=== PATIENT | female | born 1935 | race Caucasian/White ===

== ENCOUNTER 2018-02-04 12:27 | Inpatient (IN) | payer MEDICARE, BC ==
[2018-02-04] MEDS ORDERED: Sodium Chloride 0.9% 1,000 ML IV SCH (13:30)
--- NOTE | 2018-02-04 13:34 | EDM.PDOC ---
ED HPI GENERAL MEDICAL PROBLEM - General Chief Complaint: Gastrointestinal Problem Stated Complaint: WEAK/DEHYDRATED/DISORIENTED Time Seen by Provider: 02/04/18 13:15 Source of Information: Reports: Patient, Family History Limitations: Reports: No Limitations - History of Present Illness INITIAL COMMENTS - FREE TEXT/NARRATIVE: 82-year-old female that struggles with chronic diarrhea likely due to medication she takes for rheumatoid arthritis. She saw her primary provider several days ago, and is rechecking tomorrow but felt especially weak today so her daughter brought her in. She has no shortness of breath or palpitations, no vomiting. She has joint and extremity pain but no abdominal pain. She is also having problems with skin breakdown in the buttock crease area. She has chronic diarrheal incontinence with some urinary incontinence as well. She also seemed somewhat more confused today. Denies headache. Onset: Gradual Severity: Moderate Associated Symptoms: Reports: Confusion, Weakness. Denies: Fever/Chills, Headaches, Nausea/Vomiting, Shortness of Breath Denies Pain Score (Numeric/FACES): 0 - Related Data Allergies Allergy/AdvReac Type Severity Reaction Status Date / Time Sulfa (Sulfonamide Allergy Swelling Verified 02/04/18 16:11 Antibiotics) Home Meds: Home Meds Aspirin [Kathia Chewable Aspirin] 81 mg PO DAILY 05/15/14 [History] Calcium Carbonate/Vitamin D3 [Caltrate 600+D 1500 MG-400 Units] 1 tab PO DAILY 05/15/14 [History] Cholecalciferol (Vitamin D3) [Vitamin D3] 1 tab PO DAILY 05/15/14 [History] Ezetimibe [Zetia] 5 mg PO DAILY 05/15/14 [History] Folic Acid 2 mg PO SUTUWETHFRSA@0900 05/15/14 [History] Leflunomide [Arava] 10 mg PO DAILY 05/15/14 [History] Losartan/Hydrochlorothiazide [Hyzaar 100-25] 0.5 tab PO DAILY 05/15/14 [History] Fenofibric Acid [Fibricor] 135 mg PO DAILY 08/29/16 [History] Methotrexate Sodium/PF [Methotrexate 50 mg/2 ml Vial] 15 mg SQ WEEKLY 08/29/16 [ History] Verapamil HCl [Calan Sr] 180 mg PO DAILY 08/29/16 [History] Past Medical History HEENT History: Reports: Impaired Vision Cardiovascular History: Reports: Hypertension Other Cardiovascular History: congenital septal defect-repaired Gastrointestinal History: Reports: Other (See Below) Other Gastrointestinal History: hx of diarrhea [employer] History: Reports: Musculoskeletal History: Reports: RA Neurological History: Reports: CVA - Infectious Disease History Infectious Disease History: Reports: Chicken Pox, Measles, Mumps - Past Surgical History Cardiovascular Surgical History: Reports: Percutaneous Transluminal Angioplasty GI Surgical History: Reports: Appendectomy, Colon, Colonoscopy Musculoskeletal Surgical History: Reports: Hip Replacement Social & Family History - Tobacco Use Smoking Status *Q: Never Smoker Years of Tobacco use: 40 Used Tobacco, but Quit: Yes Month/Year Tobacco Last Used: 1997 Second Hand Smoke Exposure: No - Caffeine Use Caffeine Use: Reports: Coffee, Soda - Alcohol Use Days Per Week of Alcohol Use: 5 Number of Drinks Per Day: 1 Total Drinks Per Week: 5 - Recreational Drug Use Recreational Drug Use: No ED ROS GENERAL - Review of Systems Review Of Systems: See Below Constitutional: Reports: Malaise, Weakness. Denies: Fever, Chills HEENT: Reports: No Symptoms Respiratory: Denies: Shortness of Breath, Cough Cardiovascular: Denies: Chest Pain GI/Abdominal: Reports: Diarrhea, Decreased Appetite. Denies: Abdominal Pain, Nausea, Vomiting : Reports: Incontinence Skin: Reports: Other (Concerned about skin breakdown in the buttock crease) Neurological: Reports: Confusion, Dizziness, Weakness ED EXAM, GENERAL - Physical Exam Exam: See Below Exam Limited By: No Limitations General Appearance: Alert, No Apparent Distress Eye Exam: Right Eye: Other (No scleral icterus, well-hydrated), Bilateral Eye: EOMI Throat/Mouth: Normal Inspection, Other (Dentures are present) Head: Atraumatic Respiratory/Chest: No Respiratory Distress, Lungs Clear Cardiovascular: Regular Rate, Rhythm, Extra Beats (Patient has frequent extra beats) GI/Abdominal: Soft, Non-Tender (Female) Exam: Other (Patient has significant erythema with developing shallow ulcerations in the creases of the groin and buttock area, likely from the exposure to the diarrhea. These areas are very tender.) Extremities: Other (Some swelling of the ankles bilaterally, chronic) Neurological: Alert, Oriented Psychiatric: Normal Affect, Normal Mood Course - Vital Signs Last Recorded V/S: Last Vital Signs Temp 97.5 F 02/05/18 06:00 Pulse 75 02/05/18 06:00 Resp 14 02/05/18 06:00 BP 142/91 H 02/05/18 06:00 Pulse Ox 97 02/05/18 06:00 - Orders/Labs/Meds Orders: Active Orders 24 hr Category Date Time Status CLOSTRIDIUM DIFFICILE BY PCR [RM] Stat Lab 02/04/18 16:18 Received CULTURE STOOL + SHIGATOX [RM] Stat Lab 02/04/18 16:18 Received UA W/MICROSCOPIC [URIN] Urgent Lab 02/04/18 14:10 Ordered WBC, STOOL [OP] Stat Lab 02/04/18 16:18 Ordered Sodium Chloride 0.9% [Normal Saline] 1,000 ml Med 02/04/18 13:30 Active IV ASDIRECTED Medication Orders Aspirin (Halfprin) 81 mg PO DAILY [facility] Calcium Carbonate (Caltrate 600+D 1500 Mg-400 Units) 1 tab PO DAILY [facility] Cholecalciferol (Vitamin D3) 1,000 units PO DAILY [facility] Diphenoxylate HCl/Atropine (Lomotil 0.025-2.5 Mg) 1 - 2 tab PO QID PRN PRN Reason: Diarrhea Ezetimibe (Zetia) 5 mg PO DAILY [facility] Fenofibrate (Fenofibrate) 134 mg PO DAILY [facility] Folic Acid (Folic Acid) 2 mg PO SUTUWETHFRSA@0900 HENRIQUE Hydrochlorothiazide (Hydrochlorothiazide) 12.5 mg PO DAILY [facility] Sodium Chloride (Normal Saline) 1,000 mls @ 1,000 mls/hr IV ASDIRECTED HENRIQUE Last Admin: 02/04/18 13:39 Dose: 1,000 mls/hr Lactated Ringer's (Ringers, Lactated) 1,000 mls @ 125 mls/hr IV ASDIRECTED HENRIQUE Last Admin: 02/05/18 01:29 Dose: 125 mls/hr Infusion: 02/05/18 01:29 Dose: 125 mls/hr Admin: 02/04/18 17:39 Dose: 125 mls/hr Leflunomide (Arava) 10 mg PO DAILY [facility] Losartan Potassium (Cozaar) 50 mg PO DAILY [facility] Non-Formulary Medication (Methotrexate Sodium/Pf [Methotrexate 50 Mg/2 Ml Vial] ) 15 mg SQ WEEKLY [facility] Verapamil HCl (Calan Sr) 180 mg PO DAILY [facility] Labs: Laboratory Tests 04/02/04/18 02/04/18 Range/Units 13:27 13:27 14:10 WBC 7.9 (4.5-11.0) K/uL RBC 3.59 (3.30-5.50) M/uL Hgb 11.5 L (12.0-15.0) g/dL Hct 35.9 L (36.0-48.0) % MCV 100 H (80-98) fL MCH 32 H (27-31) pg MCHC 32 (32-36) % Plt Count 214 (150-400) K/uL Neut % (Auto) 75 H (36-66) % Lymph % (Auto) 10 L (24-44) % [place] % (Auto) 11 H (2-6) % Eos % (Auto) 3 (2-4) % Baso % (Auto) 1 (0-1) % Sodium 142 (140-148) mmol/L Potassium 4.2 (3.6-5.2) mmol/L Chloride 106 (100-108) mmol/L Carbon Dioxide 27 (21-32) mmol/L Anion Gap 8.9 (5.0-14.0) mmol/L BUN 22 H D (7-18) mg/dL Creatinine 1.0 D (0.6-1.0) mg/dL Est Cr Clr Drug Dosing 38.36 mL/min Estimated GFR (MDRD) 53 L (>60) Glucose 93 (74-106) mg/dL Calcium 9.0 D (8.5-10.1) mg/dL Total Bilirubin 0.8 (0.2-1.0) mg/dL AST 30 (15-37) U/L ALT 26 (12-78) U/L Alkaline Phosphatase 128 H D (46-116) U/L Total Protein 5.9 L (6.4-8.2) g/dL Albumin 3.2 L (3.4-5.0) g/dL Globulin 2.7 (2.3-3.5) g/dL Albumin/Globulin Ratio 1.2 (1.2-2.2) Urine Color Yellow Urine Appearance Clear Urine pH 6.0 (4.5-8.0) Ur Specific [place] 1.010 (1.008-1.030) Urine Protein Negative (NEGATIVE) mg/dL Urine Glucose (UA) Normal (NEGATIVE) mg/dL Urine Ketones Negative (NEGATIVE) mg/dL Urine Occult Blood Negative (NEGATIVE) Urine Nitrite Negative (NEGATIVE) Urine Bilirubin Negative (NEGATIVE) Urine Urobilinogen Normal (NORMAL) mg/dL Ur Leukocyte Esterase Negative (NEGATIVE) Urine RBC Not seen (0-5) Urine WBC Not seen (0-5) Ur Epithelial Cells Few Amorphous Sediment Rare Urine Bacteria Not seen Urine Mucus Not seen Meds: Medications Generic Name Dose Route Start Last Admin Trade Name Freq PRN Reason Stop Dose Admin Aspirin 81 mg 02/05/18 09:00 Halfprin PO DAILY [facility] Calcium Carbonate 1 tab 02/05/18 09:00 Caltrate 600+D 1500 Mg-400 Units PO DAILY HENRIQUE Cholecalciferol 1,000 units 02/05/18 09:00 Vitamin D3 PO DAILY [facility] Diphenoxylate HCl/Atropine 1 - 2 tab 02/04/18 16:19 Lomotil 0.025-2.5 Mg PO QID PRN Diarrhea Ezetimibe 5 mg 02/05/18 09:00 Zetia PO DAILY [facility] Fenofibrate 134 mg 02/05/18 09:00 Fenofibrate PO DAILY [facility]ENRIQUE Folic Acid 2 mg 02/06/18 09:00 Folic Acid PO SUTUWETHFRSA@0900 HENRIQUE Hydrochlorothiazide 12.5 mg 02/05/18 09:00 Hydrochlorothiazide PO DAILY [facility] Sodium Chloride 1,000 mls @ 1,000 mls/hr 02/04/18 13:30 02/04/18 13:39 Normal Saline IV 1,000 mls/hr ASDIRECTED HENRIQUE Administration Lactated Ringer's 1,000 mls @ 125 mls/hr 02/04/18 16:00 02/05/18 01:29 Ringers, Lactated IV 125 mls/hr ASDIRECTED HENRIQUE Administration Leflunomide 10 mg 02/05/18 09:00 Arava PO DAILY [facility] Losartan Potassium 50 mg 02/05/18 09:00 Cozaar PO DAILY [facility] Non-Formulary Medication 15 mg 02/04/18 16:15 Methotrexate Sodium/Pf [Methotrexate 50 Mg/2 Ml Vial] SQ WEEKLY HENRIQUE Verapamil HCl 180 mg 02/05/18 09:00 Calan Sr PO DAILY HENRIQUE - Re-Assessments/Exams Free Text/Narrative Re-Assessment/Exam: 02/04/18 13:34 CBC and CMP were obtained, as well as a quick catheter UA. Patient was given 1000 mL of normal saline. 02/04/18 15:09 UA is normal. CMP reveals a mildly elevated BUN and creatinine, possibly from dehydration. She is mildly anemic but her white count is normal. I discussed her case with her primary care physician Dr. Molina, and he agreed to see her to consider admission for ongoing treatment of profuse watery diarrhea, dehydration, dermatitis of the perineum and buttock as well as weakness. Departure - Departure Time of Disposition: 16:55 Disposition: Admitted As Inpatient 65 Condition: Fair Clinical Impression: Weakness generalized, Dermatitis associated with incontinence Diarrhea Qualifiers: Diarrhea type: unspecified type Qualified Code(s): R19.7 - Diarrhea, unspecified - Discharge Information - My Orders Last 24 Hours: My Active Orders 02/04/18 13:30 Sodium Chloride 0.9% [Normal Saline] 1,000 ml IV ASDIRECTED 02/04/18 14:10 UA W/MICROSCOPIC [URIN] Urgent 02/04/18 16:18 CLOSTRIDIUM DIFFICILE BY PCR [RM] Stat CULTURE STOOL + SHIGATOX [RM] Stat WBC, STOOL [OP] Stat - Assessment/Plan Last 24 Hours: My Active Orders 02/04/18 13:30 Sodium Chloride 0.9% [Normal Saline] 1,000 ml IV ASDIRECTED 02/04/18 14:10 UA W/MICROSCOPIC [URIN] Urgent 02/04/18 16:18 CLOSTRIDIUM DIFFICILE BY PCR [RM] Stat CULTURE STOOL + SHIGATOX [RM] Stat WBC, STOOL [OP] Stat
--- NOTE | 2018-02-04 16:11 | PCM.HP ---
H&P History of Present Illness - General Date of Service: 02/04/18 Admit Problem/Dx: Admission Diagnosis/Problem Admission Diagnosis/Problem Dehydration Source of Information: Patient - History of Present Illness Initial Comments - Free Text/Narative: Ruby has had diarrhea for >1 month according to the . The color is brow without any blood or mucus. She has never had it before. She is unable to control the stool at home and she doesn't make it to the bathroom in time and diarrhea is on the rub and the bed. Severity: Severe Denies Pain Score (Numeric/FACES): 0 - Related Data Allergies/Adverse Reactions: Allergies Allergy/AdvReac Type Severity Reaction Status Date / Time Sulfa (Sulfonamide Allergy Swelling Verified 02/04/18 16:11 Antibiotics) Home Medications: Home Meds Aspirin [Kathia Chewable Aspirin] 81 mg PO DAILY 05/15/14 [History] Calcium Carbonate/Vitamin D3 [Caltrate 600+D 1500 MG-400 Units] 1 tab PO DAILY 05/15/14 [History] Cholecalciferol (Vitamin D3) [Vitamin D3] 1 tab PO DAILY 05/15/14 [History] Ezetimibe [Zetia] 5 mg PO DAILY 05/15/14 [History] Folic Acid 2 mg PO SUTUWETHFRSA@0900 05/15/14 [History] Leflunomide [Arava] 10 mg PO DAILY 05/15/14 [History] Losartan/Hydrochlorothiazide [Hyzaar 100-25] 0.5 tab PO DAILY 05/15/14 [History] Fenofibric Acid [Fibricor] 135 mg PO DAILY 08/29/16 [History] Methotrexate Sodium/PF [Methotrexate 50 mg/2 ml Vial] 15 mg SQ WEEKLY 08/29/16 [ History] Verapamil HCl [Calan Sr] 180 mg PO DAILY 08/29/16 [History] Past Medical History HEENT History: Reports: Impaired Vision Cardiovascular History: Reports: Hypertension Other Cardiovascular History: congenital septal defect-repaired Gastrointestinal History: Reports: Other (See Below) Other Gastrointestinal History: hx of diarrhea [employer] History: Reports: Musculoskeletal History: Reports: RA Neurological History: Reports: CVA - Infectious Disease History Infectious Disease History: Reports: Chicken Pox, Measles, Mumps - Past Surgical History Cardiovascular Surgical History: Reports: Percutaneous Transluminal Angioplasty GI Surgical History: Reports: Appendectomy, Colon, Colonoscopy Musculoskeletal Surgical History: Reports: Hip Replacement Social & Family History - Tobacco Use Smoking Status *Q: Never Smoker Years of Tobacco use: 40 Used Tobacco, but Quit: Yes Month/Year Tobacco Last Used: 1997 Second Hand Smoke Exposure: No - Caffeine Use Caffeine Use: Reports: Coffee, Soda - Alcohol Use Days Per Week of Alcohol Use: 5 Number of Drinks Per Day: 1 Total Drinks Per Week: 5 - Recreational Drug Use Recreational Drug Use: No H&P Review of Systems - Review of Systems: Review Of Systems: See Below General: Reports: Weakness, Fatigue Gastrointestinal: Reports: Diarrhea, Decreased Appetite Genitourinary: Reports: No Symptoms Musculoskeletal: Reports: No Symptoms Skin: Reports: Rash Psychiatric: Reports: No Symptoms Neurological: Reports: No Symptoms Exam - Exam Exam: See Below - Vital Signs Vital Signs: Last Vital Signs Temp 96.8 F 02/04/18 13:01 Pulse 80 02/04/18 14:00 Resp 16 02/04/18 14:00 BP 168/87 H 02/04/18 14:00 Pulse Ox 96 02/04/18 14:00 Weight: 160 lb - Exam General: Alert, Oriented, Cooperative, Mild Distress HEENT: PERRLA, Hearing Intact, Mucosa Moist & [place], Nares Patent, Normal Nasal Septum, Posterior Pharynx Clear, Conjunctiva Clear, EOMI, EACs Clear, TMs Clear Neck: Supple, Trachea Midline, 2 Lungs: Clear to Auscultation, Normal Respiratory Effort Cardiovascular: Regular Rate, Regular Rhythm GI/Abdominal Exam: Normal Bowel Sounds, Soft, Non-Tender, No Organomegaly, No Distention, No Abnormal Bruit, No Mass, Pelvis Stable Extremities: Normal Inspection, Normal Range of Motion, Non-Tender, No Pedal Edema, Normal Capillary Refill Peripheral Pulses: 1+: Radial (L), Radial (R) Skin: Warm, Dry, Intact Neuro Extensive - Mental Status: Alert, Oriented x3, Normal Mood/Affect, Normal Cognition Neuro Extensive - Motor, Sensory, Reflexes: CN II-XII Intact, Normal Gait, Normal Reflexes DTR: 1+: Bicep (L), Bicep (R) Psychiatric: Alert, Normal Affect, Normal Mood - Patient Data Lab Results Last 24 hrs: Laboratory Results - last 24 hr 02/04/18 02/04/18 02/04/18 Range/Units 13:27 13:27 14:10 WBC 7.9 (4.5-11.0) K/uL RBC 3.59 (3.30-5.50) M/uL Hgb 11.5 L (12.0-15.0) g/dL Hct 35.9 L (36.0-48.0) % MCV 100 H (80-98) fL MCH 32 H (27-31) pg MCHC 32 (32-36) % Plt Count 214 (150-400) K/uL Neut % (Auto) 75 H (36-66) % Lymph % (Auto) 10 L (24-44) % [place] % (Auto) 11 H (2-6) % Eos % (Auto) 3 (2-4) % Baso % (Auto) 1 (0-1) % Sodium 142 (140-148) mmol/L Potassium 4.2 (3.6-5.2) mmol/L Chloride 106 (100-108) mmol/L Carbon Dioxide 27 (21-32) mmol/L Anion Gap 8.9 (5.0-14.0) mmol/L BUN 22 H D (7-18) mg/dL Creatinine 1.0 D (0.6-1.0) mg/dL Est Cr Clr Drug Dosing 38.36 mL/min Estimated GFR (MDRD) 53 L (>60) Glucose 93 (74-106) mg/dL Calcium 9.0 D (8.5-10.1) mg/dL Total Bilirubin 0.8 (0.2-1.0) mg/dL AST 30 (15-37) U/L ALT 26 (12-78) U/L Alkaline Phosphatase 128 H D (46-116) U/L Total Protein 5.9 L (6.4-8.2) g/dL Albumin 3.2 L (3.4-5.0) g/dL Globulin 2.7 (2.3-3.5) g/dL Albumin/Globulin Ratio 1.2 (1.2-2.2) Urine Color Yellow Urine Appearance Clear Urine pH 6.0 (4.5-8.0) Ur Specific [place] 1.010 (1.008-1.030) Urine Protein Negative (NEGATIVE) mg/dL Urine Glucose (UA) Normal (NEGATIVE) mg/dL Urine Ketones Negative (NEGATIVE) mg/dL Urine Occult Blood Negative (NEGATIVE) Urine Nitrite Negative (NEGATIVE) Urine Bilirubin Negative (NEGATIVE) Urine Urobilinogen Normal (NORMAL) mg/dL Ur Leukocyte Esterase Negative (NEGATIVE) Urine RBC Not seen (0-5) Urine WBC Not seen (0-5) Ur Epithelial Cells Few Amorphous Sediment Rare Urine Bacteria Not seen Urine Mucus Not seen Result Diagrams: 02/04/18 13:27 02/04/18 13:27 Problem List Initiated/Reviewed/Updated: Yes Orders Last 24hrs: Active Orders 24 hr Category Date Time Status Patient Status [ADT] Routine ADT 02/04/18 15:56 Ordered Ambulate [RC] QID Care 02/04/18 15:56 Ordered Height and Weight [RC] DAILY Care 02/04/18 15:56 Ordered Intake and Output [RC] QSHIFT Care 02/04/18 16:00 Ordered Oxygen Therapy [RC] PRN Care 02/04/18 15:56 Ordered Up ad Allison [RC] ASDIRECTED Care 02/04/18 15:56 Ordered VTE/DVT Education [RC] Per Unit Routine Care 02/04/18 15:56 Ordered Vital Signs [RC] Q4H Care 02/04/18 15:56 Ordered Regular Diet [DIET] Diet 02/04/18 Dinner Ordered BASIC METABOLIC PANEL,BMP [CHEM] AM Lab 02/05/18 05:11 Ordered CLOSTRIDIUM DIFFICILE BY PCR [] Stat Lab 02/04/18 15:11 Ordered CULTURE STOOL + SHIGATOX [] Stat Lab 02/04/18 15:11 Ordered UA W/MICROSCOPIC [URIN] Urgent Lab 02/04/18 14:10 Ordered WBC, STOOL [OP] Stat Lab 02/04/18 15:11 Ordered Aspirin Med 02/05/18 09:00 Ordered 81 mg PO DAILY Calcium Carbonate/Vitamin D3 [Caltrate 600+D 1500 MG- Med 02/05/18 09:00 Ordered 400 Units] 1 tab PO DAILY Cholecalciferol (Vitamin D3) [Vitamin D3] Med 02/05/18 09:00 Ordered 1 tab PO DAILY Ezetimibe [Zetia] Med 02/05/18 09:00 Ordered 5 mg PO DAILY Fenofibric Acid [Fibricor] Med 02/05/18 09:00 Ordered 135 mg PO DAILY Folic Acid Med 02/06/18 09:00 Ordered 2 mg PO SUTUWETHFRSA@0900 Lactated Ringers @ 125 MLS/HR(1000ml) Med 02/04/18 16:00 Ordered Lactated Ringers [Ringers, Lactated] 1,000 ml IV ASDIRECTED Leflunomide [Arava] Med 02/05/18 09:00 Ordered 10 mg PO DAILY Losartan/Hydrochlorothiazide [Hyzaar 100-25] Med 02/05/18 09:00 Ordered 0.5 tab PO DAILY Methotrexate Sodium/PF [Methotrexate 50 mg/2 ml Vial] Med 02/04/18 16:15 Ordered 15 mg SQ WEEKLY Sodium Chloride 0.9% [Normal Saline] 1,000 ml Med 02/04/18 13:30 Active IV ASDIRECTED Verapamil [Calan SR] Med 02/05/18 09:00 Ordered 180 mg PO DAILY Resuscitation Status Routine Resus Stat 02/04/18 15:56 Ordered Medication Orders Aspirin (Aspirin) 81 mg PO DAILY [facility]ENRI[facility] Calcium Carbonate (Caltrate 600+D 1500 Mg-400 Units) 1 tab PO DAILY [facility] Ezetimibe (Zetia) 5 mg PO DAILY [facility] Folic Acid (Folic Acid) 2 mg PO SUTUWETHFRSA@0900 HENRIQUE Sodium Chloride (Normal Saline) 1,000 mls @ 1,000 mls/hr IV ASDIRECTED HENRIQUE Last Admin: 02/04/18 13:39 Dose: 1,000 mls/hr Lactated Ringer's (Ringers, Lactated) 1,000 mls @ 125 mls/hr IV ASDIRECTED HENRIQUE Non-Formulary Medication (Cholecalciferol (Vitamin D3) [Vitamin D3]) 1 tab PO DAILY [facility]QUE Non-Formulary Medication (Fenofibric Acid [Fibricor]) 135 mg PO DAILY [facility]RIQUE Non-Formulary Medication (Leflunomide [Arava]) 10 mg PO DAILY [facility] Non-Formulary Medication (Losartan/Hydrochlorothiazide [Hyzaar 100-25]) 0.5 tab PO DAILY [facility]RIQUE Non-Formulary Medication (Methotrexate Sodium/Pf [Methotrexate 50 Mg/2 Ml Vial] ) 15 mg SQ WEEKLY [facility]ENRIQUE Verapamil HCl (Calan Sr) 180 mg PO DAILY HENRIQUE Assessment/Plan Comment:: Assessment/Plan: #1. Diarrhea: Stool tests are pending. Will give Lomotil as Needed #2. HTN: Continue with Verapamil and Losartan #3. HLD: Will hold Zetia #4. RA: Continue with Meds.
[2018-02-04] MEDS ORDERED: Atropine/Diphenoxylate 0.025-2.5 MG Tab PO PRN (16:19)
[2018-02-04] MEDS: Lactated Ringers 1,000 ML IV SCH (17:39)
[2018-02-04] MEDS ORDERED: Diphtheria,Pertussis(Acell),Tetanus Vaccine 0.5 ML SDV IM ONE (23:01)
[2018-02-05] MEDS: Lactated Ringers 1,000 ML IV SCH (01:29)
[2018-02-05] MEDS: Fenofibrate,Micronized 67 MG Cap PO SCH (10:13)
[2018-02-05] MEDS: Ezetimibe 10 MG Tab PO SCH (10:13)
[2018-02-05] MEDS: Cholecalciferol (Vitamin D3) 1,000 Unit Tab PO SCH (10:14)
[2018-02-05] MEDS: Calcium Carbonate/Vitamin D3 1500 MG-400 Units Tab PO SCH (10:14)
[2018-02-05] MEDS: Verapamil 180 MG Tab.ER PO SCH (10:14)
[2018-02-05] MEDS: Hydrochlorothiazide 12.5 MG Cap PO SCH (10:14)
[2018-02-05] MEDS: Aspirin 81 MG Tab.EC PO SCH (10:14)
[2018-02-05] MEDS: Leflunomide 20 MG Tab PO SCH (10:14)
[2018-02-05] MEDS: Losartan 50 MG Tab PO SCH (10:15)
[2018-02-05] MEDS ORDERED: Polyethylene Glycol 3350 Powder 238 GM Bot PO ONE (18:10)
--- NOTE | 2018-02-05 18:13 | PCM.PN ---
- General Info Date of Service: 02/05/18 - Review of Systems General: Reports: Weakness HEENT: Reports: No Symptoms Pulmonary: Reports: No Symptoms Cardiovascular: Reports: No Symptoms Gastrointestinal: Reports: No Symptoms Genitourinary: Reports: No Symptoms Musculoskeletal: Reports: No Symptoms Psychiatric: Reports: No Symptoms - Patient Data Vitals - Most Recent: Last Vital Signs Temp 98.0 F 02/05/18 12:00 Pulse 80 02/05/18 12:00 Resp 18 02/05/18 12:00 BP 150/80 H 02/05/18 12:00 Pulse Ox 96 02/05/18 12:00 Weight - Most Recent: 163 lb I&O - Last 24 Hours: Intake & Output 02/05/18 02/05/18 02/05/18 06:59 14:59 22:59 Intake Total 1359 500 Output Total 500 500 1 Balance 859 0 -1 Lab Results Last 24 Hours: Laboratory Results - last 24 hr 02/05/18 Range/Units 05:37 Sodium 146 (140-148) mmol/L Potassium 3.8 (3.6-5.2) mmol/L Chloride 110 H (100-108) mmol/L Carbon Dioxide 29 (21-32) mmol/L Anion Gap 10.8 (5.0-14.0) mmol/L BUN 16 (7-18) mg/dL Creatinine 0.8 (0.6-1.0) mg/dL Est Cr Clr Drug Dosing 47.87 mL/min Estimated GFR (MDRD) > 60 (>60) Glucose 85 (74-106) mg/dL Calcium 8.4 L (8.5-10.1) mg/dL [place] Results Last 24 Hours: Microbiology 02/04/18 16:18 Clostridium difficile (PCR) - Final Stool / Feces NEGATIVE CDIFF TOXIN 02/04/18 16:18 Stool for WBCs - Final Stool / Feces NO WBC SEEN Med Orders - Current: Current Medications Aspirin (Halfprin) 81 mg PO DAILY [facility] Last Admin: 02/05/18 10:14 Dose: 81 mg Calcium Carbonate (Caltrate 600+D 1500 Mg-400 Units) 1 tab PO DAILY [facility] Last Admin: 02/05/18 10:14 Dose: 1 tab Cholecalciferol (Vitamin D3) 1,000 units PO DAILY [facility] Last Admin: 02/05/18 10:14 Dose: 1,000 units Diphenoxylate HCl/Atropine (Lomotil 0.025-2.5 Mg) 1 - 2 tab PO QID PRN PRN Reason: Diarrhea Last Admin: 02/05/18 17:19 Dose: 2 tab Ezetimibe (Zetia) 5 mg PO DAILY [facility] Last Admin: 02/05/18 10:13 Dose: 5 mg Fenofibrate (Fenofibrate) 134 mg PO DAILY [facility] Last Admin: 02/05/18 10:13 Dose: 134 mg Folic Acid (Folic Acid) 2 mg PO SUTUWETHFRSA@0900 [facility] Hydrochlorothiazide (Hydrochlorothiazide) 12.5 mg PO DAILY [facility] Last Admin: 02/05/18 10:14 Dose: 12.5 mg Sodium Chloride (Normal Saline) 1,000 mls @ 1,000 mls/hr IV ASDIRECTED [facility] Last Admin: 02/04/18 13:39 Dose: 1,000 mls/hr Lactated Ringer's (Ringers, Lactated) 1,000 mls @ 125 mls/hr IV ASDIRECTED [facility] Last Admin: 02/05/18 01:29 Dose: 125 mls/hr Leflunomide (Arava) 10 mg PO DAILY [facility] Last Admin: 02/05/18 10:14 Dose: 10 mg Losartan Potassium (Cozaar) 50 mg PO DAILY [facility] Last Admin: 02/05/18 10:15 Dose: 50 mg Non-Formulary Medication (Methotrexate Sodium/Pf [Methotrexate 50 Mg/2 Ml Vial] ) 15 mg SQ WEEKLY [facility] Verapamil HCl (Calan Sr) 180 mg PO DAILY [facility] Last Admin: 02/05/18 10:14 Dose: 180 mg - Exam General: Alert, Oriented HEENT: Pupils Equal, Pupils Reactive, EOMI, Mucous Membr. Moist/[place] Neck: Supple Lungs: Clear to Auscultation, Normal Respiratory Effort Cardiovascular: Regular Rate, Regular Rhythm GI/Abdominal Exam: Normal Bowel Sounds, Soft, Non-Tender, No Organomegaly, No Distention, No Abnormal Bruit, No Mass, Pelvis Stable Peripheral Pulses: 1+: Radial (L), Radial (R) Psy/Mental Status: Alert, Normal Affect, Normal Mood - Problem List Review Problem List Initiated/Reviewed/Updated: Yes - My Orders Last 24 Hours: My Active Orders 02/05/18 08:25 Convert IV to Peripheral Lock [Convert IV to Saline Lock] [OM.PC] Routine 02/05/18 09:00 Aspirin [Halfprin] 81 mg PO DAILY Calcium Carbonate/Vitamin D3 [Caltrate 600+D 1500 MG-400 Units] 1 tab PO DAILY Cholecalciferol (Vitamin D3) [Vitamin D3] 1,000 units PO DAILY Ezetimibe [Zetia] 5 mg PO DAILY Fenofibrate,Micronized [Fenofibrate] 134 mg PO DAILY Hydrochlorothiazide 12.5 mg PO DAILY Leflunomide [Arava] 10 mg PO DAILY Losartan [Cozaar] 50 mg PO DAILY Verapamil [Calan SR] 180 mg PO DAILY 02/05/18 11:38 Consult to Occupational Therapy [OT Evaluation and Treatment] [CONS] Routine SCD [Sequential Compression Device] [OM.PC] Routine 02/06/18 09:00 Folic Acid 2 mg PO IHSAN@0900 - Plan Plan:: Assessment/Plan: #1. Diarrhea: Stool tests are pending. Will give Lomotil as Needed. Willl schedule for colonoscopy and EGD tomorrow. #2. HTN: Continue with Verapamil and Losartan #3. HLD: Will hold Zetia #4. RA: Continue with Meds. #5. Rash in rectal area
[2018-02-05] MEDS ORDERED: Bisacodyl 5 MG Tab PO SCH (18:15)
[2018-02-05] MEDS ORDERED: Dimethicone 20%/Zinc Oxide 25% 56 GM Spray Bottle TOP PRN (21:47)
[2018-02-05] MEDS ORDERED: Bisacodyl 5 MG Tab PO ONE (23:00)
[2018-02-06] MEDS ORDERED: fentaNYL 100 MCG/2 ML SDV ONE (10:01)
[2018-02-06] MEDS ORDERED: Propofol 200 MG/20 ML SDV ONE (10:01)
[2018-02-06] MEDS: Calcium Carbonate/Vitamin D3 1500 MG-400 Units Tab PO SCH (12:46)
[2018-02-06] MEDS: Ezetimibe 10 MG Tab PO SCH (13:46)
[2018-02-06] MEDS: Verapamil 180 MG Tab.ER PO SCH (13:46)
[2018-02-06] MEDS: Losartan 50 MG Tab PO SCH (13:47)
[2018-02-06] MEDS: Aspirin 81 MG Tab.EC PO SCH (13:47)
[2018-02-06] MEDS: Cholecalciferol (Vitamin D3) 1,000 Unit Tab PO SCH (13:47)
[2018-02-06] MEDS: Fenofibrate,Micronized 67 MG Cap PO SCH (13:47)
[2018-02-06] MEDS: Folic Acid 1 MG Tab PO SCH (13:47)
[2018-02-06] MEDS: Hydrochlorothiazide 12.5 MG Cap PO SCH (13:47)
[2018-02-06] MEDS: Leflunomide 20 MG Tab PO SCH (13:48)
[2018-02-06] MEDS ORDERED: Methotrexate PF 50 MG/2 ML SDV SUBCUT SCH (14:00)
[2018-02-06] MEDS: Pantoprazole 40 MG Tab.CR PO SCH (15:00)
--- NOTE | 2018-02-06 20:53 | PCM.PN ---
- General Info Date of Service: 02/06/18 - Review of Systems General: Reports: Weakness HEENT: Reports: No Symptoms Pulmonary: Reports: No Symptoms Cardiovascular: Reports: No Symptoms Gastrointestinal: Reports: No Symptoms, Diarrhea Genitourinary: Reports: No Symptoms Musculoskeletal: Reports: No Symptoms Skin: Reports: No Symptoms Neurological: Reports: No Symptoms Psychiatric: Reports: No Symptoms - Patient Data Vitals - Most Recent: Last Vital Signs Temp 96.7 F 02/06/18 18:00 Pulse 68 02/06/18 18:00 Resp 14 02/06/18 18:00 BP 121/53 L 02/06/18 18:00 Pulse Ox 96 02/06/18 18:00 Weight - Most Recent: 163 lb I&O - Last 24 Hours: Intake & Output 02/06/18 02/06/18 02/06/18 06:59 14:59 22:59 Intake Total 1100 600 Output Total 350 300 Balance 1100 -350 300 [place] Results Last 24 Hours: Microbiology 02/04/18 16:18 Stool Culture - Preliminary Stool / Feces NORMAL ENTERIC ANALI 1 DAY - Final NEGATIVE FOR SHIGA TOXIN 1 - Final NEGATIVE FOR SHIGA TOXIN 2 Clostridium difficile (PCR) - Final NEGATIVE CDIFF TOXIN Med Orders - Current: Current Medications Aspirin (Halfprin) 81 mg PO DAILY [facility] Last Admin: 02/06/18 13:47 Dose: 81 mg Calcium Carbonate (Caltrate 600+D 1500 Mg-400 Units) 1 tab PO DAILY [facility] Last Admin: 02/06/18 12:46 Dose: Not Given Cholecalciferol (Vitamin D3) 1,000 units PO DAILY [facility] Last Admin: 02/06/18 13:47 Dose: 1,000 units Dimethicone/Zinc Oxide (Rash Relief-Zinc Oxide [place]) 0 gm TOP ASDIRECTED PRN PRN Reason: Rash Last Admin: 02/05/18 22:27 Dose: 1 applic Diphenoxylate HCl/Atropine (Lomotil 0.025-2.5 Mg) 1 - 2 tab PO QID PRN PRN Reason: Diarrhea Last Admin: 02/05/18 17:19 Dose: 2 tab Ezetimibe (Zetia) 5 mg PO DAILY [facility] Last Admin: 02/06/18 13:46 Dose: 5 mg Fenofibrate (Fenofibrate) 134 mg PO DAILY [facility] Last Admin: 02/06/18 13:47 Dose: 134 mg Folic Acid (Folic Acid) 2 mg PO SUTUWETHFRSA@0900 REPL[facility]ED [facility] Last Admin: 02/06/18 13:47 Dose: 2 mg Hydrochlorothiazide (Hydrochlorothiazide) 12.5 mg PO DAILY [facility] Last Admin: 02/06/18 13:47 Dose: 12.5 mg Leflunomide (Arava) 10 mg PO DAILY [facility] Last Admin: 02/06/18 13:48 Dose: 10 mg Losartan Potassium (Cozaar) 50 mg PO DAILY [facility] Last Admin: 02/06/18 13:47 Dose: 50 mg Methotrexate Sodium (Methotrexate Pf) 15 mg SUBCUT Tu@1400 REPLACED BY [facility] Last Admin: 02/06/18 14:13 Dose: 15 mg Pantoprazole Sodium (Protonix) 40 mg PO DAILY@0730 REPLACED BY [facility] Last Admin: 02/06/18 15:00 Dose: 40 mg Verapamil HCl (Calan Sr) 180 mg PO DAILY [facility] Last Admin: 02/06/18 13:46 Dose: 180 mg Discontinued Medications Bisacodyl (Dulcolax) 10 mg PO DAILY [facility] Last Admin: 02/05/18 18:35 Dose: 10 mg Bisacodyl (Dulcolax) 10 mg PO ONETIME ONE Stop: 02/05/18 23:01 Last Admin: 02/05/18 22:18 Dose: 10 mg Fentanyl (Sublimaze) Confirm Administered Dose 100 mcg .ROUTE .STK-MED ONE Stop: 02/06/18 10:02 Sodium Chloride (Normal Saline) 1,000 mls @ 1,000 mls/hr IV ASDIRECTED REPLACED BY [facility] Last Admin: 02/04/18 13:39 Dose: 1,000 mls/hr Lactated Ringer's (Ringers, Lactated) 1,000 mls @ 125 mls/hr IV ASDIRECTED REPLACED BY [facility] Last Admin: 02/05/18 01:29 Dose: 125 mls/hr Polyethylene Glycol (Miralax) 238 gm PO ONETIME ONE Stop: 02/05/18 18:11 Last Admin: 02/05/18 18:35 Dose: 238 gm Propofol (Diprivan 20 Ml) Confirm Administered Dose 200 mg .ROUTE .STK-MED ONE Stop: 02/06/18 10:02 - Exam General: Alert, Oriented HEENT: Pupils Equal, Pupils Reactive, EOMI, Mucous Membr. Moist/[place] Neck: Supple Lungs: Clear to Auscultation, Normal Respiratory Effort Cardiovascular: Regular Rate, Regular Rhythm GI/Abdominal Exam: Non-Tender Peripheral Pulses: 1+: Radial (L), Radial (R) Skin: Warm, Dry, Intact Psy/Mental Status: Alert, Normal Affect, Normal Mood - Problem List Review Problem List Initiated/Reviewed/Updated: Yes - My Orders Last 24 Hours: My Active Orders 02/05/18 21:47 Dimethicone/Zinc Oxide [Rash Relief-Zinc Oxide [place]] 0 gm TOP ASDIRECTED PRN 02/06/18 09:00 Verify Patient Consent Obtain [RC] ASDIRECTED Folic Acid 2 mg PO SUTUWETHFRSA@0900 02/06/18 10:50 IDA TEST [RM] Routine 02/06/18 14:00 Methotrexate PF 15 mg SUBCUT Tu@1400 02/06/18 15:00 Pantoprazole [ProTONIX] 40 mg PO DAILY@0730 02/06/18 Dinner Advance Diet Instructions [DIET] - Plan Plan:: Assessment/Plan: #1. Diarrhea: Neg stools so far. EGD showed severe gastritis bx pending. Colon was normal. #2. HTN: Continue with Verapamil and Losartan #3. HLD: Will hold Zetia #4. RA: Continue with Meds. #5. Rash in rectal area Plan home in the AM is stable.+
--- NOTE | 2018-02-07 08:03 | PCM.PN ---
- General Info Date of Service: 02/07/18 - Review of Systems General: Reports: No Symptoms HEENT: Reports: No Symptoms Pulmonary: Reports: No Symptoms Cardiovascular: Reports: No Symptoms Gastrointestinal: Reports: No Symptoms Genitourinary: Reports: No Symptoms Musculoskeletal: Reports: No Symptoms Skin: Reports: No Symptoms Neurological: Reports: No Symptoms Psychiatric: Reports: No Symptoms - Patient Data Vitals - Most Recent: Last Vital Signs Temp 97.7 F 02/07/18 05:25 Pulse 80 02/07/18 05:25 Resp 18 02/07/18 05:25 BP 147/72 H 02/07/18 05:25 Pulse Ox 96 02/07/18 05:25 Weight - Most Recent: 163 lb I&O - Last 24 Hours: Intake & Output 02/06/18 02/07/18 02/07/18 22:59 06:59 14:59 Intake Total 600 Output Total 300 200 325 Balance 300 -200 -325 [place] Results Last 24 Hours: Microbiology 02/04/18 16:18 Stool Culture - Preliminary Stool / Feces NORMAL ENTERIC ANALI 2 DAYS - Final NEGATIVE FOR SHIGA TOXIN 1 - Final NEGATIVE FOR SHIGA TOXIN 2 Clostridium difficile (PCR) - Final NEGATIVE CDIFF TOXIN Med Orders - Current: Current Medications Cholecalciferol (Vitamin D3) 1,000 units PO DAILY [facility] Last Admin: 02/06/18 13:47 Dose: 1,000 units Diphenoxylate HCl/Atropine (Lomotil 0.025-2.5 Mg) 1 - 2 tab PO QID PRN PRN Reason: Diarrhea Last Admin: 02/05/18 17:19 Dose: 2 tab Fenofibrate (Fenofibrate) 134 mg PO DAILY [facility] Last Admin: 02/06/18 13:47 Dose: 134 mg Folic Acid (Folic Acid) 2 mg PO SUTUWETHFRSA@0900 [facility] Last Admin: 02/06/18 13:47 Dose: 2 mg Hydrochlorothiazide (Hydrochlorothiazide) 12.5 mg PO DAILY [facility] Last Admin: 02/06/18 13:47 Dose: 12.5 mg Leflunomide (Arava) 10 mg PO DAILY [facility] Last Admin: 02/06/18 13:48 Dose: 10 mg Losartan Potassium (Cozaar) 50 mg PO DAILY [facility] Last Admin: 02/06/18 13:47 Dose: 50 mg Methotrexate Sodium (Methotrexate Pf) 15 mg SUBCUT Tu@1400 [facility] Last Admin: 02/06/18 14:13 Dose: 15 mg Pantoprazole Sodium (Protonix) 40 mg PO DAILY@0730 [facility] Last Admin: 02/06/18 15:00 Dose: 40 mg Verapamil HCl (Calan Sr) 180 mg PO DAILY [facility] Last Admin: 02/06/18 13:46 Dose: 180 mg Discontinued Medications Aspirin (Halfprin) 81 mg PO DAILY [facility] Last Admin: 02/06/18 13:47 Dose: 81 mg Bisacodyl (Dulcolax) 10 mg PO DAILY [facility] Last Admin: 02/05/18 18:35 Dose: 10 mg Bisacodyl (Dulcolax) 10 mg PO ONETIME ONE Stop: 02/05/18 23:01 Last Admin: 02/05/18 22:18 Dose: 10 mg Calcium Carbonate (Caltrate 600+D 1500 Mg-400 Units) 1 tab PO DAILY [facility] Last Admin: 02/06/18 12:46 Dose: Not Given Dimethicone/Zinc Oxide (Rash Relief-Zinc Oxide [place]) 0 gm TOP ASDIRECTED PRN PRN Reason: Rash Last Admin: 02/05/18 22:27 Dose: 1 applic Ezetimibe (Zetia) 5 mg PO DAILY [facility] Last Admin: 02/06/18 13:46 Dose: 5 mg Fentanyl (Sublimaze) Confirm Administered Dose 100 mcg .ROUTE .STK-MED ONE Stop: 02/06/18 10:02 Sodium Chloride (Normal Saline) 1,000 mls @ 1,000 mls/hr IV ASDIRECTED [facility] Last Admin: 02/04/18 13:39 Dose: 1,000 mls/hr Lactated Ringer's (Ringers, Lactated) 1,000 mls @ 125 mls/hr IV ASDIRECTED [facility] Last Admin: 02/05/18 01:29 Dose: 125 mls/hr Polyethylene Glycol (Miralax) 238 gm PO ONETIME ONE Stop: 02/05/18 18:11 Last Admin: 02/05/18 18:35 Dose: 238 gm Propofol (Diprivan 20 Ml) Confirm Administered Dose 200 mg .ROUTE .STK-MED ONE Stop: 02/06/18 10:02 - Exam General: Alert, Oriented HEENT: Pupils Equal, Pupils Reactive, EOMI, Mucous Membr. Moist/[place] Neck: Supple Lungs: Clear to Auscultation Cardiovascular: Regular Rate, Regular Rhythm GI/Abdominal Exam: Normal Bowel Sounds, Soft, Non-Tender, No Organomegaly, No Distention, No Abnormal Bruit, No Mass, Pelvis Stable Back Exam: Normal Inspection Extremities: Normal Inspection, Normal Range of Motion, Non-Tender, No Pedal Edema, Normal Capillary Refill Peripheral Pulses: 1+: Radial (L), Radial (R) Skin: Warm, Dry, Intact Neurological: No New Focal Deficit Psy/Mental Status: Alert, Normal Affect, Normal Mood - Problem List Review Problem List Initiated/Reviewed/Updated: Yes - My Orders Last 24 Hours: My Active Orders 02/06/18 09:00 Verify Patient Consent Obtain [RC] ASDIRECTED Folic Acid 2 mg PO SUTUWETHFRSA@0900 02/06/18 10:50 IDA TEST [RM] Routine 02/06/18 14:00 Methotrexate PF 15 mg SUBCUT Tu@1400 02/06/18 15:00 Pantoprazole [ProTONIX] 40 mg PO DAILY@0730 02/06/18 Dinner Advance Diet Instructions [DIET] 02/07/18 07:39 Ready for Discharge [RC] PER UNIT ROUTINE - Plan Plan:: Assessment/Plan: #1. Diarrhea: Neg stools so far. EGD showed severe gastritis bx pending. Colon was normal. I will discharge home today she will be taking Protonix 40 mg a day for the gastric mucosal erythema and biopsies are pending. She can also use Lomotil if she does have loose stools. If the diarrhea continues I will stop some of the medicine that she is taking. #2. HTN: Continue with Verapamil and Losartan Her blood pressure is slightly elevated. #3. HLD: stable. #4. RA: Continue with Meds. #5. Rash in rectal area Plan home today.
--- NOTE | 2018-02-07 08:06 | PCM.DCSUM1 ---
Discharge Summary - Hospital Course Brief History: Ruby was admitted after having significant amount of diarrhea unable to control her stools and unable to get to the bathroom because of diarrhea which she's had for almost a month. - Discharge Data Discharge Date: 02/07/18 Discharge Disposition: Home, Self-Care 01 Condition: Stable - Patient Summary/Data Consults: Consultations 02/05/18 11:38 Consult to Occupational Therapy [OT Evaluation and Treatment] [CONS] Routine Please Evaluate and Treat. OT Reason for Consult: mini mental Special Instructions: confusion, safety This query below is only for informational purposes and is not editable. Admission Diagnosis/Problem: Dehydration Hospital Course: While in the hospital her diarrhea continued and was having diarrhea. An esophageal gastroduodenoscopy was done which showed severe gastritis biopsy report is still pending at the time of discharge. Colonoscopy was done which was negative. Evaluation of the stools for C. difficile and other values including ova and parasites and Giardia have been negative so far. - Patient Instructions Diet: Heart Healthy Diet Activity: As Tolerated - Discharge Plan Home Medications: Home Meds Aspirin [Kahtia Chewable Aspirin] 81 mg PO DAILY 05/15/14 [History] Calcium Carbonate/Vitamin D3 [Caltrate 600+D 1500 MG-400 Units] 1 tab PO DAILY 05/15/14 [History] Cholecalciferol (Vitamin D3) [Vitamin D3] 1 tab PO DAILY 05/15/14 [History] Ezetimibe [Zetia] 5 mg PO DAILY 05/15/14 [History] Folic Acid 2 mg PO SUTUWETHFRSA@0900 05/15/14 [History] Leflunomide [Arava] 10 mg PO DAILY 05/15/14 [History] Losartan/Hydrochlorothiazide [Hyzaar 100-25] 0.5 tab PO DAILY 05/15/14 [History] Fenofibric Acid [Fibricor] 135 mg PO DAILY 08/29/16 [History] Methotrexate Sodium/PF [Methotrexate 50 mg/2 ml Vial] 15 mg SQ WEEKLY 08/29/16 [ History] Verapamil HCl [Calan Sr] 180 mg PO DAILY 08/29/16 [History] Atropine/Diphenoxylate [Diphenoxylate-Atropine] 1 - 2 tab PO QID PRN tablet 11/26 [Rx] Pantoprazole [ProTONIX] 40 mg PO DAILY@0730 tab.cr 02/07/18 [Rx] Forms: ED Department Discharge Referrals: Marv Molina Sr, MD [Primary Care Provider] - - Discharge Summary/Plan Comment DC Time >30 min.: Yes Discharge Summary/Plan Comment: Assessment/Plan: #1. Diarrhea: Neg stools so far. EGD showed severe gastritis bx pending. Colon was normal. I will discharge home today she will be taking Protonix 40 mg a day for the gastric mucosal erythema and biopsies are pending. She can also use Lomotil if she does have loose stools. If the diarrhea continues I will stop some of the medicine that she is taking. #2. HTN: Continue with Verapamil and Losartan Her blood pressure is slightly elevated. #3. HLD: stable. #4. RA: Continue with Meds. #5. Rash in rectal area Plan home today. - General Info Date of Service: 02/07/18 Subjective Update: She's doing much better the day of discharge without any complaints and she is had no diarrhea. - Review of Systems General: Reports: No Symptoms HEENT: Reports: No Symptoms Pulmonary: Reports: No Symptoms Cardiovascular: Reports: No Symptoms Gastrointestinal: Reports: No Symptoms Genitourinary: Reports: No Symptoms Musculoskeletal: Reports: No Symptoms Skin: Reports: No Symptoms Neurological: Reports: No Symptoms Psychiatric: Reports: No Symptoms - Patient Data Vitals - Most Recent: Last Vital Signs Temp 97.7 F 02/07/18 05:25 Pulse 80 02/07/18 05:25 Resp 18 02/07/18 05:25 BP 147/72 H 02/07/18 05:25 Pulse Ox 96 02/07/18 05:25 Weight - Most Recent: 163 lb I&O - Last 24 hours: Intake & Output 02/06/18 02/07/18 02/07/18 22:59 06:59 14:59 Intake Total 600 Output Total 300 200 325 Balance 300 -200 -325 [place] Results - Last 24 hrs: Microbiology 02/04/18 16:18 Stool Culture - Preliminary Stool / Feces NORMAL ENTERIC ANALI 2 DAYS - Final NEGATIVE FOR SHIGA TOXIN 1 - Final NEGATIVE FOR SHIGA TOXIN 2 Clostridium difficile (PCR) - Final NEGATIVE CDIFF TOXIN Med Orders - Current: Current Medications Cholecalciferol (Vitamin D3) 1,000 units PO DAILY [facility] Last Admin: 02/06/18 13:47 Dose: 1,000 units Diphenoxylate HCl/Atropine (Lomotil 0.025-2.5 Mg) 1 - 2 tab PO QID PRN PRN Reason: Diarrhea Last Admin: 02/05/18 17:19 Dose: 2 tab Fenofibrate (Fenofibrate) 134 mg PO DAILY [facility] Last Admin: 02/06/18 13:47 Dose: 134 mg Folic Acid (Folic Acid) 2 mg PO SUTUWETHFRSA@0900 [facility] Last Admin: 02/06/18 13:47 Dose: 2 mg Hydrochlorothiazide (Hydrochlorothiazide) 12.5 mg PO DAILY [facility] Last Admin: 02/06/18 13:47 Dose: 12.5 mg Leflunomide (Arava) 10 mg PO DAILY [facility] Last Admin: 02/06/18 13:48 Dose: 10 mg Losartan Potassium (Cozaar) 50 mg PO DAILY [facility] Last Admin: 02/06/18 13:47 Dose: 50 mg Methotrexate Sodium (Methotrexate Pf) 15 mg SUBCUT Tu@1400 [facility] Last Admin: 02/06/18 14:13 Dose: 15 mg Pantoprazole Sodium (Protonix) 40 mg PO DAILY@0730 [facility] Last Admin: 02/06/18 15:00 Dose: 40 mg Verapamil HCl (Calan Sr) 180 mg PO DAILY [facility] Last Admin: 02/06/18 13:46 Dose: 180 mg Discontinued Medications Aspirin (Halfprin) 81 mg PO DAILY [facility] Last Admin: 02/06/18 13:47 Dose: 81 mg Bisacodyl (Dulcolax) 10 mg PO DAILY [facility] Last Admin: 02/05/18 18:35 Dose: 10 mg Bisacodyl (Dulcolax) 10 mg PO ONETIME ONE Stop: 02/05/18 23:01 Last Admin: 02/05/18 22:18 Dose: 10 mg Calcium Carbonate (Caltrate 600+D 1500 Mg-400 Units) 1 tab PO DAILY [facility] Last Admin: 02/06/18 12:46 Dose: Not Given Dimethicone/Zinc Oxide (Rash Relief-Zinc Oxide [place]) 0 gm TOP ASDIRECTED PRN PRN Reason: Rash Last Admin: 02/05/18 22:27 Dose: 1 applic Ezetimibe (Zetia) 5 mg PO DAILY [facility] Last Admin: 02/06/18 13:46 Dose: 5 mg Fentanyl (Sublimaze) Confirm Administered Dose 100 mcg .ROUTE .STK-MED ONE Stop: 02/06/18 10:02 Sodium Chloride (Normal Saline) 1,000 mls @ 1,000 mls/hr IV ASDIRECTED [facility] Last Admin: 02/04/18 13:39 Dose: 1,000 mls/hr Lactated Ringer's (Ringers, Lactated) 1,000 mls @ 125 mls/hr IV ASDIRECTED [facility] Last Admin: 02/05/18 01:29 Dose: 125 mls/hr Polyethylene Glycol (Miralax) 238 gm PO ONETIME ONE Stop: 02/05/18 18:11 Last Admin: 02/05/18 18:35 Dose: 238 gm Propofol (Diprivan 20 Ml) Confirm Administered Dose 200 mg .ROUTE .STK-MED ONE Stop: 02/06/18 10:02 - Exam General: Reports: Alert, Oriented HEENT: Reports: Pupils Equal, Pupils Reactive, EOMI, Mucous Membr. Moist/[place] Neck: Reports: Supple Lungs: Reports: Clear to Auscultation, Normal Respiratory Effort Cardiovascular: Reports: Regular Rate, Regular Rhythm GI/Abdominal Exam: Normal Bowel Sounds, Soft, Non-Tender, No Organomegaly, No Distention, No Abnormal Bruit, No Mass, Pelvis Stable Back Exam: Reports: Normal Inspection, Full Range of Motion Extremities: Normal Inspection, Normal Range of Motion, Non-Tender, No Pedal Edema, Normal Capillary Refill Skin: Reports: Warm, Dry, Intact Psy/Mental Status: Reports: Alert
[2018-02-07 08:33] VITALS: BP 156/71
--- NOTE | 2018-02-07 09:33 | PROC ---
DATE OF PROCEDURE: 02/06/2018 INDICATION: Ruby is an 82-year-old female, who comes in because of diarrhea, has been in the hospital, was found unable to control her stools at home and unable to get to the bathroom in time. She has had this for about a month. Her stool was brown in color. She has a history of a hemicolectomy in the past. The risks and benefits were explained to her to have an esophagogastroduodenoscopy. PROCEDURE IN DETAIL: The Olympus 180 scope was used, was placed into the pharynx and into the esophagus without difficulty. We immediately got into the stomach and noticed significant erythema and lesions throughout stomach. The tube was advanced into the first and second part of the duodenum. Upon retraction of the tube, we noted very minimal duodenal erythema. The tube was brought back into the stomach, which revealed significant erythema. Biopsy was done for Helicobacter pylori, as well as cytology. Got good observation of the greater and lesser curvature and the antrum, which revealed erythema throughout the entire gastric mucosa. The GE junction was identified. Air was withdrawn from the stomach. There was a hiatal hernia noted. The remainder of the esophagus was unremarkable. Vocal cords moved symmetrically, no obvious pathology noted. The tube was removed and the patient tolerated the procedure well. PREOPERATIVE DIAGNOSIS: Diarrhea. POSTOPERATIVE DIAGNOSIS: Severe gastric mucosa erythema, biopsies pending for Helicobacter pylori and cytology. Marv Molina MD /[id number]
--- NOTE | 2018-02-07 09:36 | PROC ---
DATE OF PROCEDURE: 02/06/2018 PROCEDURE: Colonoscopy. INDICATION: Ruby is an 82-year-old female, who has had diarrhea for over a month, comes in for a colonoscopy. The risks and benefits were explained to the patient and was taken to the OR. PROCEDURE IN DETAIL: Anesthesia was given by the nurse boom operator. During the procedure, we used 100 mcg of fentanyl and 130 mg of propofol. With a gloved finger, the rectum was examined, and the tube was placed into the rectum and advanced under direct vision. We did get to the anastomotic site. On retraction of the tube, noted no lesions, ulceration, or abnormality throughout the entire colon. There were a few diverticula noted. The prep was adequate. No abnormality was found. The rectum was unremarkable as well. The tube was removed. The patient tolerated the procedure well. PREOPERATIVE DIAGNOSIS: Diarrhea. POSTOPERATIVE DIAGNOSIS: Normal chas-colon. No obvious pathology noted. Marv Molina MD /[id number]
[2018-02-07] MEDS: Verapamil 180 MG Tab.ER PO SCH (09:56)
[2018-02-07] MEDS: Leflunomide 20 MG Tab PO SCH (09:56)
[2018-02-07] MEDS: Folic Acid 1 MG Tab PO SCH (09:56)
[2018-02-07] MEDS: Pantoprazole 40 MG Tab.CR PO SCH (09:56)
[2018-02-07] MEDS: Fenofibrate,Micronized 67 MG Cap PO SCH (09:56)
[2018-02-07] MEDS: Cholecalciferol (Vitamin D3) 1,000 Unit Tab PO SCH (09:56)
[2018-02-07] MEDS: Losartan 50 MG Tab PO SCH (09:57)
[2018-02-07] MEDS: Hydrochlorothiazide 12.5 MG Cap PO SCH (09:57)
[2018-02-07] MEDS ORDERED: methylPREDNISolone Acetate 80 MG/ML SDV ONE (11:00)
[2018-02-07] MEDS ORDERED: Bupivacaine 0.25% 10 ML SDV ONE (11:00)
== END 2018-02-07 12:20 | disposition home or self-care (01) | DRG 392 ==
LOC: JP.ED 12:27 → JP.MS 15:56
PROVIDERS: ADMIT Internal Medicine; ATTEND Internal Medicine
PROC: 0DJD8ZZ Inspection of Lower Intestinal Tract, Via Natural or Artificial Opening Endoscopic (ICD-10-PCS; principal; 2018-02-06)
PROC: 0DB68ZX Excision of Stomach, Via Natural or Artificial Opening Endoscopic, Diagnostic (ICD-10-PCS; 2018-02-06)
DX: R19.7 Diarrhea, unspecified (principal); E86.0 Dehydration; M06.9 Rheumatoid arthritis, unspecified; K29.70 Gastritis, unspecified, without bleeding; K44.9 Diaphragmatic hernia without obstruction or gangrene; Z66 Do not resuscitate; R53.1 Weakness; I10 Essential (primary) hypertension; Z87.891 Personal history of nicotine dependence; M16.9 Osteoarthritis of hip, unspecified; L25.8 Unspecified contact dermatitis due to other agents; E78.5 Hyperlipidemia, unspecified; Z86.73 Personal history of transient ischemic attack (TIA), and cerebral infarction without residual deficits; H54.7 Unspecified visual loss; Z96.649 Presence of unspecified artificial hip joint; Z79.82 Long term (current) use of aspirin; Z88.2 Allergy status to sulfonamides; Z90.49 Acquired absence of other specified parts of digestive tract
CPT/HCPCS: 36415; 80053; 81001; 85025; 96360; 99285; J7040; 80048; 87046; 87081; 87177; 87209; 87338; 87493; 87899; 89055; 96125-GO; 99283; A9270-GY; J1040; J2704; J3010; J7120; J9260

== ENCOUNTER 2018-12-04 09:49 | Emergency (ER) | payer MEDICARE, BC ==
[2018-12-04] MEDS ORDERED: Sodium Chloride 0.9% 10 ML Syringe FLUSH PRN (10:22)
--- NOTE | 2018-12-04 10:27 | EDM.PDOC ---
ED HPI GENERAL MEDICAL PROBLEM - General Chief Complaint: Cardiovascular Problem Stated Complaint: SENT FROM DR. VAN Time Seen by Provider: 12/04/18 10:00 Source of Information: Reports: Patient, Assisted Records, Provider History Limitations: Reports: No Limitations - History of Present Illness INITIAL COMMENTS - FREE TEXT/NARRATIVE: 83-year-old female [facility] to [facility]. Apparently she was hypotensive yesterday, so some routine labs were obtained and she was found to be pancytopenic with a hemoglobin of 6.5 , platelet count of 12,000, and severely low WBC with a high percentage of lymphocytes. Dr. Van, her primary provider consulted oncology at [facility] in [place], and acceptance was obtained from Dr. Stephens. EMS would not transfer the patient directly from the [facility] and needed the patient's stability assess for so brought her here. She has no complaints other than fatigue and thirst. She denies any pain other than some sores in her mouth. Onset: Unknown/Unsure - Related Data Allergies Allergy/AdvReac Type Severity Reaction Status Date / Time Sulfa (Sulfonamide Allergy Swelling Verified 12/04/18 10:12 Antibiotics) Home Meds: Home Meds Aspirin [Kathia Chewable Aspirin] 81 mg PO DAILY 05/15/14 [History] Calcium Carbonate/Vitamin D3 [Caltrate 600+D 1500 MG-400 Units] 1 tab PO BID 04/21 [History] Cholecalciferol (Vitamin D3) [Vitamin D3] 1 tab PO DAILY 05/15/14 [History] Folic Acid 2 mg PO SUTUWETHFRSA@0900 05/15/14 [History] Leflunomide [Arava] 10 mg PO DAILY 05/15/14 [History] Methotrexate Sodium/PF [Methotrexate 50 mg/2 ml Vial] 25 mg SQ WEEKLY 08/29/16 [ History] Verapamil HCl [Calan Sr] 200 mg PO DAILY 08/29/16 [History] Atropine/Diphenoxylate [Diphenoxylate-Atropine] 1 - 2 tab PO QID PRN tablet 11/26 [Rx] Ezetimibe 5 mg PO DAILY 10/03/18 [History] Furosemide 20 mg PO DAILY 10/03/18 [History] Potassium Chloride 10 meq PO DAILY 10/03/18 [History] Vitamin B6-pyridOXINE 1 tab PO DAILY 10/03/18 [History] Losartan/Hydrochlorothiazide [Losartan-HCTZ 50-12.5 MG] 1 tab PO DAILY 10/11/18 [History] Acetaminophen [Tylenol] 650 mg PO Q4H PRN tablet 10/15/18 [Rx] Bisacodyl [Dulcolax] 10 mg RECTAL BID PRN supp 10/15/18 [Rx] Docusate Sodium [Colace] 100 mg PO DAILY cap 10/15/18 [Rx] Magnesium Hydroxide [Milk of Magnesia] 30 ml PO BID PRN cup 10/15/18 [Rx] Past Medical History HEENT History: Reports: Impaired Vision Cardiovascular History: Reports: Hypertension Other Cardiovascular History: congenital septal defect-repaired Gastrointestinal History: Reports: Other (See Below) Other Gastrointestinal History: hx of diarrhea [employer] History: Reports: Musculoskeletal History: Reports: Osteoporosis, RA Neurological History: Reports: CVA, TIA Psychiatric History: Reports: Dementia Endocrine/Metabolic History: Reports: Osteoporosis - Infectious Disease History Infectious Disease History: Reports: Chicken Pox - Past Surgical History Cardiovascular Surgical History: Reports: Percutaneous Transluminal Angioplasty GI Surgical History: Reports: Appendectomy, Colon, Colonoscopy Musculoskeletal Surgical History: Reports: Hip Replacement Social & Family History - Family History Family Medical History: Noncontributory - Tobacco Use Smoking Status *Q: Unknown Ever Smoked - Caffeine Use Caffeine Use: Reports: Coffee - Recreational Drug Use Recreational Drug Use: No ED ROS GENERAL - Review of Systems Review Of Systems: See Below Constitutional: Denies: Fever HEENT: Denies: Nosebleed Respiratory: Denies: Shortness of Breath Cardiovascular: Denies: Chest Pain GI/Abdominal: Denies: Abdominal Pain, Hematochezia : Denies: Dysuria, Hematuria Skin: Reports: Pallor. Denies: Bruising ED EXAM, GENERAL - Physical Exam Exam: See Below Exam Limited By: No Limitations General Appearance: Alert, No Apparent Distress Eye Exam: Bilateral Eye: EOMI (Conjunctiva are pale) Throat/Mouth: Other (Patient has dentures in place) Respiratory/Chest: No Respiratory Distress, Lungs Clear Cardiovascular: Regular Rate, Rhythm, Systolic Murmur (2/6), Extra Beats GI/Abdominal: Non-Tender Neurological: Alert, Oriented Psychiatric: Normal Affect, Normal Mood Skin Exam: Warm, Dry, Pallor Course - Vital Signs Last Recorded V/S: Last Vital Signs Temp 97.4 F 12/04/18 10:09 Pulse 83 12/04/18 12:48 Resp 16 12/04/18 12:48 BP 107/51 L 12/04/18 12:48 Pulse Ox 95 12/04/18 12:48 - Orders/Labs/Meds Orders: Active Orders 24 hr Category Date Time Status Saline Lock Insert [OM.PC] Routine Oth 12/04/18 10:22 Ordered Meds: Medications Discontinued Medications Generic Name Dose Route Start Last Admin Trade Name Freq PRN Reason Stop Dose Admin Sodium Chloride 10 ml 12/04/18 10:22 12/04/18 10:24 Saline Flush FLUSH 10 ml ASDIRECTED PRN Administration Keep Vein Open - Re-Assessments/Exams Free Text/Narrative Re-Assessment/Exam: 12/04/18 10:26 Saline lock was inserted. [facility] was consulted to initiate transfer, unfortunately there is no bed available at this time and there intention [facility], they will now call us. Departure - Departure Time of Disposition: 12:59 Disposition: DC/Tfer to Acute Hospital 02 Reason for Transfer *Q: Other Condition: Poor Clinical Impression: Pancytopenia Referrals: Marv Van Sr, MD [Primary Care Provider] - Forms: ED Department Discharge - My Orders Last 24 Hours: My Active Orders 12/04/18 10:22 Saline Lock Insert [OM.PC] Routine - Assessment/Plan Last 24 Hours: My Active Orders 12/04/18 10:22 Saline Lock Insert [OM.PC] Routine
[2018-12-04 12:49] VITALS: BP 107/51
== END 2018-12-04 13:25 ==
LOC: JP.ED 09:49
DX: D61.818 Other pancytopenia (principal); I10 Essential (primary) hypertension; Z79.899 Other long term (current) drug therapy; Z79.82 Long term (current) use of aspirin; Z88.2 Allergy status to sulfonamides
CPT/HCPCS: 99284

== ENCOUNTER 2019-02-16 18:26 | Emergency (ER) | payer MEDICARE, BC ==
[2019-02-16] MEDS ORDERED: Metoclopramide 10 MG/2 ML SDV IVPUSH ONE (19:06)
--- NOTE | 2019-02-16 19:21 | EDM.PDOC ---
ED HPI GENERAL MEDICAL PROBLEM - General Chief Complaint: Gastrointestinal Problem Stated Complaint: MEDICAL [facility] [place] Time Seen by Provider: 02/16/19 19:20 Source of Information: Reports: Patient, EMS, Assisted Records, Other ( nursing contacted [facility] facility) History Limitations: Reports: Altered Mental Status, Other (moderate distress due to abdominal pain and vomiting ) - History of Present Illness INITIAL COMMENTS - FREE TEXT/NARRATIVE: Alert pleasantly confused anxious appearing 83-year-old female brought to the ER via EMS. Patient does not offer anything in way of complaints she does not know why she is here. Patient is actively vomiting in the room upon my evaluation and incontinent of stool. She doesn't know why she is having this incontinence and vomiting, she is unable to tell us her last name. Nursing staff does not know if family is here or coming. [facility] was called for a report on pt since one had not been received. Report per nursing staff, patient was out with her family when she got sick and starting with some confusion. Family described as droopiness and bobbling head, starting around 1600 today. care home called the [facility] physician and had patient sent to ED here via [facility]. Onset: Sudden Onset Date: 02/16/19 Location: Reports: Abdomen Associated Symptoms: Reports: Confusion, Nausea/Vomiting - Related Data Allergies Allergy/AdvReac Type Severity Reaction Status Date / Time Sulfa (Sulfonamide Allergy Swelling Verified 02/16/19 18:46 Antibiotics) Home Meds: Home Meds Verapamil HCl [Calan Sr] 180 mg PO DAILY 08/29/16 [History] Potassium Chloride 10 meq PO DAILY 10/03/18 [History] Losartan/Hydrochlorothiazide [Losartan-HCTZ 50-12.5 MG] 1 tab PO DAILY 10/11/18 [History] Acetaminophen [Tylenol] 650 mg PO Q4H PRN tablet 10/15/18 [Rx] Docusate Sodium [Colace] 100 mg PO DAILY cap 10/15/18 [Rx] Magnesium Hydroxide [Milk of Magnesia] 30 ml PO BID PRN cup 10/15/18 [Rx] Pyridoxine HCl [Vitamin B-6] 100 mg PO DAILY 02/16/19 [History] Past Medical History HEENT History: Reports: Impaired Vision Cardiovascular History: Reports: Hypertension Other Cardiovascular History: congenital septal defect-repaired Gastrointestinal History: Reports: Chronic Constipation, Chronic Diarrhea, Other (See Below) Other Gastrointestinal History: hx of diarrhea [employer] History: Reports: Musculoskeletal History: Reports: Osteoporosis, RA Neurological History: Reports: CVA, TIA Psychiatric History: Reports: Dementia Endocrine/Metabolic History: Reports: Osteoporosis - Infectious Disease History Infectious Disease History: Reports: Chicken Pox - Past Surgical History Cardiovascular Surgical History: Reports: Percutaneous Transluminal Angioplasty GI Surgical History: Reports: Appendectomy, Colon, Colonoscopy Musculoskeletal Surgical History: Reports: Hip Replacement Social & Family History - Family History Family Medical History: Noncontributory - Tobacco Use Smoking Status *Q: Former Smoker Used Tobacco, but Quit: Yes Month/Year Tobacco Last Used: 21 years - Caffeine Use Caffeine Use: Reports: Coffee - Recreational Drug Use Recreational Drug Use: No ED ROS GENERAL - Review of Systems Review Of Systems: Unable To Obtain (confusion and vomiting) ED EXAM, GENERAL - Physical Exam Exam: See Below Exam Limited By: Other (unable to follow commands or instructions) General Appearance: Alert, WD/WN, Anxious, Moderate Distress Ears: Normal External Exam, Normal Canal, Hearing Grossly Normal, Normal TMs Nose: Normal Inspection, Normal Mucosa, No Blood Throat/Mouth: Normal Inspection, Normal Lips, Normal Gums, Normal Oropharynx, Normal Voice, No Airway Compromise. No: Normal Teeth Head: Normocephalic Neck: Normal Inspection, Supple, Non-Tender, Full Range of Motion Respiratory/Chest: No Respiratory Distress, Lungs Clear, Normal Breath Sounds, No Accessory Muscle Use, Chest Non-Tender Cardiovascular: Normal Peripheral Pulses, Regular Rate, Rhythm, No Edema, Systolic Murmur, Extra Beats. No: Tachycardia GI/Abdominal: Soft, Non-Tender, Abnormal Bowel Sounds, Other (vomiting ) (Female) Exam: Deferred Rectal (Female) Exam: Deferred Back Exam: Normal Inspection, Full Range of Motion, NT Extremities: Normal Inspection, Normal Range of Motion, Non-Tender, Normal Capillary Refill, No Pedal Edema Neurological: Confused, Memory Loss Recent Events, Abnormal Gait Psychiatric: Normal Mood, Anxious Skin Exam: Warm, Dry, Intact, Normal Color, No Rash EKG INTERPRETATION EKG Date: 02/16/19 Time: 19:17 Rhythm: NSR Rate (Beats/Min): 81 [place]: Normal P-Wave: Present QRS: Other (PVCs present) ST-T: Normal QT: Normal Comparison: NA - No Prior EKG Course - Vital Signs Last Recorded V/S: Last Vital Signs Temp 36.9 C 02/16/19 18:42 Pulse 76 02/16/19 21:26 Resp 18 02/16/19 21:26 BP 138/65 02/16/19 21:26 Pulse Ox 92 L 02/16/19 21:26 - Orders/Labs/Meds Orders: Active Orders 24 hr Category Date Time Status EKG Documentation Completion [RC] ASDIRECTED Care 02/16/19 19:03 Active Gong Catheter Insertion [Insert Urinary Catheter] [OM. Care 02/16/19 19:30 Ordered PC] Q24H Peripheral IV Care [RC] . DIRECTED Care 02/16/19 19:03 Active Urinary Catheter Assessment [RC] ASDIRECTED Care 02/16/19 19:21 Active CULTURE BLOOD [BC] Urgent Lab 02/16/19 19:10 Received CULTURE BLOOD [BC] Urgent Lab 02/16/19 19:25 Received CULTURE URINE [RM] Stat Lab 02/16/19 19:33 Received Sodium Chloride 0.9% [Normal Saline] 1,000 ml Med 02/16/19 21:00 Active IV ASDIRECTED Sodium Chloride 0.9% [Saline Flush] Med 02/16/19 19:01 Active 10 ml FLUSH ASDIRECTED PRN Blood Culture x2 Reflex Set [OM.PC] Urgent Oth 02/16/19 19:02 Ordered Peripheral IV Insertion Adult [OM.PC] Stat Oth 02/16/19 19:02 Ordered EKG 12 Lead [EK] Stat Ther 02/16/19 19:02 Ordered Medication Orders Sodium Chloride (Normal Saline) 1,000 mls @ 500 mls/hr IV ASDIRECTED HENRIQUE Last Admin: 02/16/19 21:20 Dose: 500 mls/hr Sodium Chloride (Saline Flush) 10 ml FLUSH ASDIRECTED PRN PRN Reason: Keep Vein Open Last Admin: 02/16/19 21:21 Dose: 10 ml Admin: 02/16/19 19:23 Dose: 10 ml Labs: Laboratory Tests 02/16/19 02/16/19 02/16/19 Range/Units 19:02 19:02 19:02 WBC 5.2 (4.5-11.0) K/uL RBC 3.40 (3.30-5.50) M/uL Hgb 10.7 L D (12.0-15.0) g/dL Hct 33.8 L (36.0-48.0) % MCV 99 H (80-98) fL MCH 32 H (27-31) pg MCHC 32 (32-36) % Plt Count 240 (150-400) K/uL Neut % (Auto) 65 (36-66) % Lymph % (Auto) 18 L (24-44) % [place] % (Auto) 14 H (2-6) % Eos % (Auto) 2 (2-4) % Baso % (Auto) 1 (0-1) % Sodium 139 L (140-148) mmol/L Potassium 3.7 (3.6-5.2) mmol/L Chloride 103 (100-108) mmol/L Carbon Dioxide 27 (21-32) mmol/L Anion Gap 12.7 (5.0-14.0) mmol/L BUN 19 H D (7-18) mg/dL Creatinine 0.9 D (0.6-1.0) mg/dL Est Cr Clr Drug Dosing 41.87 mL/min Estimated GFR (MDRD) 60 (>60) Glucose 129 H (74-106) mg/dL Lactic Acid 1.7 (0.4-2.0) mmol/L Calcium 9.3 (8.5-10.1) mg/dL Total Bilirubin 0.3 (0.2-1.0) mg/dL AST 25 (15-37) U/L ALT 22 (12-78) U/L Alkaline Phosphatase 123 H (46-116) U/L Troponin I < 0.017 (0.000-0.056) ng/mL Total Protein 6.3 L (6.4-8.2) g/dL Albumin 2.9 L (3.4-5.0) g/dL Globulin 3.4 (2.3-3.5) g/dL Albumin/Globulin Ratio 0.9 L (1.2-2.2) Lipase 252 (73-393) U/L Urine Color Urine Appearance Urine pH (4.5-8.0) Ur Specific [place] (1.008-1.030) Urine Protein (NEGATIVE) mg/dL Urine Glucose (UA) (NEGATIVE) mg/dL Urine Ketones (NEGATIVE) mg/dL Urine Occult Blood (NEGATIVE) Urine Nitrite (NEGATIVE) Urine Bilirubin (NEGATIVE) Urine Urobilinogen (NORMAL) mg/dL Ur Leukocyte Esterase (NEGATIVE) Urine RBC (0-5) Urine WBC (0-5) Ur Epithelial Cells Amorphous Sediment Urine Bacteria Urine Mucus 02/16/19 Range/Units 19:32 WBC (4.5-11.0) K/uL RBC (3.30-5.50) M/uL Hgb (12.0-15.0) g/dL Hct (36.0-48.0) % MCV (80-98) fL MCH (27-31) pg MCHC (32-36) % Plt Count (150-400) K/uL Neut % (Auto) (36-66) % Lymph % (Auto) (24-44) % [place] % (Auto) (2-6) % Eos % (Auto) (2-4) % Baso % (Auto) (0-1) % Sodium (140-148) mmol/L Potassium (3.6-5.2) mmol/L Chloride (100-108) mmol/L Carbon Dioxide (21-32) mmol/L Anion Gap (5.0-14.0) mmol/L BUN (7-18) mg/dL Creatinine (0.6-1.0) mg/dL Est Cr Clr Drug Dosing mL/min Estimated GFR (MDRD) (>60) Glucose (74-106) mg/dL Lactic Acid (0.4-2.0) mmol/L Calcium (8.5-10.1) mg/dL Total Bilirubin (0.2-1.0) mg/dL AST (15-37) U/L ALT (12-78) U/L Alkaline Phosphatase (46-116) U/L Troponin I (0.000-0.056) ng/mL Total Protein (6.4-8.2) g/dL Albumin (3.4-5.0) g/dL Globulin (2.3-3.5) g/dL Albumin/Globulin Ratio (1.2-2.2) Lipase (73-393) U/L Urine Color Yellow Urine Appearance Slightly cloudy Urine pH 6.0 (4.5-8.0) Ur Specific [place] 1.020 (1.008-1.030) Urine Protein Negative (NEGATIVE) mg/dL Urine Glucose (UA) Normal (NEGATIVE) mg/dL Urine Ketones Negative (NEGATIVE) mg/dL Urine Occult Blood Negative (NEGATIVE) Urine Nitrite Positive H (NEGATIVE) Urine Bilirubin Negative (NEGATIVE) Urine Urobilinogen Normal (NORMAL) mg/dL Ur Leukocyte Esterase Small (NEGATIVE) Urine RBC Not seen (0-5) Urine WBC 40-50 H (0-5) Ur Epithelial Cells Rare Amorphous Sediment Not seen Urine Bacteria Many Urine Mucus Not seen Meds: Medications Generic Name Dose Route Start Last Admin Trade Name Freq PRN Reason Stop Dose Admin Sodium Chloride 1,000 mls @ 500 mls/hr 02/16/19 21:00 02/16/19 21:20 Normal Saline IV 500 mls/hr ASDIRECTED HENRIQUE Administration Sodium Chloride 10 ml 02/16/19 19:01 02/16/19 21:21 Saline Flush FLUSH 10 ml ASDIRECTED PRN Administration Keep Vein Open Discontinued Medications Generic Name Dose Route Start Last Admin Trade Name Freq PRN Reason Stop Dose Admin Ceftriaxone Sodium 1 gm/ 50 mls @ 100 mls/hr 02/16/19 20:34 02/16/19 21:21 Sodium Chloride IV 02/16/19 21:03 100 mls/hr ONETIME ONE Administration Lorazepam 0.5 mg 02/16/19 20:53 02/16/19 21:20 Ativan IVPUSH 02/16/19 20:54 0.5 mg ONETIME ONE Administration Metoclopramide HCl 5 mg 02/16/19 19:06 02/16/19 19:22 Reglan IVPUSH 02/16/19 19:07 5 mg ONETIME ONE Administration - Radiology Interpretation Free Text/Narrative:: CXR PA: No acute cardiopulmonary findings. Mild cardiomegaly with interstitial lung disease noted. Abdomen flat and left lateral decubitus: Normal bowel gas pattern. No signs of bowel obstruction noted. Comparison: May 2018 CT Head: Atrophy noted no significant intracranial abnormality, signs of acute hemorrhagic or ischemic stroke no masses noted. Images read by myself during the ER visit. Radiology report pending. [facility] Radiology report available and reviewed: CT HEAD: Impression: Impression vertigo limited due to patient motion artifact. Age-related atrophy and chronic microvascular disease. No acute intracranial abnormality. No hemorrhage or mass effect. - Re-Assessments/Exams Free Text/Narrative Re-Assessment/Exam: 02/16/19 20:09 Patient's past medical history was reviewed. I visited the patient in the room where history was collected and physical examination was performed. IV was inserted and blood was drawn. I reviewed the physical examination findings with the patient and caregivers. The patient was given the above interventions. MDM: Alert but slightly agitated 83-year-old female who appears uncomfortable due to vomiting and intermittent confusion. Patient does have baseline underlying dementia. Patient's visiting with her family on and off all day she has had episodes of nodding off and transfusion and then clears briefly and then reoccurs and confusion. Her daughters have been with her most of the day along with her fell. Patient has had episodes of brief confusion in the past and has had a history of urinary tract infections. Due to acute confusion CT head was obtained which showed no intracranial abnormalities per my read. Chest x-ray showed no acute cardiopulmonary findings. Abdominal series flat and left lateral decubitus showed no signs of bowel obstruction and no air-fluid levels. Patient is given a dose of reglan without any recurrent episodes of vomiting. Laboratory studies revealed fairly normal white count without a significant shift differential. 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 I believe she is not posing significant immune response or a shift in her white blood cells due to age and immunodeficiency. Urinalysis shows positive nitrate trace leukocyte esterase and moderate amount of white blood cells with bacteria. Previous urine cultures were reviewed patient has numerous positive UC, Escherichia coli which are all da silva sensitive. Patient is given Rocephin 1GM IV and IVF. I spoke with Dr. Molina regarding observation status and admission. I did reiterate to the family that it's the same care would be available at the [facility] facility overnight. Dr. Molina is comfortable admitting the patient under observation status but would be more appropriate for her to return to the skilled facility after initiating treatment. Patient be transitioned to oral medications at home for repeat Rocephin dose tomorrow at the [facility] facility. I spoke with the family regarding placement under observation status after IV antibiotics. Family is comfortable with the patient returning back to the skilled facility for continued care with primary care provider. Disposition: HOME, Return to SNF [facility] I reevaluated the patient and discussed the results of the above workup. I discussed follow up instructions and signs and symptoms that should prompt return to the emergency department. The patient expressed understanding and the patient was discharged. Encouraged close follow up with PCP. Return to an ER if symptoms worsen or new symptoms develop. Patient/Family/Friend voiced understanding and agreed to treatment plan. 02/16/19 20:54 02/16/19 20:59 Departure - Departure Time of Disposition: 22:15 Disposition: DC/Tfer to SNF 03 Condition: Fair Clinical Impression: UTI, Urinary tract infectious disease - Discharge Information Instructions: Urinary Tract Infection, Adult, Urine Culture and Sensitivity Testing, Antibiotic Medicine, Adult, Dehydration, Elderly, [id number] Referrals: Marv Molina Sr, MD [Primary Care Provider] - Forms: ED Department Discharge Additional Instructions: UTI 1. PUSH FLUIDS. 2. TYLENOL 500-1000mg every 6-8 hours for fever and pain. 3. Rocephin 1GM IV given during ER visit which is good for [address] Molina to evaluate tomorrow for repeat Rocephin IM dosing or transition to oral antibiotic. 5. RETURN TO ER FOR WORSENING SYMPTOMS, FEVER, VOMITING, CONCERNS OR CHANGES. THE DISCHARGE INSTRUCTIONS ARE INTENDED A COMPLEMENT TO AND NOT A REPLACEMENT FOR THE VERBAL INSTRUCTIONS THAT I HAVE PROVIDED YOU TODAY. AFTER GOING OVER THE PLAN OF CARE TONIGHT AND PROVIDING YOU WITH THE VERBAL INSTRUCTIONS AT DISCHARGE YOU HAVE HAD THE OPPORTUNITY TO ASK FURTHER QUESTIONS AND TO CLARIFY UNCERTAINTIES. THANK YOU FOR ALLOWING US TO ASSIST WITH YOUR MEDICAL CONCERNS AND NEEDS. YOU HAVE BEEN GIVEN AN ANTIBIOTIC. YOUR ANTIBIOTIC SHOULD BE GIVEN/TAKEN DIRECTED. TAKE UNTIL MEDICATION IS GONE EVEN IF YOU ARE FEELING BETTER. THIS WILL PREVENT INCREASED RISK OF WORSE INFECTION DUE TO PARTIAL TREATMENT. Discharge Instructions Urinary Tract Infection You or your child have been diagnosed with a urinary tract infection, or UTI. The urinary tract includes the kidneys (which make urine/pee), ureters (the tubes that carry urine/pee from the kidneys to the bladder), the bladder (which stores urine/pee), and urethra (the tube that carries urine/pee out of the bladder). Urinary tract infections occur when bacteria travel up the urethra into the bladder (bladder infection) and, in some cases, from there into the kidneys (kidney infection). Generally, every Emergency Department visit should have a follow-up clinic visit with either a primary or a specialty clinic/provider. Please follow-up as instructed by your emergency provider today. Return to the Emergency Department if: You or your child have severe back pain. You or your child are vomiting (throwing up) so that you cannot take your medicine. You or your child have a new fever (had not previously had a fever) over 101 F. You or your child have confusion or are very weak, or feel very ill. Your child seems much more ill, will not wake up, will not respond right, or is crying for a long time and will not calm down. You or your child are showing signs of dehydration. These signs may include decreased urination (pee), dry mouth/gums/tongue, or decreased activity. Follow-up with your provider: Children under 24 months need to be seen by their regular provider within one week after a diagnosis of a UTI. It may be necessary to do some more tests to look at the jovanni kidney or bladder. You should begin to feel better within 24 48 hours of starting your antibiotic ; follow-up with your regular clinic/doctor/provider if this is not the case. Treatment: You will be treated with an antibiotic to kill the bacteria. We have to make an educated guess, based on what we know about common bacteria and antibiotics, as to which antibiotic will work for your infection. We will be correct most times but there will be some cases where the antibiotic chosen is not correct (see urine cultures below). Take a pain medication such as acetaminophen (Tylenol) or ibuprofen (Advil, Motrin, Nuprin). Phenazopyridine (Pyridium, Uristat) is a prescription medication that numbs the bladder to reduce the burning pain of some UTIs. The same medication is available in a non-prescription version (Azo-Standard, Urodol). This medication will change the color of the urine and tears (usually blue or orange) . If you wear contacts, do not wear them while taking this medication as they may be stained by the medication. Urine Cultures: If indicated, a urine culture may have been performed today. This test generally takes 24-48 hours to complete so the results are not known at this time. The results can confirm that an infection is present but also determine which antibiotic is effective for the specific bacteria that is causing the infection. If your urine culture shows that the antibiotic you were given today will not work to treat your infection, we will attempt to contact you to make arrangements to change the antibiotic. If the culture confirms that the antibiotic is effective for your infection, you will not be contacted. We often recommend follow-up with your regular physician/provider on the culture results regardless of this process. Antibiotic Warning: If you have been placed on antibiotics watch for signs of allergic reaction. These include rash, lip swelling, difficulty breathing, wheezing, and dizziness. If you develop any of these symptoms, stop the antibiotic immediately and go to an emergency room or urgent care for evaluation. Probiotics: If you have been given an antibiotic, you may want to also take a probiotic pill or eat yogurt with live cultures. Probiotics have "good bacteria " to help your intestines stay healthy. Studies have shown that probiotics help prevent diarrhea and other intestine problems (including C. diff infection) when you take antibiotics. You can buy these without a prescription in the pharmacy section of the store. If you were given a prescription for medicine here today, be sure toread all of the information (including the package insert) that comes with your prescription. This will include important information about the medicine, its side effects, and any warnings that you need to know about. The pharmacist who fills the prescription can provide more information and answer questions you may have about the medicine. If you have questions or concerns that the pharmacist cannot address, please call or return to the Emergency Department. Remember that you can always come back to the Emergency Department if you are not able to see your regular provider in the amount of time listed above, if you get any new symptoms, or if there is anything that worries you. - Problem List & Annotations (1) UTI (urinary tract infection) SNOMED Code(s): 89854065 Code(s): N39.0 - URINARY TRACT INFECTION, SITE NOT SPECIFIED Status: Acute Priority: High Current Visit: Yes Qualifiers: Urinary tract infection type: acute pyelonephritis Qualified Code(s): N10 - Acute pyelonephritis (2) Confusion associated with infection SNOMED Code(s): 071481553 Code(s): R41.0 - DISORIENTATION, UNSPECIFIED; B99.9 - UNSPECIFIED INFECTIOUS DISEASE Status: Acute Priority: Medium Current Visit: Yes - Problem List Review Problem List Initiated/Reviewed/Updated: Yes - My Orders Last 24 Hours: My Active Orders 02/16/19 19:01 Sodium Chloride 0.9% [Saline Flush] 10 ml FLUSH ASDIRECTED PRN 02/16/19 19:02 Blood Culture x2 Reflex Set [OM.PC] Urgent Peripheral IV Insertion Adult [OM.PC] Stat EKG 12 Lead [EK] Stat 02/16/19 19:03 EKG Documentation Completion [RC] ASDIRECTED Peripheral IV Care [RC] . DIRECTED 02/16/19 19:10 CULTURE BLOOD [BC] Urgent 02/16/19 19:21 Urinary Catheter Assessment [RC] ASDIRECTED 02/16/19 19:25 CULTURE BLOOD [BC] Urgent 02/16/19 19:30 Gong Catheter Insertion [Insert Urinary Catheter] [OM.PC] Q24H 02/16/19 19:33 CULTURE URINE [RM] Stat 02/16/19 21:00 Sodium Chloride 0.9% [Normal Saline] 1,000 ml IV ASDIRECTED - Assessment/Plan Last 24 Hours: My Active Orders 02/16/19 19:01 Sodium Chloride 0.9% [Saline Flush] 10 ml FLUSH ASDIRECTED PRN 02/16/19 19:02 Blood Culture x2 Reflex Set [OM.PC] Urgent Peripheral IV Insertion Adult [OM.PC] Stat EKG 12 Lead [EK] Stat 02/16/19 19:03 EKG Documentation Completion [RC] ASDIRECTED Peripheral IV Care [RC] . DIRECTED 02/16/19 19:10 CULTURE BLOOD [BC] Urgent 02/16/19 19:21 Urinary Catheter Assessment [RC] ASDIRECTED 02/16/19 19:25 CULTURE BLOOD [BC] Urgent 02/16/19 19:30 Gong Catheter Insertion [Insert Urinary Catheter] [OM.PC] Q24H 02/16/19 19:33 CULTURE URINE [RM] Stat 02/16/19 21:00 Sodium Chloride 0.9% [Normal Saline] 1,000 ml IV ASDIRECTED
[2019-02-16] MEDS: Sodium Chloride 0.9% 10 ML Syringe FLUSH PRN ×2 (19:23→21:21)
[2019-02-16] MEDS ORDERED: cefTRIAXone 1 GM in Sodium Chloride 0.9% 50 ML IV ONE (20:34)
--- NOTE | 2019-02-16 20:34 | CRLCR ---
INDICATION: Vomiting and confusion. TECHNIQUE: Flat and upright. COMPARISON: None. FINDINGS: Bowel gas pattern within normal limits. No free air. Eggshell calcifications projected over the lateral mid right abdomen, significance doubtful. IMPRESSION : Essentially negative abdomen. Dictated by Rahat Juarez MD @ Feb 16 2019 8:29PM Signed by Dr. Rahat Juarez @ Feb 16 2019 8:33PM
--- NOTE | 2019-02-16 20:36 | CRLCT ---
INDICATION: 83-year-old female. Vomiting, acute confusion. TECHNIQUE: CT Head without i.v. contrast. Study limited due to patient motion artifact. Multiple scans obtained per technologist. COMPARISON: Comparison head CT dated 02/14/2018. FINDINGS: CSF spaces: Within normal limits for age. Brain parenchyma: Moderate diffuse cortical atrophy is noted. There are low attenuation white matter changes, likely due to chronic microvascular disease. The brain parenchyma is normal in appearance with preservation of the moore-white matter junction. No sign of mass, hemorrhage, or midline shift seen. Skull base and calvarium: The visualized paranasal sinuses are well aerated. The mastoid air cells are clear. The visualized orbits are grossly unremarkable. No skull fractures are seen. IMPRESSION: 1. Technically limited study due to patient motion artifact. Age-related atrophy and chronic microvascular disease. No acute intracranial abnormality. No hemorrhage or mass effect. Dictated by Mohinder Calderón MD @ 02/16/2019 8:34:38 PM Please note that all CT scans at this facility use dose modulation, iterative reconstruction, and/or weight-based dosing when appropriate to reduce radiation dose to as low as reasonably achievable. Dictated by: Mohinder Calderón MD @ 02/16/2019 20:34:43 (Electronically Signed)
[2019-02-16] MEDS ORDERED: LORazepam 2 MG/ML SDV IVPUSH ONE (20:53)
[2019-02-16] MEDS ORDERED: Sodium Chloride 0.9% 1,000 ML IV SCH (21:00)
[2019-02-16 22:58] VITALS: BP 110/53
== END 2019-02-16 23:09 | disposition home or self-care (01) ==
LOC: JP.ED 18:26
DX: N39.0 Urinary tract infection, site not specified (principal); I10 Essential (primary) hypertension; Z86.73 Personal history of transient ischemic attack (TIA), and cerebral infarction without residual deficits; Z87.891 Personal history of nicotine dependence; Z79.899 Other long term (current) drug therapy; Z88.2 Allergy status to sulfonamides
CPT/HCPCS: 36415; 51702; 70450; 74022; 80053; 81001; 83605; 83690; 84484; 85025; 87040; 87086; 87088; 87186; 93005; 96361; 96365; 96375; 99285; J0696; J2060; J2765; J7030; J7050

== ENCOUNTER 2019-07-09 17:10 | Inpatient (IN) | payer MEDICARE, BC ==
--- NOTE | 2019-07-09 17:19 | EDM.PDOC ---
ED HPI GENERAL MEDICAL PROBLEM - General Chief Complaint: Lower Extremity Injury/Pain Stated Complaint: FELL Time Seen by Provider: 07/09/19 17:10 Source of Information: Reports: Patient, EMS, Old Records History Limitations: Reports: No Limitations - History of Present Illness INITIAL COMMENTS - FREE TEXT/NARRATIVE: 84 yo female from [facility] fell injuring her R hip. EMS transported after administering fentanyl 100 mcg IV. Externally rotated R hip noted. No other injuries. 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) (Fentanyl 100 mcg IV) - Related Data Allergies Allergy/AdvReac Type Severity Reaction Status Date / Time Sulfa (Sulfonamide Allergy Swelling Verified 07/09/19 17:46 Antibiotics) Home Meds: Home Meds Verapamil HCl [Calan Sr] 180 mg PO DAILY 08/29/16 [History] Potassium Chloride 10 meq PO DAILY 10/03/18 [History] Losartan/Hydrochlorothiazide [Losartan-HCTZ 50-12.5 MG] 1 tab PO DAILY 10/11/18 [History] Acetaminophen [Tylenol] 650 mg PO Q4H PRN tablet 10/15/18 [Rx] Docusate Sodium [Colace] 100 mg PO DAILY cap 10/15/18 [Rx] Cyanocobalamin (Vitamin B12) [Vitamin B12] 1 tab PO DAILY 07/09/19 [History] Ondansetron HCl [Ondansetron] 1 tab PO Q4HR PRN 07/09/19 [History] Pramipexole [Mirapex] 1 tab PO BID 07/09/19 [History] Past Medical History HEENT History: Reports: Impaired Vision Cardiovascular History: Reports: Hypertension Other Cardiovascular History: congenital septal defect-repaired Gastrointestinal History: Reports: Chronic Constipation, Chronic Diarrhea, Other (See Below) Other Gastrointestinal History: hx of diarrhea 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: Musculoskeletal History: Reports: Osteoporosis, RA Neurological History: Reports: CVA, TIA Psychiatric History: Reports: Dementia Endocrine/Metabolic History: Reports: Osteoporosis - Infectious Disease History Infectious Disease History: Reports: Chicken Pox - Past Surgical History Cardiovascular Surgical History: Reports: Percutaneous Transluminal Angioplasty GI Surgical History: Reports: Appendectomy, Colon, Colonoscopy Musculoskeletal Surgical History: Reports: Hip Replacement Social & Family History - Family History Family Medical History: Noncontributory - Caffeine Use Caffeine Use: Reports: Coffee Review of Systems - Review of Systems Review Of Systems: ROS reveals no pertinent complaints other than HPI. Constitutional: Reports: No Symptoms Musculoskeletal: Reports: Joint Pain (R hip) Neurological: Reports: No Symptoms ED EXAM, GENERAL - Physical Exam Exam: See Below Exam Limited By: No Limitations General Appearance: Alert, WD/WN, No Apparent Distress Eye Exam: Bilateral Eye: Normal Inspection Ears: Normal External Exam, Normal Canal, Hearing Grossly Normal Ear Exam: Bilateral Ear: Auricle Normal, Canal Normal Nose: Normal Inspection, No Blood Throat/Mouth: Normal Inspection, Normal Lips, Normal Oropharynx, Normal Voice, No Airway Compromise Head: Atraumatic, Normocephalic Neck: Normal Inspection Respiratory/Chest: No Respiratory Distress, Lungs Clear, Normal Breath Sounds, No Accessory Muscle Use Cardiovascular: Regular Rate, Rhythm, No Edema GI/Abdominal: Soft, Non-Tender Extremities: Limited Range of Motion, Other (R leg shortened and externally rotated.) Neurological: Alert, Oriented, CN II-XII Intact, Normal Cognition, No Motor/ Sensory Deficits Psychiatric: Normal Affect, Normal Mood Skin Exam: Warm, Dry, Intact, Normal Color, No Rash Course - Vital Signs Text/Narrative:: Dr. Molina called @ 1804h, to see in ER. Dr. Donovan called @ 1748h, asks that the hospitalist admit and he will do surgery in the morning. Last Recorded V/S: Last Vital Signs Temp 36.0 C 07/09/19 17:35 Pulse 80 07/09/19 17:35 Resp 18 07/09/19 17:35 BP 175/79 H 07/09/19 17:35 Pulse Ox 95 07/09/19 17:35 - Orders/Labs/Meds Orders: Active Orders 24 hr Category Date Time Status Gong Catheter Insertion [Insert Urinary Catheter] [OM. Care 07/09/19 18:00 Ordered PC] Q24H Urinary Catheter Assessment [RC] ASDIRECTED Care 07/09/19 17:57 Active Chest 1V Frontal [CR] Stat Exams 07/09/19 17:17 Taken Hip Min 2V or 3V Rt [CR] Stat Exams 07/09/19 17:13 Taken BASIC METABOLIC PANEL,BMP [CHEM] Stat Lab 07/09/19 17:57 Ordered CBC W/O DIFF,HEMOGRAM [HEME] Stat Lab 07/09/19 17:57 Ordered UA W/MICROSCOPIC [URIN] Stat Lab 07/09/19 17:57 Ordered - Radiology Interpretation Free Text/Narrative:: R hip X-ray- Departure - Departure Time of Disposition: 18:20 Disposition: Admitted As Inpatient 65 Condition: Fair Clinical Impression: Intertrochanteric fracture of right hip Qualifiers: Encounter type: initial encounter Fracture type: closed Fracture alignment: nondisplaced Qualified Code(s): S72.144A - Nondisplaced intertrochanteric fracture of right femur, initial encounter for closed fracture - Discharge Information *PRESCRIPTION DRUG MONITORING PROGRAM REVIEWED*: No *COPY OF PRESCRIPTION DRUG MONITORING REPORT IN PATIENT MARIA DEL CARMEN: No Referrals: Marv Molina Sr, MD [Primary Care Provider] - Forms: ED Department Discharge - My Orders Last 24 Hours: My Active Orders 07/09/19 17:13 Hip Min 2V or 3V Rt [CR] Stat 07/09/19 17:17 Chest 1V Frontal [CR] Stat 07/09/19 17:57 Urinary Catheter Assessment [RC] ASDIRECTED BASIC METABOLIC PANEL,BMP [CHEM] Stat CBC W/O DIFF,HEMOGRAM [HEME] Stat UA W/MICROSCOPIC [URIN] Stat 07/09/19 18:00 Gong Catheter Insertion [Insert Urinary Catheter] [OM.PC] Q24H - Assessment/Plan Last 24 Hours: My Active Orders 07/09/19 17:13 Hip Min 2V or 3V Rt [CR] Stat 07/09/19 17:17 Chest 1V Frontal [CR] Stat 07/09/19 17:57 Urinary Catheter Assessment [RC] ASDIRECTED BASIC METABOLIC PANEL,BMP [CHEM] Stat CBC W/O DIFF,HEMOGRAM [HEME] Stat UA W/MICROSCOPIC [URIN] Stat 07/09/19 18:00 Gong Catheter Insertion [Insert Urinary Catheter] [OM.PC] Q24H
--- NOTE | 2019-07-09 18:06 | CRLCR ---
Indication: Follow-up. Technique: Two views of the right hip were obtained. Comparison: October 11, 2018. Findings: An intertrochanteric right femoral fracture is identified. The humeral head is seated within the acetabulum. Extensive vascular calcifications are identified. Impression: Proximal right femoral fracture Dictated by Swapna Alejandro MD @ Jul 09 2019 6:03PM Signed by Dr. Swapna Alejandro @ Jul 09 2019 6:04PM
--- NOTE | 2019-07-09 18:08 | CRLCR ---
Indication: Hip fracture. Technique: Single AP portable view of the chest was obtained. Comparison: May 13, 2018. Findings: The heart is normal in size. The lungs are clear. No infiltrate, pleural effusion, or pneumothorax identified. Impression: No acute cardiopulmonary process. Dictated by Swapna Alejandro MD @ Jul 09 2019 6:06PM Signed by Dr. Swapna Alejandro @ Jul 09 2019 6:07PM
--- NOTE | 2019-07-09 19:14 | PCM.HP.2 ---
H&P History of Present Illness - General Date of Service: 07/09/19 Source of Information: Patient History Limitations: Reports: No Limitations - History of Present Illness Initial Comments - Free Text/Narative: Fell while walking this afternoon and had pain in the right hip. X-ray was done and was reported as a right intertrochanteric fracture of the right hip. She is being admitted for surger in the morning. Onset of Symptoms: Reports: Today Location: Reports: Other (Right hip pain) Severity: Moderate - Related Data Allergies/Adverse Reactions: Allergies Allergy/AdvReac Type Severity Reaction Status Date / Time Sulfa (Sulfonamide Allergy Swelling Verified 07/09/19 17:46 Antibiotics) Home Medications: Home Meds Verapamil HCl [Calan Sr] 180 mg PO DAILY 08/29/16 [History] Potassium Chloride 10 meq PO DAILY 10/03/18 [History] Losartan/Hydrochlorothiazide [Losartan-HCTZ 50-12.5 MG] 1 tab PO DAILY 10/11/18 [History] Acetaminophen [Tylenol] 650 mg PO Q4H PRN tablet 10/15/18 [Rx] Docusate Sodium [Colace] 100 mg PO DAILY cap 10/15/18 [Rx] Cyanocobalamin (Vitamin B12) [Vitamin B12] 1 tab PO DAILY 07/09/19 [History] Ondansetron HCl [Ondansetron] 1 tab PO Q4HR PRN 07/09/19 [History] Pramipexole [Mirapex] 1 tab PO BID 07/09/19 [History] Past Medical History HEENT History: Reports: Impaired Vision Cardiovascular History: Reports: Hypertension Other Cardiovascular History: congenital septal defect-repaired Gastrointestinal History: Reports: Chronic Constipation, Chronic Diarrhea, Other (See Below) Other Gastrointestinal History: hx of diarrhea 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: Musculoskeletal History: Reports: Osteoporosis, RA Neurological History: Reports: CVA, TIA Psychiatric History: Reports: Dementia Endocrine/Metabolic History: Reports: Osteoporosis Oncologic (Cancer) History: Reports: Leukemia Other Oncologic History: acute myoblastic leukemia - Infectious Disease History Infectious Disease History: Reports: Chicken Pox - Past Surgical History Cardiovascular Surgical History: Reports: Percutaneous Transluminal Angioplasty GI Surgical History: Reports: Appendectomy, Colon, Colonoscopy Musculoskeletal Surgical History: Reports: Hip Replacement Social & Family History - Family History Family Medical History: Noncontributory - Tobacco Use Smoking Status *Q: Former Smoker Years of Tobacco use: 45 Packs/Tins Daily: 1 Used Tobacco, but Quit: Yes Month/Year Tobacco Last Used: - Caffeine Use Caffeine Use: Reports: Coffee - Recreational Drug Use Recreational Drug Use: No H&P Review of Systems - Review of Systems: Review Of Systems: See Below General: Reports: Weakness HEENT: Reports: No Symptoms Pulmonary: Reports: No Symptoms Cardiovascular: Reports: No Symptoms Gastrointestinal: Reports: No Symptoms Genitourinary: Reports: No Symptoms Musculoskeletal: Reports: Leg Pain Skin: Reports: No Symptoms Psychiatric: Reports: No Symptoms Neurological: Reports: No Symptoms Hematologic/Lymphatic: Reports: Anemia Immunologic: Reports: No Symptoms Exam - Exam Exam: See Below - Vital Signs Vital Signs: Last Vital Signs Temp 96.8 F 07/09/19 17:35 Pulse 80 07/09/19 17:35 Resp 18 07/09/19 17:35 BP 175/79 H 07/09/19 17:35 Pulse Ox 95 07/09/19 17:35 Weight: 140 lb - Exam General: Alert, Oriented, 4 HEENT: PERRLA Neck: Supple, Trachea Midline, 2 Lungs: Clear to Auscultation, Normal Respiratory Effort Cardiovascular: Regular Rate, Regular Rhythm GI/Abdominal Exam: Normal Bowel Sounds, Soft, Non-Tender, No Organomegaly, No Distention, No Abnormal Bruit, No Mass, Pelvis Stable Back Exam: Normal Inspection (Right hip pain.), Full Range of Motion, NT Peripheral Pulses: 1+: Radial (L), Radial (R) Skin: Warm, Dry, Intact Psychiatric: Alert, Normal Affect, Normal Mood - Patient Data Lab Results Last 24 hrs: Laboratory Results - last 24 hr 07/09/19 07/09/19 Range/Units 18:08 18:08 WBC 11.0 (4.5-11.0) K/uL RBC 3.75 (3.30-5.50) M/uL Hgb 11.5 L (12.0-15.0) g/dL Hct 36.3 (36.0-48.0) % MCV 97 (80-98) fL MCH 31 (27-31) pg MCHC 32 (32-36) % Plt Count 308 (150-400) K/uL Sodium 139 L (140-148) mmol/L Potassium 3.1 L (3.6-5.2) mmol/L Chloride 103 (100-108) mmol/L Carbon Dioxide 26 (21-32) mmol/L Anion Gap 13.1 (5.0-14.0) mmol/L BUN 22 H (7-18) mg/dL Creatinine 0.8 (0.6-1.0) mg/dL Est Cr Clr Drug Dosing TNP Estimated GFR (MDRD) > 60 (>60) Glucose 128 H (74-106) mg/dL Calcium 9.2 (8.5-10.1) mg/dL Result Diagrams: 07/09/19 18:08 07/09/19 18:08 Problem List Initiated/Reviewed/Updated: Yes Orders Last 24hrs: Active Orders 24 hr Category Date Time Status Gong Catheter Insertion [Insert Urinary Catheter] [OM. Care 07/09/19 18:00 Ordered PC] Q24H Urinary Catheter Assessment [RC] ASDIRECTED Care 07/09/19 17:57 Active UA W/MICROSCOPIC [URIN] Stat Lab 07/09/19 18:58 Ordered Assessment/Plan Comment:: Assessment/Plan: #1. Right Hip intratrochanteric fracture. Hip replacement pending tomorrow by Dr. Marv Ortez. #2. HTN: Will continue with Losartan/HCTZ 50/12.5 daily. and Verapamil BP now 178/79 #3. Hx. RA #4. HLD: Diet controlled #5. ARF in the past. presently eGFR>60 @#6. Osteoarthritis #7. Hx of Leukemia: Hb 11.5 PLT 308,000 #8. Hx. of TIA @#9. Hx. RLS: Continue with Pramipexole bid PO. - Mortality Measure Prognosis:: Good
[2019-07-09] MEDS ORDERED: Acetaminophen 325 MG Tab PO PRN (19:29)
[2019-07-09] MEDS ORDERED: Sodium Chloride 0.9% 10 ML Syringe FLUSH PRN (19:59)
[2019-07-09] MEDS ORDERED: Ondansetron 4 MG Tab.DIS PO PRN (20:00)
[2019-07-09] MEDS ORDERED: Potassium Chloride Riders 40 MEQ in Premix Bag 1 BAG IV ONE (20:30)
[2019-07-09] MEDS: Acetaminophen/HYDROcodone 325-5 MG Tab PO PRN (20:43)
[2019-07-09] MEDS ORDERED: Lidocaine 1% PF 2 ML SDV IV SCH (21:30)
[2019-07-09] MEDS: Verapamil 180 MG Tab.ER PO SCH (21:34)
[2019-07-09] MEDS: Pramipexole 0.25 MG Tab PO SCH (21:34)
[2019-07-09] MEDS: Potassium Chloride 20 MEQ in Premix Bag 1 BAG IV SCH (21:35)
[2019-07-10] MEDS ORDERED: Lidocaine 1% 50 ML MDV INJECT ONE (00:11)
[2019-07-10] MEDS: Potassium Chloride 20 MEQ in Premix Bag 1 BAG IV SCH (00:54)
[2019-07-10] MEDS: Acetaminophen/HYDROcodone 325-5 MG Tab PO PRN ×3 (06:28→21:15)
[2019-07-10] MEDS ORDERED: fentaNYL 100 MCG/2 ML SDV ONE (08:32)
[2019-07-10] MEDS ORDERED: Losartan 50 MG Tab PO SCH (09:00)
[2019-07-10] MEDS ORDERED: Propofol 200 MG/20 ML SDV ONE (09:16)
[2019-07-10] MEDS ORDERED: Midazolam 1 MG/ML 2 ML SDV ONE (09:16)
[2019-07-10] MEDS ORDERED: Ampicillin 1 GM in Sodium Chloride 0.9% 50 ML IV ONE (09:30)
[2019-07-10] MEDS: Morphine 2 MG/ML Syringe IVPUSH PRN ×2 (09:40→12:48)
[2019-07-10] MEDS ORDERED: Bupivacaine 0.5%/EPINEPHrine 1:200,000 50 ML MDV ONE (09:51)
[2019-07-10] MEDS: Losartan 50 MG Tab PO SCH (10:19)
[2019-07-10] MEDS: Docusate Sodium 100 MG Cap PO SCH (10:19)
[2019-07-10] MEDS: Verapamil 180 MG Tab.ER PO SCH (10:19)
[2019-07-10] MEDS: Cyanocobalamin (Vitamin B12) 1,000 MCG Tab PO SCH (10:20)
[2019-07-10] MEDS: Potassium Chloride 10 MEQ Cap.ER PO SCH (10:20)
[2019-07-10] MEDS: Pramipexole 0.25 MG Tab PO SCH ×2 (10:20→21:04)
[2019-07-10] MEDS: Hydrochlorothiazide 12.5 MG Cap PO SCH (10:20)
[2019-07-10] MEDS ORDERED: Bupivacaine 0.5%/EPINEPHrine 1:200,000 30 ML SDV INJECT ONE (11:00)
[2019-07-10] MEDS ORDERED: ceFAZolin 2 GM in Premix Bag 1 BAG IV ONE (11:00)
[2019-07-10] MEDS: Sodium Chloride 0.9% 1,000 ML IV SCH ×2 (13:56→19:31)
--- NOTE | 2019-07-10 17:41 | PCM.PN ---
- General Info Date of Service: 07/10/19 Admission Dx/Problem (Free Text): Saw prior to surgery and was stable for surgery now has been done today. Functional Status: Reports: Pain Controlled - Review of Systems General: Reports: Weakness HEENT: Reports: No Symptoms Pulmonary: Reports: No Symptoms Cardiovascular: Reports: No Symptoms Gastrointestinal: Reports: No Symptoms Genitourinary: Reports: Frequency Musculoskeletal: Reports: No Symptoms Skin: Reports: No Symptoms Neurological: Reports: No Symptoms Psychiatric: Reports: No Symptoms - Patient Data Vitals - Most Recent: Last Vital Signs Temp 97.4 F 07/10/19 17:00 Pulse 82 07/10/19 17:00 Resp 16 07/10/19 17:00 BP 143/53 H 07/10/19 17:00 Pulse Ox 95 07/10/19 17:00 Weight - Most Recent: 149 lb 9.585 oz I&O - Last 24 Hours: Intake & Output 07/10/19 07/10/19 07/10/19 06:59 14:59 22:59 Intake Total 408 Output Total 300 150 275 Balance -300 -150 133 Lab Results Last 24 Hours: Laboratory Results - last 24 hr 07/09/19 07/09/19 07/09/19 Range/Units 18:08 18:08 18:58 WBC 11.0 (4.5-11.0) K/uL RBC 3.75 (3.30-5.50) M/uL Hgb 11.5 L (12.0-15.0) g/dL Hct 36.3 (36.0-48.0) % MCV 97 (80-98) fL MCH 31 (27-31) pg MCHC 32 (32-36) % Plt Count 308 (150-400) K/uL Neut % (Auto) (36-66) % Lymph % (Auto) (24-44) % [place] % (Auto) (2-6) % Eos % (Auto) (2-4) % Baso % (Auto) (0-1) % Sodium 139 L (140-148) mmol/L Potassium 3.1 L (3.6-5.2) mmol/L Chloride 103 (100-108) mmol/L Carbon Dioxide 26 (21-32) mmol/L Anion Gap 13.1 (5.0-14.0) mmol/L BUN 22 H (7-18) mg/dL Creatinine 0.8 (0.6-1.0) mg/dL Est Cr Clr Drug Dosing TNP Estimated GFR (MDRD) > 60 (>60) Glucose 128 H (74-106) mg/dL Calcium 9.2 (8.5-10.1) mg/dL Total Bilirubin (0.2-1.0) mg/dL AST (15-37) U/L ALT (12-78) U/L Alkaline Phosphatase (46-116) U/L Total Protein (6.4-8.2) g/dL Albumin (3.4-5.0) g/dL Globulin (2.3-3.5) g/dL Albumin/Globulin Ratio (1.2-2.2) Urine Color Yellow (YELLOW) Urine Appearance Cloudy A (CLEAR) Urine pH 6.0 (5.0-8.0) Ur Specific Echo 1.020 (1.008-1.030) Urine Protein Negative (NEGATIVE) mg/dL Urine Glucose (UA) Negative (NEGATIVE) mg/dL Urine Ketones Negative (NEGATIVE) mg/dL Urine Occult Blood Trace-intact H (NEGATIVE) Urine Nitrite Positive H (NEGATIVE) Urine Bilirubin Negative (NEGATIVE) Urine Urobilinogen 0.2 (0.2-1.0) EU/dL Ur Leukocyte Esterase Moderate H (NEGATIVE) Urine RBC 5-10 H (0-5) Urine WBC Packed H (0-5) Ur Epithelial Cells Few Amorphous Sediment Few Urine Bacteria Many Urine Mucus Few Blood Type Gel Antibody Screen 07/10/19 07/10/19 07/10/19 Range/Units 05:06 05:06 09:10 WBC 10.8 (4.5-11.0) K/uL RBC 3.42 (3.30-5.50) M/uL Hgb 10.6 L (12.0-15.0) g/dL Hct 32.9 L (36.0-48.0) % MCV 96 (80-98) fL MCH 31 (27-31) pg MCHC 32 (32-36) % Plt Count 276 (150-400) K/uL Neut % (Auto) 85 H (36-66) % Lymph % (Auto) 6 L (24-44) % [place] % (Auto) 9 H (2-6) % Eos % (Auto) 0 L (2-4) % Baso % (Auto) 0 (0-1) % Sodium 139 L (140-148) mmol/L Potassium 3.6 (3.6-5.2) mmol/L Chloride 103 (100-108) mmol/L Carbon Dioxide 28 (21-32) mmol/L Anion Gap 11.6 (5.0-14.0) mmol/L BUN 19 H (7-18) mg/dL Creatinine 0.7 (0.6-1.0) mg/dL Est Cr Clr Drug Dosing 52.87 Estimated GFR (MDRD) > 60 (>60) Glucose 111 H (74-106) mg/dL Calcium 8.9 (8.5-10.1) mg/dL Total Bilirubin 0.4 D (0.2-1.0) mg/dL AST 18 (15-37) U/L ALT 17 (12-78) U/L Alkaline Phosphatase 80 (46-116) U/L Total Protein 5.7 L (6.4-8.2) g/dL Albumin 2.5 L (3.4-5.0) g/dL Globulin 3.2 (2.3-3.5) g/dL Albumin/Globulin Ratio 0.8 L (1.2-2.2) Urine Color (YELLOW) Urine Appearance (CLEAR) Urine pH (5.0-8.0) Ur Specific Echo (1.008-1.030) Urine Protein (NEGATIVE) mg/dL Urine Glucose (UA) (NEGATIVE) mg/dL Urine Ketones (NEGATIVE) mg/dL Urine Occult Blood (NEGATIVE) Urine Nitrite (NEGATIVE) Urine Bilirubin (NEGATIVE) Urine Urobilinogen (0.2-1.0) EU/dL Ur Leukocyte Esterase (NEGATIVE) Urine RBC (0-5) Urine WBC (0-5) Ur Epithelial Cells Amorphous Sediment Urine Bacteria Urine Mucus Blood Type O POSITIVE Gel Antibody Screen Negative Med Orders - Current: Current Medications Acetaminophen (Tylenol) 650 mg PO Q4H PRN PRN Reason: Pain Hydrocodone Bitart/Acetaminophen (Goodwin 325-5 Mg) 1 tab PO Q4H PRN PRN Reason: Pain (moderate 4-6) Last Admin: 07/10/19 17:19 Dose: 1 tab Amoxicillin (Amoxil) 500 mg PO Q8H [place] Cyanocobalamin (Vitamin B12) 1,000 mcg PO DAILY [facility] Last Admin: 07/10/19 10:20 Dose: Not Given Docusate Sodium (Colace) 100 mg PO DAILY [facility] Last Admin: 07/10/19 10:19 Dose: Not Given Enoxaparin Sodium (Lovenox) 30 mg SUBCUT Q24H [facility] Hydrochlorothiazide (Hydrochlorothiazide) 12.5 mg PO DAILY [facility] Last Admin: 07/10/19 10:20 Dose: Not Given Sodium Chloride (Normal Saline) 1,000 mls @ 100 mls/hr IV ASDIRECTED [facility] Last Admin: 07/10/19 13:56 Dose: 100 mls/hr Influenza Virus Vaccine (Fluzone High-Dose Syringe) 1 mcg IM ONETIME ONE Stop: 07/12/19 09:01 Lidocaine HCl (Xylocaine-Mpf 1%) 2 ml IV ONETIME [facility] Stop: 07/10/19 21:31 Last Admin: 07/09/19 21:36 Dose: 2 ml Losartan Potassium (Cozaar) 50 mg PO DAILY [facility] Last Admin: 07/10/19 10:19 Dose: Not Given Magnesium Hydroxide (Milk Of Magnesia) 30 ml PO Q6H PRN PRN Reason: Constipation Morphine Sulfate (Morphine) 2 mg IVPUSH Q2H PRN PRN Reason: Pain (moderate 4-6) Last Admin: 07/10/19 12:48 Dose: 2 mg Ondansetron HCl (Zofran Odt) 4 mg PO Q4H PRN PRN Reason: NAUSEA Oxycodone/Acetaminophen (Percocet 325-5 Mg) 1 - 2 tab PO Q4H PRN PRN Reason: Pain (severe 7-10) Potassium Chloride (Potassium Chloride) 10 meq PO DAILY [facility] Last Admin: 07/10/19 10:20 Dose: Not Given Pramipexole Dihydrochloride (Mirapex) 0.125 mg PO BID [facility] Last Admin: 07/10/19 10:20 Dose: Not Given Sodium Chloride (Saline Flush) 10 ml FLUSH ASDIRECTED PRN PRN Reason: Keep Vein Open Verapamil HCl (Calan Sr) 180 mg PO DAILY [facility] Last Admin: 07/10/19 10:19 Dose: Not Given Discontinued Medications Bupivacaine HCl/Epinephrine Bitart (Marcaine 0.5%/Epinephrine 1:200,000) Confirm Administered Dose 50 ml .ROUTE .STK-MED ONE Stop: 07/10/19 09:52 Fentanyl (Sublimaze) Confirm Administered Dose 100 mcg .ROUTE .STK-MED ONE Stop: 07/10/19 08:33 Potassium Chloride 40 meq/ (Premix) 100 mls @ 25 mls/hr IV ONETIME ONE Stop: 07/10/19 00:29 Last Admin: 07/09/19 22:25 Dose: Not Given Potassium Chloride 20 meq/ (Premix) 100 mls @ 50 mls/hr IV Q2H [facility]ENRIQUE Stop: 07/10/19 01:59 Last Admin: 07/10/19 00:54 Dose: 50 mls/hr Cefazolin Sodium/Dextrose 2 gm (/ Premix) 50 mls @ 100 mls/hr IV ONETIME ONE Stop: 07/10/19 11:29 Last Admin: 07/10/19 11:20 Dose: 100 mls/hr Ampicillin Sodium 1 gm/ Sodium (Chloride) 50 mls @ 100 mls/hr IV ONETIME ONE Stop: 07/10/19 09:59 Last Admin: 07/10/19 09:41 Dose: 100 mls/hr Lidocaine HCl (Xylocaine 1%) 2 ml INJECT ONETIME ONE Stop: 07/10/19 00:12 Last Admin: 07/10/19 00:43 Dose: Not Given Lidocaine HCl (Xylocaine-Mpf 1%) 2 ml INJECT ONETIME STA Stop: 07/10/19 00:41 Last Admin: 07/10/19 00:54 Dose: 2 ml Losartan Potassium (Cozaar) 50 mg PO DAILY [facility] Midazolam HCl (Versed 1 Mg/Ml) Confirm Administered Dose 2 mg .ROUTE .STK-MED ONE Stop: 07/10/19 09:17 Propofol (Diprivan 20 Ml) Confirm Administered Dose 200 mg .ROUTE .STK-MED ONE Stop: 07/10/19 09:17 - Exam General: Alert, Oriented HEENT: Pupils Equal, Pupils Reactive, EOMI, Mucous Membr. Moist/[place] Neck: Supple Lungs: Clear to Auscultation, Normal Respiratory Effort Cardiovascular: Regular Rate, Regular Rhythm Back Exam: Normal Inspection, Full Range of Motion Extremities: Leg Pain Peripheral Pulses: 1+: Radial (L), Radial (R) Skin: Warm, Dry, Intact Neurological: No New Focal Deficit Psy/Mental Status: Alert, Normal Affect, Normal Mood - Problem List Review Problem List Initiated/Reviewed/Updated: Yes - My Orders Last 24 Hours: My Active Orders 07/09/19 19:29 Acetaminophen [Tylenol] 650 mg PO Q4H PRN 07/09/19 19:45 Verapamil [Calan SR] 180 mg PO DAILY 07/09/19 19:59 Sodium Chloride 0.9% [Saline Flush] 10 ml FLUSH ASDIRECTED PRN Peripheral IV Insertion Adult [OM.PC] Routine Resuscitation Status Routine EKG 12 Lead [EK] Routine 07/09/19 20:00 Patient Status [ADT] Routine Oxygen Therapy [RC] PRN VTE/DVT Education [RC] Per Unit Routine Vital Signs [RC] Q4H Ondansetron [Zofran ODT] 4 mg PO Q4H PRN 07/09/19 20:31 Acetaminophen/HYDROcodone [Goodwin 325-5 MG] 1 tab PO Q4H PRN 07/09/19 21:00 Pramipexole [Mirapex] 0.125 mg PO BID 07/09/19 21:30 Lidocaine 1% [Xylocaine-MPF 1%] 2 ml IV ONETIME 07/10/19 08:54 Antiembolic Devices [RC] .Routine Sequential Compression Device [OM.PC] Routine 07/10/19 09:00 Cyanocobalamin (Vitamin B12) [Vitamin B12] 1,000 mcg PO DAILY Docusate Sodium [Colace] 100 mg PO DAILY Losartan [Cozaar] 50 mg PO DAILY Potassium Chloride 10 meq PO DAILY Sodium Chloride 0.9% [Normal Saline] 1,000 ml IV ASDIRECTED hydroCHLOROthiazide 12.5 mg PO DAILY 07/10/19 09:29 Morphine 2 mg IVPUSH Q2H PRN 07/10/19 15:36 Influenza Vaccine Charge [RC] .DISCHARGE 07/10/19 17:30 CULTURE URINE [RM] Routine 07/10/19 20:00 Amoxicillin [Amoxil] 500 mg PO Q8H 07/10/19 Breakfast NPO After Midnight [Nothing per Oral After Midnight Diet] [DIET] 07/12/19 09:00 FLU Vacc [id number](65YR UP)/PF [Fluzone High-Dose Syringe] 1 mcg IM ONETIME ONE - Plan Plan:: Assessment/Plan: #1. Right Hip intratrochanteric fracture. Hip replacement completed. #2. HTN: Will continue with Losartan/HCTZ 50/12.5 daily. and Verapamil BP now 143/53 #3. Hx. RA #4. HLD: Diet controlled #5. ARF in the past. presently eGFR>60 @#6. Osteoarthritis #7. Hx of Leukemia: Hb 10.6, WBC 10.8 PLT 276,000 #8. Hx. of TIA #9. Hx. RLS: Continue with Pramipexole bid PO. #10. UTI: Culture is pending. Will start Amoxicillin until culture completed. Medically stable post op.
[2019-07-10] MEDS: Amoxicillin 500 MG Cap PO SCH (21:15)
[2019-07-11] MEDS: Acetaminophen/HYDROcodone 325-5 MG Tab PO PRN ×3 (01:38→22:02)
[2019-07-11] MEDS: Amoxicillin 500 MG Cap PO SCH ×3 (04:46→20:51)
[2019-07-11] MEDS: Sodium Chloride 0.9% 1,000 ML IV SCH (05:34)
[2019-07-11] MEDS: Acetaminophen/oxyCODONE 325-5 MG Tab PO PRN ×3 (05:38→13:36)
[2019-07-11] MEDS: Cyanocobalamin (Vitamin B12) 1,000 MCG Tab PO SCH (09:23)
[2019-07-11] MEDS: Docusate Sodium 100 MG Cap PO SCH (09:24)
[2019-07-11] MEDS: Losartan 50 MG Tab PO SCH (09:24)
[2019-07-11] MEDS: Pramipexole 0.25 MG Tab PO SCH ×2 (09:24→20:52)
[2019-07-11] MEDS: Verapamil 180 MG Tab.ER PO SCH (09:24)
[2019-07-11] MEDS: Potassium Chloride 10 MEQ Cap.ER PO SCH (09:24)
[2019-07-11] MEDS: Hydrochlorothiazide 12.5 MG Cap PO SCH (09:27)
[2019-07-11] MEDS: Enoxaparin 30 MG/0.3 ML Syringe SUBCUT SCH (12:43)
--- NOTE | 2019-07-11 14:06 | PCM.SURGPN ---
- General Info Date of Service: 07/11/19 POD#: 1 Post-Op Diagnosis: Intertrochanteric fracture right hip Functional Status: Reports: Tolerating Diet - Review of Systems General: Reports: No Symptoms HEENT: Reports: No Symptoms Pulmonary: Reports: No Symptoms Cardiovascular: Reports: No Symptoms Gastrointestinal: Reports: No Symptoms Musculoskeletal: Reports: Leg Pain Skin: Reports: No Symptoms Neurological: Reports: No Symptoms Psychiatric: Reports: No Symptoms - Patient Data Vitals - Most Recent: Last Vital Signs Temp 35.5 C 07/11/19 11:00 Pulse 93 07/11/19 11:00 Resp 18 07/11/19 11:00 BP 136/66 07/11/19 11:00 Pulse Ox 94 L 07/11/19 11:00 Weight - Most Recent: 67.857 kg I&O - Last 24 Hours: Intake & Output 07/10/19 07/11/19 07/11/19 22:59 06:59 14:59 Intake Total 468 1212 200 Output Total 275 450 200 Balance 193 762 0 Lab Results Last 24 Hrs: Laboratory Results - last 24 hr 07/11/19 07/11/19 Range/Units 03:48 12:54 WBC 9.5 (4.5-11.0) K/uL RBC 2.78 L (3.30-5.50) M/uL Hgb 8.5 L D (12.0-15.0) g/dL Hct 27.3 L (36.0-48.0) % MCV 98 (80-98) fL MCH 31 (27-31) pg MCHC 31 L (32-36) % Plt Count 200 (150-400) K/uL Percent Retic 0.8 (0.5-1.5) % [place]ito Results Last 24 Hrs: Microbiology 07/10/19 17:30 Urine Culture - Preliminary Urine, Clean Catch Med Orders - Current: Current Medications Acetaminophen (Tylenol) 650 mg PO Q4H PRN PRN Reason: Pain Hydrocodone Bitart/Acetaminophen ([place] 325-5 Mg) 1 tab PO Q4H PRN PRN Reason: Pain (moderate 4-6) Last Admin: 07/11/19 01:38 Dose: 1 tab Amoxicillin (Amoxil) 500 mg PO Q8H [facility] Last Admin: 07/11/19 12:43 Dose: 500 mg Cyanocobalamin (Vitamin B12) 1,000 mcg PO DAILY [facility] Last Admin: 07/11/19 09:23 Dose: 1,000 mcg Docusate Sodium (Colace) 100 mg PO DAILY [facility] Last Admin: 07/11/19 09:24 Dose: 100 mg Enoxaparin Sodium (Lovenox) 30 mg SUBCUT Q24H [facility] Last Admin: 07/11/19 12:43 Dose: 30 mg Hydrochlorothiazide (Hydrochlorothiazide) 12.5 mg PO DAILY [facility] Last Admin: 07/11/19 09:27 Dose: 12.5 mg Sodium Chloride (Normal Saline) 1,000 mls @ 100 mls/hr IV ASDIRECTED [facility] Last Admin: 07/11/19 05:34 Dose: 100 mls/hr Influenza Virus Vaccine (Fluzone High-Dose 2018- Syringe) 1 mcg IM ONETIME ONE Stop: 07/12/19 09:01 Losartan Potassium (Cozaar) 50 mg PO DAILY [facility] Last Admin: 07/11/19 09:24 Dose: 50 mg Magnesium Hydroxide (Milk Of Magnesia) 30 ml PO Q6H PRN PRN Reason: Constipation Morphine Sulfate (Morphine) 2 mg IVPUSH Q2H PRN PRN Reason: Pain (moderate 4-6) Last Admin: 07/10/19 12:48 Dose: 2 mg Ondansetron HCl (Zofran Odt) 4 mg PO Q4H PRN PRN Reason: NAUSEA Oxycodone/Acetaminophen (Percocet 325-5 Mg) 1 - 2 tab PO Q4H PRN PRN Reason: Pain (severe 7-10) Last Admin: 07/11/19 13:36 Dose: 2 tab Potassium Chloride (Potassium Chloride) 10 meq PO DAILY [facility] Last Admin: 07/11/19 09:24 Dose: 10 meq Pramipexole Dihydrochloride (Mirapex) 0.125 mg PO BID [facility] Last Admin: 07/11/19 09:24 Dose: 0.125 mg Sodium Chloride (Saline Flush) 10 ml FLUSH ASDIRECTED PRN PRN Reason: Keep Vein Open Verapamil HCl (Calan Sr) 180 mg PO DAILY [facility] Last Admin: 07/11/19 09:24 Dose: 180 mg Discontinued Medications Bupivacaine HCl/Epinephrine Bitart (Marcaine 0.5%/Epinephrine 1:200,000) Confirm Administered Dose 50 ml .ROUTE .STK-MED ONE Stop: 07/10/19 09:52 Fentanyl (Sublimaze) Confirm Administered Dose 100 mcg .ROUTE .STK-MED ONE Stop: 07/10/19 08:33 Potassium Chloride 40 meq/ (Premix) 100 mls @ 25 mls/hr IV ONETIME ONE Stop: 07/10/19 00:29 Last Admin: 07/09/19 22:25 Dose: Not Given Potassium Chloride 20 meq/ (Premix) 100 mls @ 50 mls/hr IV Q2H [facility] Stop: 07/10/19 01:59 Last Admin: 07/10/19 00:54 Dose: 50 mls/hr Cefazolin Sodium/Dextrose 2 gm (/ Premix) 50 mls @ 100 mls/hr IV ONETIME ONE Stop: 07/10/19 11:29 Last Admin: 07/10/19 11:20 Dose: 100 mls/hr Ampicillin Sodium 1 gm/ Sodium (Chloride) 50 mls @ 100 mls/hr IV ONETIME ONE Stop: 07/10/19 09:59 Last Admin: 07/10/19 09:41 Dose: 100 mls/hr Lidocaine HCl (Xylocaine-Mpf 1%) 2 ml IV ONETIME [facility] Stop: 07/10/19 21:31 Last Admin: 07/09/19 21:36 Dose: 2 ml Lidocaine HCl (Xylocaine 1%) 2 ml INJECT ONETIME ONE Stop: 07/10/19 00:12 Last Admin: 07/10/19 00:43 Dose: Not Given Lidocaine HCl (Xylocaine-Mpf 1%) 2 ml INJECT ONETIME STA Stop: 07/10/19 00:41 Last Admin: 07/10/19 00:54 Dose: 2 ml Losartan Potassium (Cozaar) 50 mg PO DAILY [facility] Midazolam HCl (Versed 1 Mg/Ml) Confirm Administered Dose 2 mg .ROUTE .STK-MED ONE Stop: 07/10/19 09:17 Propofol (Diprivan 20 Ml) Confirm Administered Dose 200 mg .ROUTE .STK-MED ONE Stop: 07/10/19 09:17 - Exam Wound/Incisions: Dressing Dry and Intact General: Alert, Oriented HEENT: Pupils Equal Neck: Supple Lungs: Clear to Auscultation, Normal Respiratory Effort Cardiovascular: Regular Rate, Regular Rhythm GI/Abdominal Exam: Normal Bowel Sounds, Soft, Non-Tender, No Organomegaly, No Distention, No Abnormal Bruit, No Mass, Pelvis Stable Extremities: Limited Range of Motion Skin: Warm, Dry, Intact Neurological: No New Focal Deficit Psy/Mental Status: Alert, Normal Affect, Normal Mood - Problem List & Annotations (1) Intertrochanteric fracture of right hip SNOMED Code(s): 511770680 Code(s): S72.141A - DISPLACED INTERTROCHANTERIC FRACTURE OF RIGHT FEMUR, INIT Status: Acute Current Visit: Yes Qualifiers: Encounter type: initial encounter Fracture type: closed Fracture alignment: displaced Qualified Code(s): S72.141A - Displaced intertrochanteric fracture of right femur, initial encounter for closed fracture (2) Postoperative anemia due to acute blood loss SNOMED Code(s): 59341139647048811 Code(s): D62 - ACUTE POSTHEMORRHAGIC ANEMIA Status: Acute Current Visit: Yes - Problem List Review Problem List Initiated/Reviewed/Updated: Yes - My Orders Last 24 Hours: Active Orders 24 hr Category Date Time Status Influenza Vaccine Charge [RC] .DISCHARGE Care 07/10/19 15:36 Active Regular Diet [DIET] Diet 07/10/19 Dinner Active CULTURE URINE [RM] Routine Lab 07/10/19 17:30 Results Amoxicillin [Amoxil] Med 07/10/19 20:00 Active 500 mg PO Q8H Enoxaparin [Lovenox] Med 07/11/19 13:00 Active 30 mg SUBCUT Q24H FLU Vacc [id number](65YR UP)/PF [Fluzone High-Dose 2019- Med 07/12/19 09:00 Once 20 Syringe] 1 mcg IM ONETIME ONE Medication Orders Acetaminophen (Tylenol) 650 mg PO Q4H PRN PRN Reason: Pain Hydrocodone Bitart/Acetaminophen ([place] 325-5 Mg) 1 tab PO Q4H PRN PRN Reason: Pain (moderate 4-6) Last Admin: 07/11/19 01:38 Dose: 1 tab Admin: 07/10/19 21:15 Dose: 1 tab Admin: 07/10/19 17:19 Dose: 1 tab Admin: 07/10/19 06:28 Dose: 1 tab Admin: 07/09/19 20:43 Dose: 1 tab Amoxicillin (Amoxil) 500 mg PO Q8H [facility] Last Admin: 07/11/19 12:43 Dose: 500 mg Admin: 07/11/19 04:46 Dose: 500 mg Admin: 07/10/19 21:15 Dose: 500 mg Cyanocobalamin (Vitamin B12) 1,000 mcg PO DAILY [facility] Last Admin: 07/11/19 09:23 Dose: 1,000 mcg Admin: 07/10/19 10:20 Dose: Not Given Docusate Sodium (Colace) 100 mg PO DAILY [facility] Last Admin: 07/11/19 09:24 Dose: 100 mg Admin: 07/10/19 10:19 Dose: Not Given Enoxaparin Sodium (Lovenox) 30 mg SUBCUT Q24H [facility] Last Admin: 07/11/19 12:43 Dose: 30 mg Hydrochlorothiazide (Hydrochlorothiazide) 12.5 mg PO DAILY [facility] Last Admin: 07/11/19 09:27 Dose: 12.5 mg Admin: 07/10/19 10:20 Dose: Not Given Sodium Chloride (Normal Saline) 1,000 mls @ 100 mls/hr IV ASDIRECTED [facility] Last Admin: 07/11/19 05:34 Dose: 100 mls/hr Infusion: 07/11/19 05:31 Dose: 100 mls/hr Admin: 07/10/19 19:31 Dose: 100 mls/hr Infusion: 07/10/19 19:31 Dose: 100 mls/hr Admin: 07/10/19 13:56 Dose: 100 mls/hr Influenza Virus Vaccine (Fluzone High-Dose 2019-20 Syringe) 1 mcg IM ONETIME ONE Stop: 07/12/19 09:01 Losartan Potassium (Cozaar) 50 mg PO DAILY [facility] Last Admin: 07/11/19 09:24 Dose: 50 mg Admin: 07/10/19 10:19 Dose: Not Given Magnesium Hydroxide (Milk Of Magnesia) 30 ml PO Q6H PRN PRN Reason: Constipation Morphine Sulfate (Morphine) 2 mg IVPUSH Q2H PRN PRN Reason: Pain (moderate 4-6) Last Admin: 07/10/19 12:48 Dose: 2 mg Admin: 07/10/19 09:40 Dose: 2 mg Ondansetron HCl (Zofran Odt) 4 mg PO Q4H PRN PRN Reason: NAUSEA Oxycodone/Acetaminophen (Percocet 325-5 Mg) 1 - 2 tab PO Q4H PRN PRN Reason: Pain (severe 7-10) Last Admin: 07/11/19 13:36 Dose: 2 tab Admin: 07/11/19 09:36 Dose: 2 tab Admin: 07/11/19 05:38 Dose: 2 tab Potassium Chloride (Potassium Chloride) 10 meq PO DAILY [facility] Last Admin: 07/11/19 09:24 Dose: 10 meq Admin: 07/10/19 10:20 Dose: Not Given Pramipexole Dihydrochloride (Mirapex) 0.125 mg PO BID [facility] Last Admin: 07/11/19 09:24 Dose: 0.125 mg Admin: 07/10/19 21:04 Dose: 0.125 mg Admin: 07/10/19 10:20 Dose: Not Given Admin: 07/09/19 21:34 Dose: 0.125 mg Sodium Chloride (Saline Flush) 10 ml FLUSH ASDIRECTED PRN PRN Reason: Keep Vein Open Verapamil HCl (Calan Sr) 180 mg PO DAILY [facility] Last Admin: 07/11/19 09:24 Dose: 180 mg Admin: 07/10/19 10:19 Dose: Not Given Admin: 07/09/19 21:34 Dose: 180 mg - Assessment Assessment (Free Text/Narrative):: Stable overnight, pain not well controlled, better today, H/H low, has not been up with PT yet - Plan Plan (Free Text/Narrative):: Watch H/H for now, transfuse if needed, IV to TKO, start PT/OT, SNF placement when stable
[2019-07-11] MEDS ORDERED: Sodium Chloride 0.9% 1,000 ML IV SCH (17:45)
[2019-07-11] MEDS: Magnesium Hydroxide 400 MG/5 ML Susp 30 ML Cup PO PRN (17:48)
--- NOTE | 2019-07-11 19:28 | PCM.HP.2 ---
H&P History of Present Illness - General Date of Service: 07/11/19 Admit Problem/Dx: Saw prior to surgery and was stable for surgery now has been done today. Source of Information: Patient History Limitations: Reports: No Limitations - History of Present Illness Initial Comments - Free Text/Narative: Ruby is stating that she feels good but still has pain in her hip from her recent surgery. Location: Reports: Lower Extremity, Right Right Hip Pain Score (Numeric/FACES): 4 - Related Data Allergies/Adverse Reactions: Allergies Allergy/AdvReac Type Severity Reaction Status Date / Time Sulfa (Sulfonamide Allergy Swelling Verified 07/10/19 02:16 Antibiotics) Home Medications: Home Meds Verapamil HCl [Calan Sr] 180 mg PO DAILY 08/29/16 [History] Potassium Chloride 10 meq PO DAILY 10/03/18 [History] Losartan/Hydrochlorothiazide [Losartan-HCTZ 50-12.5 MG] 1 tab PO DAILY 10/11/18 [History] Acetaminophen [Tylenol] 650 mg PO Q4H PRN tablet 10/15/18 [Rx] Docusate Sodium [Colace] 100 mg PO DAILY cap 10/15/18 [Rx] Cyanocobalamin (Vitamin B12) [Vitamin B12] 1 tab PO DAILY 07/09/19 [History] Ondansetron HCl [Ondansetron] 1 tab PO Q4HR PRN 07/09/19 [History] Pramipexole [Mirapex] 1 tab PO BID 07/09/19 [History] Past Medical History HEENT History: Reports: Impaired Vision Cardiovascular History: Reports: Hypertension Other Cardiovascular History: congenital septal defect-repaired Gastrointestinal History: Reports: Chronic Constipation, Chronic Diarrhea, Other (See Below) Other Gastrointestinal History: hx 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: Musculoskeletal History: Reports: Osteoporosis, RA, Other (See Below) Other Musculoskeletal History: bursitis Neurological History: Reports: TIA Psychiatric History: Reports: Dementia Other Psychiatric History: not diagnosed Endocrine/Metabolic History: Reports: Osteoporosis Oncologic (Cancer) History: Reports: Leukemia Other Oncologic History: acute myoblastic leukemia - Infectious Disease History Infectious Disease History: Reports: Chicken Pox - Past Surgical History HEENT Surgical History: Reports: Tonsillectomy Cardiovascular Surgical History: Reports: Percutaneous Transluminal Angioplasty GI Surgical History: Reports: Appendectomy, Colon, Colonoscopy Musculoskeletal Surgical History: Reports: Hip Replacement Other Musculoskeletal Surgeries/Procedures:: left hip replacement Social & Family History - Family History Family Medical History: Noncontributory - Tobacco Use Smoking Status *Q: Former Smoker Years of Tobacco use: 45 Packs/Tins Daily: 1 Used Tobacco, but Quit: Yes Month/Year Tobacco Last Used: 21 years ago Second Hand Smoke Exposure: No - Caffeine Use Caffeine Use: Reports: Coffee - Recreational Drug Use Recreational Drug Use: No H&P Review of Systems - Review of Systems: Review Of Systems: See Below General: Reports: Weakness HEENT: Reports: No Symptoms Pulmonary: Reports: No Symptoms Cardiovascular: Reports: No Symptoms Gastrointestinal: Reports: No Symptoms Genitourinary: Reports: No Symptoms Musculoskeletal: Reports: No Symptoms Skin: Reports: No Symptoms Psychiatric: Reports: No Symptoms Neurological: Reports: No Symptoms Exam - Exam Exam: See Below - Vital Signs Vital Signs: Last Vital Signs Temp 96.2 F 07/11/19 15:00 Pulse 85 07/11/19 15:00 Resp 18 07/11/19 15:00 BP 142/56 H 07/11/19 15:00 Pulse Ox 95 07/11/19 15:00 Weight: 149 lb 9.585 oz - Exam General: Alert, Oriented, 4 Lungs: Clear to Auscultation, Normal Respiratory Effort Cardiovascular: Regular Rate, Regular Rhythm GI/Abdominal Exam: Normal Bowel Sounds, Soft, Non-Tender, No Organomegaly, No Distention, No Abnormal Bruit, No Mass, Pelvis Stable - Patient Data Lab Results Last 24 hrs: Laboratory Results - last 24 hr 07/10/19 07/11/19 07/11/19 Range/Units 09:10 03:48 12:54 WBC 9.5 (4.5-11.0) K/uL RBC 2.78 L (3.30-5.50) M/uL Hgb 8.5 L D (12.0-15.0) g/dL Hct 27.3 L (36.0-48.0) % MCV 98 (80-98) fL MCH 31 (27-31) pg MCHC 31 L (32-36) % Plt Count 200 (150-400) K/uL Percent Retic 0.8 (0.5-1.5) % Crossmatch See Detail Result Diagrams: 07/11/19 03:48 07/10/19 05:06 [place]ito Results Last 24 hrs: Microbiology 07/10/19 17:30 Urine Culture - Preliminary Urine, Clean Catch Problem List Initiated/Reviewed/Updated: Yes Orders Last 24hrs: Active Orders 24 hr Category Date Time Status BASIC METABOLIC PANEL,BMP [CHEM] AM Lab 07/12/19 05:11 Ordered CBC WITH AUTO DIFF [HEME] AM Lab 07/12/19 05:11 Ordered PACKED CELLS [RED BLOOD CELLS LP] [BBK] Routine Lab 07/11/19 19:20 Ordered Amoxicillin [Amoxil] Med 07/10/19 20:00 Active 500 mg PO Q8H Enoxaparin [Lovenox] Med 07/11/19 13:00 Active 30 mg SUBCUT Q24H FLU Vacc [id number](65YR UP)/PF [Fluzone High-Dose 2019- Med 07/12/19 09:00 Once 20 Syringe] 1 mcg IM ONETIME ONE Sodium Chloride 0.9% [Normal Saline] 1,000 ml Med 07/11/19 17:45 Active IV ASDIRECTED Medication Orders Acetaminophen (Tylenol) 650 mg PO Q4H PRN PRN Reason: Pain Hydrocodone Bitart/Acetaminophen ([place] 325-5 Mg) 1 tab PO Q4H PRN PRN Reason: Pain (moderate 4-6) Last Admin: 07/11/19 17:47 Dose: 1 tab Admin: 07/11/19 01:38 Dose: 1 tab Admin: 07/10/19 21:15 Dose: 1 tab Admin: 07/10/19 17:19 Dose: 1 tab Admin: 07/10/19 06:28 Dose: 1 tab Admin: 07/09/19 20:43 Dose: 1 tab Amoxicillin (Amoxil) 500 mg PO Q8H [facility] Last Admin: 07/11/19 12:43 Dose: 500 mg Admin: 07/11/19 04:46 Dose: 500 mg Admin: 07/10/19 21:15 Dose: 500 mg Cyanocobalamin (Vitamin B12) 1,000 mcg PO DAILY [facility] Last Admin: 07/11/19 09:23 Dose: 1,000 mcg Admin: 07/10/19 10:20 Dose: Not Given Docusate Sodium (Colace) 100 mg PO DAILY [facility] Last Admin: 07/11/19 09:24 Dose: 100 mg Admin: 07/10/19 10:19 Dose: Not Given Enoxaparin Sodium (Lovenox) 30 mg SUBCUT Q24H [facility] Last Admin: 07/11/19 12:43 Dose: 30 mg Hydrochlorothiazide (Hydrochlorothiazide) 12.5 mg PO DAILY [facility] Last Admin: 07/11/19 09:27 Dose: 12.5 mg Admin: 07/10/19 10:20 Dose: Not Given Sodium Chloride (Normal Saline) 1,000 mls @ 0 mls/hr IV ASDIRECTED [facility] Last Admin: 07/11/19 17:58 Dose: 25 mls/hr Influenza Virus Vaccine (Fluzone High-Dose Syringe) 1 mcg IM ONETIME ONE Stop: 07/12/19 09:01 Losartan Potassium (Cozaar) 50 mg PO DAILY [facility] Last Admin: 07/11/19 09:24 Dose: 50 mg Admin: 07/10/19 10:19 Dose: Not Given Magnesium Hydroxide (Milk Of Magnesia) 30 ml PO Q6H PRN PRN Reason: Constipation Last Admin: 07/11/19 17:48 Dose: 30 ml Morphine Sulfate (Morphine) 2 mg IVPUSH Q2H PRN PRN Reason: Pain (moderate 4-6) Last Admin: 07/10/19 12:48 Dose: 2 mg Admin: 07/10/19 09:40 Dose: 2 mg Ondansetron HCl (Zofran Odt) 4 mg PO Q4H PRN PRN Reason: NAUSEA Oxycodone/Acetaminophen (Percocet 325-5 Mg) 1 - 2 tab PO Q4H PRN PRN Reason: Pain (severe 7-10) Last Admin: 07/11/19 13:36 Dose: 2 tab Admin: 07/11/19 09:36 Dose: 2 tab Admin: 07/11/19 05:38 Dose: 2 tab Potassium Chloride (Potassium Chloride) 10 meq PO DAILY [facility] Last Admin: 07/11/19 09:24 Dose: 10 meq Admin: 07/10/19 10:20 Dose: Not Given Pramipexole Dihydrochloride (Mirapex) 0.125 mg PO BID [facility] Last Admin: 07/11/19 09:24 Dose: 0.125 mg Admin: 07/10/19 21:04 Dose: 0.125 mg Admin: 07/10/19 10:20 Dose: Not Given Admin: 07/09/19 21:34 Dose: 0.125 mg Sodium Chloride (Saline Flush) 10 ml FLUSH ASDIRECTED PRN PRN Reason: Keep Vein Open Verapamil HCl (Calan Sr) 180 mg PO DAILY [facility] Last Admin: 07/11/19 09:24 Dose: 180 mg Admin: 07/10/19 10:19 Dose: Not Given Admin: 07/09/19 21:34 Dose: 180 mg Assessment/Plan Comment:: Assessment/Plan: #1. Right Hip intratrochanteric fracture. Hip replacement stable. #2. HTN: Will continue with Losartan/HCTZ 50/12.5 daily. and Verapamil BP now 142/56 #3. Hx. RA #4. HLD: Diet controlled #5. ARF in the past. presently eGFR>60 @#6. Osteoarthritis#7. Hx of Leukemia: Hb 8.5 with retic count of 0.8. Will T & C for 1 unit blood. Will check CBC in the morning. #8. Hx. of TIA #9. Hx. RLS: Continue with Pramipexole bid PO. #10. UTI: Culture is pending. Will start Amoxicillin until culture completed. Medically stable post op.
[2019-07-12] MEDS: Acetaminophen/HYDROcodone 325-5 MG Tab PO PRN ×4 (03:22→16:47)
[2019-07-12] MEDS: Amoxicillin 500 MG Cap PO SCH ×3 (03:23→19:50)
--- NOTE | 2019-07-12 06:23 | PCM.PN ---
- General Info Date of Service: 07/12/19 Functional Status: Reports: Pain Controlled - Review of Systems General: Reports: Weakness HEENT: Reports: No Symptoms Pulmonary: Reports: No Symptoms Cardiovascular: Reports: No Symptoms Gastrointestinal: Reports: No Symptoms Genitourinary: Reports: No Symptoms Musculoskeletal: Reports: Joint Pain Skin: Reports: No Symptoms Neurological: Reports: No Symptoms Psychiatric: Reports: No Symptoms - Patient Data Vitals - Most Recent: Last Vital Signs Temp 95.5 F 07/12/19 03:18 Pulse 71 07/12/19 03:18 Resp 14 07/12/19 03:18 BP 115/42 L 07/12/19 03:18 Pulse Ox 92 L 07/12/19 03:18 Weight - Most Recent: 149 lb 9.585 oz I&O - Last 24 Hours: Intake & Output 07/11/19 07/11/19 07/12/19 14:59 22:59 06:59 Intake Total 200 961 298 Output Total 200 250 Balance 0 711 298 Lab Results Last 24 Hours: Laboratory Results - last 24 hr 07/10/19 07/11/19 07/12/19 Range/Units 09:10 12:54 05:50 Percent Retic 0.8 (0.5-1.5) % Sodium 143 (140-148) mmol/L Potassium 3.5 L (3.6-5.2) mmol/L Chloride 107 (100-108) mmol/L Carbon Dioxide 28 (21-32) mmol/L Anion Gap 11.5 (5.0-14.0) mmol/L BUN 19 H (7-18) mg/dL Creatinine 0.8 (0.6-1.0) mg/dL Est Cr Clr Drug Dosing 46.19 mL/min Estimated GFR (MDRD) > 60 (>60) Glucose 100 (74-106) mg/dL Calcium 8.5 (8.5-10.1) mg/dL Blood Type O POSITIVE Gel Antibody Screen Negative Crossmatch See Detail [facility] Results Last 24 Hours: Microbiology 07/10/19 17:30 Urine Culture - Preliminary Urine, Clean Catch Med Orders - Current: Current Medications Acetaminophen (Tylenol) 650 mg PO Q4H PRN PRN Reason: Pain Hydrocodone Bitart/Acetaminophen ([place] 325-5 Mg) 1 tab PO Q4H PRN PRN Reason: Pain (moderate 4-6) Last Admin: 07/12/19 03:22 Dose: 1 tab Amoxicillin (Amoxil) 500 mg PO Q8H [facility] Last Admin: 07/12/19 03:23 Dose: 500 mg Cyanocobalamin (Vitamin B12) 1,000 mcg PO DAILY [facility] Last Admin: 07/11/19 09:23 Dose: 1,000 mcg Docusate Sodium (Colace) 100 mg PO DAILY [facility] Last Admin: 07/11/19 09:24 Dose: 100 mg Enoxaparin Sodium (Lovenox) 30 mg SUBCUT Q24H [facility] Last Admin: 07/11/19 12:43 Dose: 30 mg Hydrochlorothiazide (Hydrochlorothiazide) 12.5 mg PO DAILY [facility] Last Admin: 07/11/19 09:27 Dose: 12.5 mg Sodium Chloride (Normal Saline) 1,000 mls @ 0 mls/hr IV ASDIRECTED [facility] Last Admin: 07/11/19 17:58 Dose: 25 mls/hr Influenza Virus Vaccine (Fluzone High-Dose 2019- Syringe) 1 mcg IM ONETIME ONE Stop: 07/12/19 09:01 Losartan Potassium (Cozaar) 50 mg PO DAILY [facility] Last Admin: 07/11/19 09:24 Dose: 50 mg Magnesium Hydroxide (Milk Of Magnesia) 30 ml PO Q6H PRN PRN Reason: Constipation Last Admin: 07/11/19 17:48 Dose: 30 ml Morphine Sulfate (Morphine) 2 mg IVPUSH Q2H PRN PRN Reason: Pain (moderate 4-6) Last Admin: 07/10/19 12:48 Dose: 2 mg Ondansetron HCl (Zofran Odt) 4 mg PO Q4H PRN PRN Reason: NAUSEA Oxycodone/Acetaminophen (Percocet 325-5 Mg) 1 - 2 tab PO Q4H PRN PRN Reason: Pain (severe 7-10) Last Admin: 07/11/19 13:36 Dose: 2 tab Potassium Chloride (Potassium Chloride) 10 meq PO DAILY [facility] Last Admin: 07/11/19 09:24 Dose: 10 meq Pramipexole Dihydrochloride (Mirapex) 0.125 mg PO BID [facility] Last Admin: 07/11/19 20:52 Dose: 0.125 mg Sodium Chloride (Saline Flush) 10 ml FLUSH ASDIRECTED PRN PRN Reason: Keep Vein Open Verapamil HCl (Calan Sr) 180 mg PO DAILY [facility] Last Admin: 07/11/19 09:24 Dose: 180 mg Discontinued Medications Bupivacaine HCl/Epinephrine Bitart (Marcaine 0.5%/Epinephrine 1:200,000) Confirm Administered Dose 50 ml .ROUTE .STK-MED ONE Stop: 07/10/19 09:52 Fentanyl (Sublimaze) Confirm Administered Dose 100 mcg .ROUTE .STK-MED ONE Stop: 07/10/19 08:33 Potassium Chloride 40 meq/ (Premix) 100 mls @ 25 mls/hr IV ONETIME ONE Stop: 07/10/19 00:29 Last Admin: 07/09/19 22:25 Dose: Not Given Potassium Chloride 20 meq/ (Premix) 100 mls @ 50 mls/hr IV Q2H [facility] Stop: 07/10/19 01:59 Last Admin: 07/10/19 00:54 Dose: 50 mls/hr Sodium Chloride (Normal Saline) 1,000 mls @ 100 mls/hr IV ASDIRECTED [facility] Last Admin: 07/11/19 05:34 Dose: 100 mls/hr Cefazolin Sodium/Dextrose 2 gm (/ Premix) 50 mls @ 100 mls/hr IV ONETIME ONE Stop: 07/10/19 11:29 Last Admin: 07/10/19 11:20 Dose: 100 mls/hr Ampicillin Sodium 1 gm/ Sodium (Chloride) 50 mls @ 100 mls/hr IV ONETIME ONE Stop: 07/10/19 09:59 Last Admin: 07/10/19 09:41 Dose: 100 mls/hr Lidocaine HCl (Xylocaine-Mpf 1%) 2 ml IV ONETIME [facility] Stop: 07/10/19 21:31 Last Admin: 07/09/19 21:36 Dose: 2 ml Lidocaine HCl (Xylocaine 1%) 2 ml INJECT ONETIME ONE Stop: 07/10/19 00:12 Last Admin: 07/10/19 00:43 Dose: Not Given Lidocaine HCl (Xylocaine-Mpf 1%) 2 ml INJECT ONETIME STA Stop: 07/10/19 00:41 Last Admin: 07/10/19 00:54 Dose: 2 ml Losartan Potassium (Cozaar) 50 mg PO DAILY [facility] Midazolam HCl (Versed 1 Mg/Ml) Confirm Administered Dose 2 mg .ROUTE .STK-MED ONE Stop: 07/10/19 09:17 Propofol (Diprivan 20 Ml) Confirm Administered Dose 200 mg .ROUTE .STK-MED ONE Stop: 07/10/19 09:17 - Exam General: Alert, Oriented, No Acute Distress HEENT: Pupils Equal, Pupils Reactive, EOMI, Mucous Membr. Moist/[place] Neck: Supple Lungs: Clear to Auscultation, Normal Respiratory Effort Cardiovascular: Regular Rate, Regular Rhythm GI/Abdominal Exam: Normal Bowel Sounds Extremities: Leg Pain Peripheral Pulses: 1+: Radial (L), Radial (R) Skin: Warm, Dry, Intact - Problem List Review Problem List Initiated/Reviewed/Updated: Yes - My Orders Last 24 Hours: My Active Orders 07/11/19 20:37 Transfuse Red Blood Cells [COMM] Routine 07/12/19 05:50 CBC WITH AUTO DIFF [HEME] AM 07/12/19 09:00 FLU Vacc [id number](65YR UP)/PF [Fluzone High-Dose Syringe] 1 mcg IM ONETIME ONE - Plan Plan:: Assessment/Plan: #1. Right Hip intratrochanteric fracture. Hip replacement stable. #2. HTN: Will continue with Losartan/HCTZ 50/12.5 daily. and Verapamil BP now 115/42 #3. Hx. RA #4. HLD: Diet controlled #5. ARF in the past. presently eGFR>60 @#6. Osteoarthritis#7. Hx of Leukemia: Hb 10.2 with retic count of 0.8, 9.8 wbc. 1 unit blood given. Will check CBC in the morning. #8. Hx. of TIA #9. Hx. RLS: Continue with Pramipexole bid PO. #10. UTI: Culture is pending. Will start Amoxicillin until culture completed. Medically stable post op.
--- NOTE | 2019-07-12 08:00 | OR ---
DATE OF PROCEDURE: 07/10/2019 SURGEON: Marv Donovan MD PREOPERATIVE DIAGNOSIS: Displaced intertrochanteric fracture, right hip. POSTOPERATIVE DIAGNOSIS: Displaced intertrochanteric fracture, right hip. PROCEDURE: Closed reduction and intramedullary fixation, right hip using Synthes TFN device. ANESTHESIA: Spinal with sedation. INDICATIONS: Mrs. Solo is an 84-year-old female who sustained a fall yesterday, resulting in fracture of her right hip. There is a question whether she fell and fractured the hip or had a pathologic insufficiency fracture causing the fall. In any event, x-rays revealed a displaced intertrochanteric fracture of the right hip. She is now taken to the operating room for closed reduction and fixation. Risks, benefits, potential complications of the procedure were discussed with the patient and her . Both agreed to proceed. PROCEDURE IN DETAIL: After adequate anesthesia was obtained, the patient was placed on the fracture table. Padded perineal post was utilized. Longitudinal traction placed on the right leg with slight adduction. The left leg was abducted. C-arm fluoroscopy was utilized to confirm reduction of the fracture. The left hip was then prepped and draped in a sterile fashion. Incision was made from the tip of the trochanter and taken slightly superior. This was carried down through the subcutaneous tissues. Hemostasis was obtained with electrocautery. Tensor fascia was divided longitudinally in blunt dissection and carried down to the tip of the trochanter. Under fluoroscopic guidance, a guide pin was placed into the proximal femur. Reamer was then placed over this. A short 12 mm diameter TFNa ranjan was then placed into the intramedullary canal. Guide for the spiral blade was then placed into the aiming device and a separate stab incision was made inferior to the trochanter. Guide was positioned against the lateral cortex and a guide pin was then advanced into the femoral head and neck. Position was confirmed on AP and lateral images. This was measured and a 95 mm spiral blade was chosen. The lateral cortex was drilled and the blade was then placed over the guide pin. The guide pin was removed. Position was confirmed and the locking screw was then tightened in the proximal aspect of the ranjan. Aiming cannula was then placed for the distal locking screw. A separate small stab incision was made. Cannula was advanced to the lateral cortex. This was drilled and measured and a 38 mm screw was then placed. Final position was confirmed after removal of the insertion arm. Wounds were then thoroughly irrigated. There was some blood loss through the medullary canal, approximately 200 mL. The tensor fascia was then closed in a running locking fashion with 0 Vicryl. Skin was closed with 2-0 Vicryl and 3-0 Monocryl. Steri-Strips were applied. Sterile dressing was then placed. The patient tolerated the procedure well. There were no complications. Taken from the operating room under stable conditions. Marv Donovan MD /[id number] [email or web address]
[2019-07-12] MEDS: Cyanocobalamin (Vitamin B12) 1,000 MCG Tab PO SCH (08:04)
[2019-07-12] MEDS: Pramipexole 0.25 MG Tab PO SCH ×2 (08:05→21:08)
[2019-07-12] MEDS: Hydrochlorothiazide 12.5 MG Cap PO SCH (08:05)
[2019-07-12] MEDS: Potassium Chloride 10 MEQ Cap.ER PO SCH ×3 (08:05→21:08)
[2019-07-12] MEDS: Losartan 50 MG Tab PO SCH (08:06)
[2019-07-12] MEDS: Docusate Sodium 100 MG Cap PO SCH (08:06)
[2019-07-12] MEDS: Verapamil 180 MG Tab.ER PO SCH (08:06)
[2019-07-12] MEDS: Magnesium Hydroxide 400 MG/5 ML Susp 30 ML Cup PO PRN (13:31)
[2019-07-12] MEDS: Enoxaparin 30 MG/0.3 ML Syringe SUBCUT SCH (13:31)
--- NOTE | 2019-07-12 16:12 | PCM.SURGPN ---
- General Info Date of Service: 07/12/19 POD#: 2 Functional Status: Reports: Pain Controlled, Tolerating Diet - Review of Systems General: Reports: No Symptoms HEENT: Reports: No Symptoms Pulmonary: Reports: No Symptoms Cardiovascular: Reports: No Symptoms Gastrointestinal: Reports: No Symptoms, Other (minimal appetite) Skin: Reports: No Symptoms Neurological: Reports: No Symptoms Psychiatric: Reports: No Symptoms - Patient Data Vitals - Most Recent: Last Vital Signs Temp 36.1 C 07/12/19 14:50 Pulse 80 07/12/19 14:50 Resp 18 07/12/19 14:50 BP 130/56 L 07/12/19 14:50 Pulse Ox 95 07/12/19 14:50 Weight - Most Recent: 67.857 kg I&O - Last 24 Hours: Intake & Output 07/12/19 07/12/19 07/12/19 06:59 14:59 22:59 Intake Total 298 882 Output Total 400 Balance 298 482 Lab Results Last 24 Hrs: Laboratory Results - last 24 hr 07/10/19 07/12/19 07/12/19 Range/Units 09:10 05:50 05:50 WBC 9.8 (4.5-11.0) K/uL RBC 3.26 L (3.30-5.50) M/uL Hgb 10.2 L (12.0-15.0) g/dL Hct 31.3 L (36.0-48.0) % MCV 96 (80-98) fL MCH 31 (27-31) pg MCHC 33 (32-36) % Plt Count 197 (150-400) K/uL Neut % (Auto) 78 H (36-66) % Lymph % (Auto) 7 L (24-44) % Jay % (Auto) 13 H (2-6) % Eos % (Auto) 2 (2-4) % Baso % (Auto) 0 (0-1) % Sodium 143 (140-148) mmol/L Potassium 3.5 L (3.6-5.2) mmol/L Chloride 107 (100-108) mmol/L Carbon Dioxide 28 (21-32) mmol/L Anion Gap 11.5 (5.0-14.0) mmol/L BUN 19 H (7-18) mg/dL Creatinine 0.8 (0.6-1.0) mg/dL Est Cr Clr Drug Dosing 46.19 mL/min Estimated GFR (MDRD) > 60 (>60) Glucose 100 (74-106) mg/dL Calcium 8.5 (8.5-10.1) mg/dL Blood Type O POSITIVE Gel Antibody Screen Negative Crossmatch See Detail Benito Results Last 24 Hrs: Microbiology 07/10/19 17:30 Urine Culture - Preliminary Urine, Clean Catch Med Orders - Current: Current Medications Acetaminophen (Tylenol) 650 mg PO Q4H PRN PRN Reason: Pain Hydrocodone Bitart/Acetaminophen ([place] 325-5 Mg) 1 tab PO Q4H PRN PRN Reason: Pain (moderate 4-6) Last Admin: 07/12/19 12:00 Dose: 1 tab Amoxicillin (Amoxil) 500 mg PO Q8H [facility] Last Admin: 07/12/19 11:36 Dose: 500 mg Cyanocobalamin (Vitamin B12) 1,000 mcg PO DAILY [facility] Last Admin: 07/12/19 08:04 Dose: 1,000 mcg Docusate Sodium (Colace) 100 mg PO DAILY [facility] Last Admin: 07/12/19 08:06 Dose: 100 mg Enoxaparin Sodium (Lovenox) 30 mg SUBCUT Q24H [facility] Last Admin: 07/12/19 13:31 Dose: 30 mg Hydrochlorothiazide (Hydrochlorothiazide) 12.5 mg PO DAILY [facility] Last Admin: 07/12/19 08:05 Dose: 12.5 mg Sodium Chloride (Normal Saline) 1,000 mls @ 0 mls/hr IV ASDIRECTED [facility] Last Admin: 07/11/19 17:58 Dose: 25 mls/hr Losartan Potassium (Cozaar) 50 mg PO DAILY [facility] Last Admin: 07/12/19 08:06 Dose: 50 mg Magnesium Hydroxide (Milk Of Magnesia) 30 ml PO Q6H PRN PRN Reason: Constipation Last Admin: 07/12/19 13:31 Dose: 30 ml Morphine Sulfate (Morphine) 2 mg IVPUSH Q2H PRN PRN Reason: Pain (moderate 4-6) Last Admin: 07/10/19 12:48 Dose: 2 mg Ondansetron HCl (Zofran Odt) 4 mg PO Q4H PRN PRN Reason: NAUSEA Oxycodone/Acetaminophen (Percocet 325-5 Mg) 1 - 2 tab PO Q4H PRN PRN Reason: Pain (severe 7-10) Last Admin: 07/11/19 13:36 Dose: 2 tab Potassium Chloride (Potassium Chloride) 10 meq PO TID [facility] Stop: 07/12/19 23:00 Last Admin: 07/12/19 13:32 Dose: 10 meq Potassium Chloride (Potassium Chloride) 10 meq PO BIDMEALS [facility] Pramipexole Dihydrochloride (Mirapex) 0.125 mg PO BID [facility] Last Admin: 07/12/19 08:05 Dose: 0.125 mg Sodium Chloride (Saline Flush) 10 ml FLUSH ASDIRECTED PRN PRN Reason: Keep Vein Open Verapamil HCl (Calan Sr) 180 mg PO DAILY [facility] Last Admin: 07/12/19 08:06 Dose: 180 mg Discontinued Medications Bupivacaine HCl/Epinephrine Bitart (Marcaine 0.5%/Epinephrine 1:200,000) Confirm Administered Dose 50 ml .ROUTE .STK-MED ONE Stop: 07/10/19 09:52 Bupivacaine HCl/Epinephrine Bitart (Marcaine 0.5%/Epinephrine 1:200,000) 20 ml INJECT .STK-MED ONE Stop: 07/10/19 11:01 Last Admin: 07/10/19 11:00 Dose: 20 ml Fentanyl (Sublimaze) Confirm Administered Dose 100 mcg .ROUTE .STK-MED ONE Stop: 07/10/19 08:33 Potassium Chloride 40 meq/ (Premix) 100 mls @ 25 mls/hr IV ONETIME ONE Stop: 07/10/19 00:29 Last Admin: 07/09/19 22:25 Dose: Not Given Potassium Chloride 20 meq/ (Premix) 100 mls @ 50 mls/hr IV Q2H [facility] Stop: 07/10/19 01:59 Last Admin: 07/10/19 00:54 Dose: 50 mls/hr Sodium Chloride (Normal Saline) 1,000 mls @ 100 mls/hr IV ASDIRECTED [facility] Last Admin: 07/11/19 05:34 Dose: 100 mls/hr Cefazolin Sodium/Dextrose 2 gm (/ Premix) 50 mls @ 100 mls/hr IV ONETIME ONE Stop: 07/10/19 11:29 Last Admin: 07/10/19 11:20 Dose: 100 mls/hr Ampicillin Sodium 1 gm/ Sodium (Chloride) 50 mls @ 100 mls/hr IV ONETIME ONE Stop: 07/10/19 09:59 Last Admin: 07/10/19 09:41 Dose: 100 mls/hr Influenza Virus Vaccine (Fluzone High-Dose 2019-20 Syringe) 180 mcg IM ONETIME ONE Stop: 07/12/19 09:01 Last Admin: 07/12/19 08:08 Dose: 180 mcg Lidocaine HCl (Xylocaine-Mpf 1%) 2 ml IV ONETIME [facility] Stop: 07/10/19 21:31 Last Admin: 07/09/19 21:36 Dose: 2 ml Lidocaine HCl (Xylocaine 1%) 2 ml INJECT ONETIME ONE Stop: 07/10/19 00:12 Last Admin: 07/10/19 00:43 Dose: Not Given Lidocaine HCl (Xylocaine-Mpf 1%) 2 ml INJECT ONETIME STA Stop: 07/10/19 00:41 Last Admin: 07/10/19 00:54 Dose: 2 ml Losartan Potassium (Cozaar) 50 mg PO DAILY [facility] Midazolam HCl (Versed 1 Mg/Ml) Confirm Administered Dose 2 mg .ROUTE .STK-MED ONE Stop: 07/10/19 09:17 Potassium Chloride (Potassium Chloride) 10 meq PO DAILY [facility] Last Admin: 07/11/19 09:24 Dose: 10 meq Propofol (Diprivan 20 Ml) Confirm Administered Dose 200 mg .ROUTE .STK-MED ONE Stop: 07/10/19 09:17 - Exam Wound/Incisions: Healing Well, No Drainage General: Alert, Oriented Skin: Warm, Dry, Intact Neurological: No New Focal Deficit - Problem List & Annotations (1) Intertrochanteric fracture of right hip SNOMED Code(s): 140702326 Code(s): S72.141A - DISPLACED INTERTROCHANTERIC FRACTURE OF RIGHT FEMUR, INIT Status: Acute Current Visit: Yes Qualifiers: Encounter type: initial encounter Fracture type: closed Fracture alignment: displaced Qualified Code(s): S72.141A - Displaced intertrochanteric fracture of right femur, initial encounter for closed fracture (2) Postoperative anemia due to acute blood loss SNOMED Code(s): 74256647387109687 Code(s): D62 - ACUTE POSTHEMORRHAGIC ANEMIA Status: Acute Current Visit: Yes - Problem List Review Problem List Initiated/Reviewed/Updated: Yes - My Orders Last 24 Hours: Active Orders 24 hr Category Date Time Status BASIC METABOLIC PANEL,BMP [CHEM] Routine Lab 07/13/19 05:11 Ordered CBC WITH AUTO DIFF [HEME] Routine Lab 07/13/19 05:11 Ordered Potassium Chloride Med 07/13/19 09:00 Active 10 meq PO BIDMEALS Potassium Chloride Med 07/12/19 09:00 Active 10 meq PO TID Sodium Chloride 0.9% [Normal Saline] 1,000 ml Med 07/11/19 17:45 Active IV ASDIRECTED Transfuse Red Blood Cells [COMM] Routine Oth 07/11/19 20:37 Ordered Medication Orders Acetaminophen (Tylenol) 650 mg PO Q4H PRN PRN Reason: Pain Hydrocodone Bitart/Acetaminophen ([place] 325-5 Mg) 1 tab PO Q4H PRN PRN Reason: Pain (moderate 4-6) Last Admin: 07/12/19 12:00 Dose: 1 tab Admin: 07/12/19 08:02 Dose: 1 tab Admin: 07/12/19 03:22 Dose: 1 tab Admin: 07/11/19 22:02 Dose: 1 tab Admin: 07/11/19 17:47 Dose: 1 tab Admin: 07/11/19 01:38 Dose: 1 tab Admin: 07/10/19 21:15 Dose: 1 tab Admin: 07/10/19 17:19 Dose: 1 tab Admin: 07/10/19 06:28 Dose: 1 tab Admin: 07/09/19 20:43 Dose: 1 tab Amoxicillin (Amoxil) 500 mg PO Q8H [facility] Last Admin: 07/12/19 11:36 Dose: 500 mg Admin: 07/12/19 03:23 Dose: 500 mg Admin: 07/11/19 20:51 Dose: 500 mg Admin: 07/11/19 12:43 Dose: 500 mg Admin: 07/11/19 04:46 Dose: 500 mg Admin: 07/10/19 21:15 Dose: 500 mg Cyanocobalamin (Vitamin B12) 1,000 mcg PO DAILY [facility] Last Admin: 07/12/19 08:04 Dose: 1,000 mcg Admin: 07/11/19 09:23 Dose: 1,000 mcg Admin: 07/10/19 10:20 Dose: Not Given Docusate Sodium (Colace) 100 mg PO DAILY [facility] Last Admin: 07/12/19 08:06 Dose: 100 mg Admin: 07/11/19 09:24 Dose: 100 mg Admin: 07/10/19 10:19 Dose: Not Given Enoxaparin Sodium (Lovenox) 30 mg SUBCUT Q24H [facility] Last Admin: 07/12/19 13:31 Dose: 30 mg Admin: 07/11/19 12:43 Dose: 30 mg Hydrochlorothiazide (Hydrochlorothiazide) 12.5 mg PO DAILY [facility] Last Admin: 07/12/19 08:05 Dose: 12.5 mg Admin: 07/11/19 09:27 Dose: 12.5 mg Admin: 07/10/19 10:20 Dose: Not Given Sodium Chloride (Normal Saline) 1,000 mls @ 0 mls/hr IV ASDIRECTED [facility] Last Admin: 07/11/19 17:58 Dose: 25 mls/hr Losartan Potassium (Cozaar) 50 mg PO DAILY [facility] Last Admin: 07/12/19 08:06 Dose: 50 mg Admin: 07/11/19 09:24 Dose: 50 mg Admin: 07/10/19 10:19 Dose: Not Given Magnesium Hydroxide (Milk Of Magnesia) 30 ml PO Q6H PRN PRN Reason: Constipation Last Admin: 07/12/19 13:31 Dose: 30 ml Admin: 07/11/19 17:48 Dose: 30 ml Morphine Sulfate (Morphine) 2 mg IVPUSH Q2H PRN PRN Reason: Pain (moderate 4-6) Last Admin: 07/10/19 12:48 Dose: 2 mg Admin: 07/10/19 09:40 Dose: 2 mg Ondansetron HCl (Zofran Odt) 4 mg PO Q4H PRN PRN Reason: NAUSEA Oxycodone/Acetaminophen (Percocet 325-5 Mg) 1 - 2 tab PO Q4H PRN PRN Reason: Pain (severe 7-10) Last Admin: 07/11/19 13:36 Dose: 2 tab Admin: 07/11/19 09:36 Dose: 2 tab Admin: 07/11/19 05:38 Dose: 2 tab Potassium Chloride (Potassium Chloride) 10 meq PO TID [facility] Stop: 07/12/19 23:00 Last Admin: 07/12/19 13:32 Dose: 10 meq Admin: 07/12/19 08:05 Dose: 10 meq Potassium Chloride (Potassium Chloride) 10 meq PO BIDMEALS [facility] Pramipexole Dihydrochloride (Mirapex) 0.125 mg PO BID [facility] Last Admin: 07/12/19 08:05 Dose: 0.125 mg Admin: 07/11/19 20:52 Dose: 0.125 mg Admin: 07/11/19 09:24 Dose: 0.125 mg Admin: 07/10/19 21:04 Dose: 0.125 mg Admin: 07/10/19 10:20 Dose: Not Given Admin: 07/09/19 21:34 Dose: 0.125 mg Sodium Chloride (Saline Flush) 10 ml FLUSH ASDIRECTED PRN PRN Reason: Keep Vein Open Verapamil HCl (Calan Sr) 180 mg PO DAILY [facility] Last Admin: 07/12/19 08:06 Dose: 180 mg Admin: 07/11/19 09:24 Dose: 180 mg Admin: 07/10/19 10:19 Dose: Not Given Admin: 07/09/19 21:34 Dose: 180 mg - Assessment Assessment (Free Text/Narrative):: Was up in chair today, max assist, transfused RBCs and Hgb back up to 10.5, not eating much, dressing removed and incisions look good. - Plan Plan (Free Text/Narrative):: Very limited mobility, would recommend waiting until Monday to transfer to SNF.
[2019-07-12] MEDS: Acetaminophen/oxyCODONE 325-5 MG Tab PO PRN (21:13)
[2019-07-13] MEDS: Acetaminophen/HYDROcodone 325-5 MG Tab PO PRN ×2 (04:05→21:08)
[2019-07-13] MEDS: Amoxicillin 500 MG Cap PO SCH ×2 (04:08→12:41)
[2019-07-13] MEDS: Acetaminophen/oxyCODONE 325-5 MG Tab PO PRN ×3 (07:58→16:28)
[2019-07-13] MEDS: Losartan 50 MG Tab PO SCH (09:53)
[2019-07-13] MEDS: Hydrochlorothiazide 12.5 MG Cap PO SCH (09:53)
[2019-07-13] MEDS: Docusate Sodium 100 MG Cap PO SCH (09:53)
[2019-07-13] MEDS: Pramipexole 0.25 MG Tab PO SCH ×2 (09:53→20:10)
[2019-07-13] MEDS: Verapamil 180 MG Tab.ER PO SCH (09:53)
[2019-07-13] MEDS: Potassium Chloride 10 MEQ Cap.ER PO SCH ×2 (09:54→20:09)
[2019-07-13] MEDS: Cyanocobalamin (Vitamin B12) 1,000 MCG Tab PO SCH (09:54)
[2019-07-13] MEDS: Enoxaparin 30 MG/0.3 ML Syringe SUBCUT SCH (12:41)
--- NOTE | 2019-07-13 17:27 | PCM.SURGPN ---
- General Info Date of Service: 07/13/19 POD#: 3 Post-Op Diagnosis: S/P intramedullaryt nailing right intertrochanteric fracture Functional Status: Reports: Pain Controlled, Tolerating Diet, Urinating - Review of Systems General: Reports: No Symptoms HEENT: Reports: No Symptoms Pulmonary: Reports: No Symptoms Cardiovascular: Reports: No Symptoms Gastrointestinal: Reports: No Symptoms Genitourinary: Reports: No Symptoms Musculoskeletal: Reports: Leg Pain Skin: Reports: No Symptoms Neurological: Reports: No Symptoms Psychiatric: Reports: No Symptoms - Patient Data Vitals - Most Recent: Last Vital Signs Temp 35.5 C 07/13/19 14:55 Pulse 78 07/13/19 14:55 Resp 16 07/13/19 14:55 BP 126/49 L 07/13/19 14:55 Pulse Ox 95 07/13/19 14:55 Weight - Most Recent: 67.857 kg I&O - Last 24 Hours: Intake & Output 07/13/19 07/13/19 07/13/19 06:59 14:59 22:59 Intake Total 558 720 Output Total 350 550 Balance 208 170 Lab Results Last 24 Hrs: Laboratory Results - last 24 hr 07/13/19 07/13/19 Range/Units 04:20 04:20 WBC 9.5 (4.5-11.0) K/uL RBC 3.10 L (3.30-5.50) M/uL Hgb 9.6 L (12.0-15.0) g/dL Hct 29.8 L (36.0-48.0) % MCV 96 (80-98) fL MCH 31 (27-31) pg MCHC 32 (32-36) % Plt Count 217 (150-400) K/uL Neut % (Auto) 80 H (36-66) % Lymph % (Auto) 8 L (24-44) % Piute % (Auto) 9 H (2-6) % Eos % (Auto) 3 (2-4) % Baso % (Auto) 0 (0-1) % Sodium 143 (140-148) mmol/L Potassium 3.9 (3.6-5.2) mmol/L Chloride 109 H (100-108) mmol/L Carbon Dioxide 25 (21-32) mmol/L Anion Gap 12.9 (5.0-14.0) mmol/L BUN 23 H (7-18) mg/dL Creatinine 0.6 (0.6-1.0) mg/dL Est Cr Clr Drug Dosing 61.58 mL/min Estimated GFR (MDRD) > 60 (>60) Glucose 95 (74-106) mg/dL Calcium 8.8 (8.5-10.1) mg/dL Benito Results Last 24 Hrs: Microbiology 07/10/19 17:30 Urine Culture - Final Urine, Clean Catch Enterobacter Cloacae Ss Lupe. Klebsiella Pneumonia Ss Pneumo Med Orders - Current: Current Medications Acetaminophen (Tylenol) 650 mg PO Q4H PRN PRN Reason: Pain Hydrocodone Bitart/Acetaminophen ([place]ren 325-5 Mg) 1 tab PO Q4H PRN PRN Reason: Pain (moderate 4-6) Last Admin: 07/13/19 04:05 Dose: 1 tab Cyanocobalamin (Vitamin B12) 1,000 mcg PO DAILY [facility] Last Admin: 07/13/19 09:54 Dose: 1,000 mcg Docusate Sodium (Colace) 100 mg PO DAILY [facility] Last Admin: 07/13/19 09:53 Dose: 100 mg Enoxaparin Sodium (Lovenox) 30 mg SUBCUT Q24H [facility] Last Admin: 07/13/19 12:41 Dose: 30 mg Hydrochlorothiazide (Hydrochlorothiazide) 12.5 mg PO DAILY [facility] Last Admin: 07/13/19 09:53 Dose: 12.5 mg Sodium Chloride (Normal Saline) 1,000 mls @ 0 mls/hr IV ASDIRECTED [facility] Last Admin: 07/11/19 17:58 Dose: 25 mls/hr Losartan Potassium (Cozaar) 50 mg PO DAILY [facility] Last Admin: 07/13/19 09:53 Dose: 50 mg Magnesium Hydroxide (Milk Of Magnesia) 30 ml PO Q6H PRN PRN Reason: Constipation Last Admin: 07/12/19 13:31 Dose: 30 ml Morphine Sulfate (Morphine) 2 mg IVPUSH Q2H PRN PRN Reason: Pain (moderate 4-6) Last Admin: 07/10/19 12:48 Dose: 2 mg Ondansetron HCl (Zofran Odt) 4 mg PO Q4H PRN PRN Reason: NAUSEA Oxycodone/Acetaminophen (Percocet 325-5 Mg) 1 - 2 tab PO Q4H PRN PRN Reason: Pain (severe 7-10) Last Admin: 07/13/19 16:28 Dose: 2 tab Potassium Chloride (Potassium Chloride) 10 meq PO BIDMEALS [facility] Last Admin: 07/13/19 09:54 Dose: 10 meq Pramipexole Dihydrochloride (Mirapex) 0.125 mg PO BID [facility] Last Admin: 07/13/19 09:53 Dose: 0.125 mg Sodium Chloride (Saline Flush) 10 ml FLUSH ASDIRECTED PRN PRN Reason: Keep Vein Open Trimethoprim/Sulfamethoxazole (Septra Ds) 1 tab PO BID [facility] Verapamil HCl (Calan Sr) 180 mg PO DAILY [facility] Last Admin: 07/13/19 09:53 Dose: 180 mg Discontinued Medications Amoxicillin (Amoxil) 500 mg PO Q8H [facility] Last Admin: 07/13/19 12:41 Dose: 500 mg Bupivacaine HCl/Epinephrine Bitart (Marcaine 0.5%/Epinephrine 1:200,000) Confirm Administered Dose 50 ml .ROUTE .STK-MED ONE Stop: 07/10/19 09:52 Bupivacaine HCl/Epinephrine Bitart (Marcaine 0.5%/Epinephrine 1:200,000) 20 ml INJECT .STK-MED ONE Stop: 07/10/19 11:01 Last Admin: 07/10/19 11:00 Dose: 20 ml Fentanyl (Sublimaze) Confirm Administered Dose 100 mcg .ROUTE .STK-MED ONE Stop: 07/10/19 08:33 Potassium Chloride 40 meq/ (Premix) 100 mls @ 25 mls/hr IV ONETIME ONE Stop: 07/10/19 00:29 Last Admin: 07/09/19 22:25 Dose: Not Given Potassium Chloride 20 meq/ (Premix) 100 mls @ 50 mls/hr IV Q2H [facility] Stop: 07/10/19 01:59 Last Admin: 07/10/19 00:54 Dose: 50 mls/hr Sodium Chloride (Normal Saline) 1,000 mls @ 100 mls/hr IV ASDIRECTED [facility] Last Admin: 07/11/19 05:34 Dose: 100 mls/hr Cefazolin Sodium/Dextrose 2 gm (/ Premix) 50 mls @ 100 mls/hr IV ONETIME ONE Stop: 07/10/19 11:29 Last Admin: 07/10/19 11:20 Dose: 100 mls/hr Ampicillin Sodium 1 gm/ Sodium (Chloride) 50 mls @ 100 mls/hr IV ONETIME ONE Stop: 07/10/19 09:59 Last Admin: 07/10/19 09:41 Dose: 100 mls/hr Influenza Virus Vaccine (Fluzone High-Dose 2019-20 Syringe) 180 mcg IM ONETIME ONE Stop: 07/12/19 09:01 Last Admin: 07/12/19 08:08 Dose: 180 mcg Lidocaine HCl (Xylocaine-Mpf 1%) 2 ml IV ONETIME [facility] Stop: 07/10/19 21:31 Last Admin: 07/09/19 21:36 Dose: 2 ml Lidocaine HCl (Xylocaine 1%) 2 ml INJECT ONETIME ONE Stop: 07/10/19 00:12 Last Admin: 07/10/19 00:43 Dose: Not Given Lidocaine HCl (Xylocaine-Mpf 1%) 2 ml INJECT ONETIME [facility] Stop: 07/10/19 00:41 Last Admin: 07/10/19 00:54 Dose: 2 ml Losartan Potassium (Cozaar) 50 mg PO DAILY [facility] Midazolam HCl (Versed 1 Mg/Ml) Confirm Administered Dose 2 mg .ROUTE .STK-MED ONE Stop: 07/10/19 09:17 Potassium Chloride (Potassium Chloride) 10 meq PO DAILY [facility] Last Admin: 07/11/19 09:24 Dose: 10 meq Potassium Chloride (Potassium Chloride) 10 meq PO TID [facility] Stop: 07/12/19 23:00 Last Admin: 07/12/19 21:08 Dose: 10 meq Propofol (Diprivan 20 Ml) Confirm Administered Dose 200 mg .ROUTE .STK-MED ONE Stop: 07/10/19 09:17 - Exam Wound/Incisions: Healing Well, No Drainage General: Other (sleepy today) HEENT: Pupils Equal Neck: Supple Lungs: Clear to Auscultation, Normal Respiratory Effort Cardiovascular: Regular Rate, Regular Rhythm GI/Abdominal Exam: Normal Bowel Sounds, Soft, Non-Tender, No Organomegaly, No Distention, No Abnormal Bruit, No Mass, Pelvis Stable Extremities: Leg Pain, Limited Range of Motion Skin: Warm, Dry, Intact Neurological: No New Focal Deficit Psy/Mental Status: Alert, Normal Affect, Normal Mood - Problem List & Annotations (1) Intertrochanteric fracture of right hip SNOMED Code(s): 842565847 Code(s): S72.141A - DISPLACED INTERTROCHANTERIC FRACTURE OF RIGHT FEMUR, INIT Status: Acute Current Visit: Yes Qualifiers: Encounter type: initial encounter Fracture type: closed Fracture alignment: displaced Qualified Code(s): S72.141A - Displaced intertrochanteric fracture of right femur, initial encounter for closed fracture (2) Postoperative anemia due to acute blood loss SNOMED Code(s): 54737713236740537 Code(s): D62 - ACUTE POSTHEMORRHAGIC ANEMIA Status: Acute Current Visit: Yes - Problem List Review Problem List Initiated/Reviewed/Updated: Yes - My Orders Last 24 Hours: Active Orders 24 hr Category Date Time Status Dietary Supplements [RC] BIDMEALS Care 07/13/19 17:19 Ordered Potassium Chloride Med 07/13/19 09:00 Active 10 meq PO BIDMEALS Sulfamethoxazole/Trimethoprim [Septra DS] Med 07/13/19 21:00 Ordered 1 tab PO BID Medication Orders Acetaminophen (Tylenol) 650 mg PO Q4H PRN PRN Reason: Pain Hydrocodone Bitart/Acetaminophen ([place]ren 325-5 Mg) 1 tab PO Q4H PRN PRN Reason: Pain (moderate 4-6) Last Admin: 07/13/19 04:05 Dose: 1 tab Admin: 07/12/19 16:47 Dose: 1 tab Admin: 07/12/19 12:00 Dose: 1 tab Admin: 07/12/19 08:02 Dose: 1 tab Admin: 07/12/19 03:22 Dose: 1 tab Admin: 07/11/19 22:02 Dose: 1 tab Admin: 07/11/19 17:47 Dose: 1 tab Admin: 07/11/19 01:38 Dose: 1 tab Admin: 07/10/19 21:15 Dose: 1 tab Admin: 07/10/19 17:19 Dose: 1 tab Admin: 07/10/19 06:28 Dose: 1 tab Admin: 07/09/19 20:43 Dose: 1 tab Cyanocobalamin (Vitamin B12) 1,000 mcg PO DAILY [facility] Last Admin: 07/13/19 09:54 Dose: 1,000 mcg Admin: 07/12/19 08:04 Dose: 1,000 mcg Admin: 07/11/19 09:23 Dose: 1,000 mcg Admin: 07/10/19 10:20 Dose: Not Given Docusate Sodium (Colace) 100 mg PO DAILY [facility] Last Admin: 07/13/19 09:53 Dose: 100 mg Admin: 07/12/19 08:06 Dose: 100 mg Admin: 07/11/19 09:24 Dose: 100 mg Admin: 07/10/19 10:19 Dose: Not Given Enoxaparin Sodium (Lovenox) 30 mg SUBCUT Q24H [facility] Last Admin: 07/13/19 12:41 Dose: 30 mg Admin: 07/12/19 13:31 Dose: 30 mg Admin: 07/11/19 12:43 Dose: 30 mg Hydrochlorothiazide (Hydrochlorothiazide) 12.5 mg PO DAILY [facility] Last Admin: 07/13/19 09:53 Dose: 12.5 mg Admin: 07/12/19 08:05 Dose: 12.5 mg Admin: 07/11/19 09:27 Dose: 12.5 mg Admin: 07/10/19 10:20 Dose: Not Given Sodium Chloride (Normal Saline) 1,000 mls @ 0 mls/hr IV ASDIRECTED [facility] Last Admin: 07/11/19 17:58 Dose: 25 mls/hr Losartan Potassium (Cozaar) 50 mg PO DAILY [facility] Last Admin: 07/13/19 09:53 Dose: 50 mg Admin: 07/12/19 08:06 Dose: 50 mg Admin: 07/11/19 09:24 Dose: 50 mg Admin: 07/10/19 10:19 Dose: Not Given Magnesium Hydroxide (Milk Of Magnesia) 30 ml PO Q6H PRN PRN Reason: Constipation Last Admin: 07/12/19 13:31 Dose: 30 ml Admin: 07/11/19 17:48 Dose: 30 ml Morphine Sulfate (Morphine) 2 mg IVPUSH Q2H PRN PRN Reason: Pain (moderate 4-6) Last Admin: 07/10/19 12:48 Dose: 2 mg Admin: 07/10/19 09:40 Dose: 2 mg Ondansetron HCl (Zofran Odt) 4 mg PO Q4H PRN PRN Reason: NAUSEA Oxycodone/Acetaminophen (Percocet 325-5 Mg) 1 - 2 tab PO Q4H PRN PRN Reason: Pain (severe 7-10) Last Admin: 07/13/19 16:28 Dose: 2 tab Admin: 07/13/19 12:40 Dose: 2 tab Admin: 07/13/19 07:58 Dose: 2 tab Admin: 07/12/19 21:13 Dose: 2 tab Admin: 07/11/19 13:36 Dose: 2 tab Admin: 07/11/19 09:36 Dose: 2 tab Admin: 07/11/19 05:38 Dose: 2 tab Potassium Chloride (Potassium Chloride) 10 meq PO BIDMEALS [facility] Last Admin: 07/13/19 09:54 Dose: 10 meq Pramipexole Dihydrochloride (Mirapex) 0.125 mg PO BID [facility] Last Admin: 07/13/19 09:53 Dose: 0.125 mg Admin: 07/12/19 21:08 Dose: 0.125 mg Admin: 07/12/19 08:05 Dose: 0.125 mg Admin: 07/11/19 20:52 Dose: 0.125 mg Admin: 07/11/19 09:24 Dose: 0.125 mg Admin: 07/10/19 21:04 Dose: 0.125 mg Admin: 07/10/19 10:20 Dose: Not Given Admin: 07/09/19 21:34 Dose: 0.125 mg Sodium Chloride (Saline Flush) 10 ml FLUSH ASDIRECTED PRN PRN Reason: Keep Vein Open Trimethoprim/Sulfamethoxazole (Septra Ds) 1 tab PO BID [facility] Verapamil HCl (Calan Sr) 180 mg PO DAILY [facility] Last Admin: 07/13/19 09:53 Dose: 180 mg Admin: 07/12/19 08:06 Dose: 180 mg Admin: 07/11/19 09:24 Dose: 180 mg Admin: 07/10/19 10:19 Dose: Not Given Admin: 07/09/19 21:34 Dose: 180 mg - Assessment Assessment (Free Text/Narrative):: Up in chair today but not ambulating, sleeping off and on most of the day, poor appetite, sensitivities back on UTI - multiple organism sensitive to Bactrim - Plan Plan (Free Text/Narrative):: Encourage activity and PO intake, abx for UTI changed, continue PT/OT as tolerated.
[2019-07-13] MEDS ORDERED: Sulfamethoxazole/Trimethoprim 800-160 MG Tab PO SCH (21:00)
[2019-07-13] MEDS ORDERED: Ciprofloxacin 500 MG Tab PO SCH (21:00)
[2019-07-14] MEDS: Acetaminophen/HYDROcodone 325-5 MG Tab PO PRN ×4 (04:42→19:54)
[2019-07-14] MEDS: Ciprofloxacin 500 MG Tab PO SCH ×2 (07:56→16:02)
[2019-07-14] MEDS: Potassium Chloride 10 MEQ Cap.ER PO SCH ×2 (09:19→16:03)
[2019-07-14] MEDS: Hydrochlorothiazide 12.5 MG Cap PO SCH (09:19)
[2019-07-14] MEDS: Docusate Sodium 100 MG Cap PO SCH (09:20)
[2019-07-14] MEDS: Verapamil 180 MG Tab.ER PO SCH (09:20)
[2019-07-14] MEDS: Cyanocobalamin (Vitamin B12) 1,000 MCG Tab PO SCH (09:20)
[2019-07-14] MEDS: Losartan 50 MG Tab PO SCH (09:20)
[2019-07-14] MEDS: Pramipexole 0.25 MG Tab PO SCH ×2 (09:20→20:27)
[2019-07-14] MEDS: Enoxaparin 30 MG/0.3 ML Syringe SUBCUT SCH (13:59)
[2019-07-15] MEDS: Acetaminophen/HYDROcodone 325-5 MG Tab PO PRN ×3 (01:02→10:14)
[2019-07-15 07:07] VITALS: BP 149/76; PULSE 96
[2019-07-15] MEDS: Ciprofloxacin 500 MG Tab PO SCH (07:44)
[2019-07-15] MEDS: Potassium Chloride 10 MEQ Cap.ER PO SCH (07:44)
[2019-07-15] MEDS: Verapamil 180 MG Tab.ER PO SCH (08:34)
[2019-07-15] MEDS: Pramipexole 0.25 MG Tab PO SCH (08:34)
[2019-07-15] MEDS: Docusate Sodium 100 MG Cap PO SCH (08:35)
[2019-07-15] MEDS: Hydrochlorothiazide 12.5 MG Cap PO SCH (08:35)
[2019-07-15] MEDS: Cyanocobalamin (Vitamin B12) 1,000 MCG Tab PO SCH (08:35)
[2019-07-15] MEDS: Losartan 50 MG Tab PO SCH (08:35)
--- NOTE | 2019-07-16 20:47 | PCM.PN ---
- General Info Date of Service: 07/15/19 Subjective Update: She still complaining of significant pain but feels good enough to go to the correction which is planned for 10:30 this morning. Functional Status: Reports: Pain Controlled - Review of Systems General: Reports: Weakness HEENT: Reports: No Symptoms Pulmonary: Reports: No Symptoms Cardiovascular: Reports: No Symptoms Gastrointestinal: Reports: No Symptoms Genitourinary: Reports: No Symptoms Musculoskeletal: Reports: Leg Pain Skin: Reports: No Symptoms Neurological: Reports: Gait Disturbance Psychiatric: Reports: No Symptoms - Patient Data Vitals - Most Recent: Last Vital Signs Temp 96.8 F 07/15/19 07:00 Pulse 96 07/15/19 07:00 Resp 18 07/15/19 07:00 BP 149/76 H 07/15/19 08:35 Pulse Ox 95 07/15/19 07:00 Weight - Most Recent: 149 lb 9.585 oz Med Orders - Current: Current Medications Discontinued Medications Acetaminophen (Tylenol) 650 mg PO Q4H PRN PRN Reason: Pain Hydrocodone Bitart/Acetaminophen ([place] 325-5 Mg) 1 tab PO Q4H PRN PRN Reason: Pain (moderate 4-6) Last Admin: 07/15/19 10:14 Dose: 1 tab Amoxicillin (Amoxil) 500 mg PO Q8H [facility] Last Admin: 07/13/19 12:41 Dose: 500 mg Bupivacaine HCl/Epinephrine Bitart (Marcaine 0.5%/Epinephrine 1:200,000) Confirm Administered Dose 50 ml .ROUTE .STK-MED ONE Stop: 07/10/19 09:52 Bupivacaine HCl/Epinephrine Bitart (Marcaine 0.5%/Epinephrine 1:200,000) 20 ml INJECT .STK-MED ONE Stop: 07/10/19 11:01 Last Admin: 07/10/19 11:00 Dose: 20 ml Ciprofloxacin (Ciprofloxacin Hcl) 500 mg PO BID [facility] Last Admin: 07/13/19 21:08 Dose: 500 mg Ciprofloxacin (Ciprofloxacin Hcl) 500 mg PO BIDAC [facility] Last Admin: 07/15/19 07:44 Dose: 500 mg Cyanocobalamin (Vitamin B12) 1,000 mcg PO DAILY [facility] Last Admin: 07/15/19 08:35 Dose: 1,000 mcg Docusate Sodium (Colace) 100 mg PO DAILY [facility] Last Admin: 07/15/19 08:35 Dose: 100 mg Enoxaparin Sodium (Lovenox) 30 mg SUBCUT Q24H [facility] Last Admin: 07/14/19 13:59 Dose: 30 mg Fentanyl (Sublimaze) Confirm Administered Dose 100 mcg .ROUTE .STK-MED ONE Stop: 07/10/19 08:33 Hydrochlorothiazide (Hydrochlorothiazide) 12.5 mg PO DAILY [facility] Last Admin: 07/15/19 08:35 Dose: 12.5 mg Potassium Chloride 40 meq/ (Premix) 100 mls @ 25 mls/hr IV ONETIME ONE Stop: 07/10/19 00:29 Last Admin: 07/09/19 22:25 Dose: Not Given Potassium Chloride 20 meq/ (Premix) 100 mls @ 50 mls/hr IV Q2H [facility] Stop: 07/10/19 01:59 Last Admin: 07/10/19 00:54 Dose: 50 mls/hr Sodium Chloride (Normal Saline) 1,000 mls @ 100 mls/hr IV ASDIRECTED [facility] Last Admin: 07/11/19 05:34 Dose: 100 mls/hr Cefazolin Sodium/Dextrose 2 gm (/ Premix) 50 mls @ 100 mls/hr IV ONETIME ONE Stop: 07/10/19 11:29 Last Admin: 07/10/19 11:20 Dose: 100 mls/hr Ampicillin Sodium 1 gm/ Sodium (Chloride) 50 mls @ 100 mls/hr IV ONETIME ONE Stop: 07/10/19 09:59 Last Admin: 07/10/19 09:41 Dose: 100 mls/hr Sodium Chloride (Normal Saline) 1,000 mls @ 0 mls/hr IV ASDIRECTED [facility] Last Admin: 07/11/19 17:58 Dose: 25 mls/hr Influenza Virus Vaccine (Fluzone High-Dose 2019-20 Syringe) 180 mcg IM ONETIME ONE Stop: 07/12/19 09:01 Last Admin: 07/12/19 08:08 Dose: 180 mcg Lidocaine HCl (Xylocaine-Mpf 1%) 2 ml IV ONETIME [facility] Stop: 07/10/19 21:31 Last Admin: 07/09/19 21:36 Dose: 2 ml Lidocaine HCl (Xylocaine 1%) 2 ml INJECT ONETIME ONE Stop: 07/10/19 00:12 Last Admin: 07/10/19 00:43 Dose: Not Given Lidocaine HCl (Xylocaine-Mpf 1%) 2 ml INJECT ONETIME [facility] Stop: 07/10/19 00:41 Last Admin: 07/10/19 00:54 Dose: 2 ml Losartan Potassium (Cozaar) 50 mg PO DAILY [facility] Losartan Potassium (Cozaar) 50 mg PO DAILY [facility] Last Admin: 07/15/19 08:35 Dose: 50 mg Magnesium Hydroxide (Milk Of Magnesia) 30 ml PO Q6H PRN PRN Reason: Constipation Last Admin: 07/12/19 13:31 Dose: 30 ml Midazolam HCl (Versed 1 Mg/Ml) Confirm Administered Dose 2 mg .ROUTE .STK-MED ONE Stop: 07/10/19 09:17 Morphine Sulfate (Morphine) 2 mg IVPUSH Q2H PRN PRN Reason: Pain (moderate 4-6) Last Admin: 07/10/19 12:48 Dose: 2 mg Ondansetron HCl (Zofran Odt) 4 mg PO Q4H PRN PRN Reason: NAUSEA Oxycodone/Acetaminophen (Percocet 325-5 Mg) 1 - 2 tab PO Q4H PRN PRN Reason: Pain (severe 7-10) Last Admin: 07/13/19 16:28 Dose: 2 tab Potassium Chloride (Potassium Chloride) 10 meq PO DAILY [facility] Last Admin: 07/11/19 09:24 Dose: 10 meq Potassium Chloride (Potassium Chloride) 10 meq PO TID [facility] Stop: 07/12/19 23:00 Last Admin: 07/12/19 21:08 Dose: 10 meq Potassium Chloride (Potassium Chloride) 10 meq PO BIDMEALS [facility] Last Admin: 07/15/19 07:44 Dose: 10 meq Pramipexole Dihydrochloride (Mirapex) 0.125 mg PO BID [facility] Last Admin: 07/15/19 08:34 Dose: 0.125 mg Propofol (Diprivan 20 Ml) Confirm Administered Dose 200 mg .ROUTE .STK-MED ONE Stop: 07/10/19 09:17 Sodium Chloride (Saline Flush) 10 ml FLUSH ASDIRECTED PRN PRN Reason: Keep Vein Open Trimethoprim/Sulfamethoxazole (Septra Ds) 1 tab PO BID [facility] Verapamil HCl (Calan Sr) 180 mg PO DAILY [facility] Last Admin: 07/15/19 08:34 Dose: 180 mg - Exam General: Alert, Oriented HEENT: Pupils Equal Neck: Supple Lungs: Clear to Auscultation, Normal Respiratory Effort Cardiovascular: Regular Rate, Regular Rhythm GI/Abdominal Exam: Normal Bowel Sounds, Soft, Non-Tender, No Organomegaly, No Distention, No Abnormal Bruit, No Mass, Pelvis Stable Back Exam: Normal Inspection Extremities: Other (Pain to movement of the right hip) Peripheral Pulses: 1+: Radial (L), Radial (R) Skin: Warm, Dry, Intact Wound/Incisions: Healing Well Neurological: No New Focal Deficit Psy/Mental Status: Alert, Normal Mood - Problem List Review Problem List Initiated/Reviewed/Updated: Yes - Plan Plan:: Assessment/Plan: #1. Right Hip intratrochanteric fracture. Hip replacement stable. #2. HTN: Will continue with Losartan/HCTZ 50/12.5 daily. and Verapamil BP now 149/76 #3. Hx. RA #4. HLD: Diet controlled #5. ARF in the past. presently eGFR>60 @#6. Osteoarthritis#7. Hx of Leukemia: Hb 10.2 with retic count of 0.8, 9.8 wbc. 1 unit blood given. Will check CBC in the morning. #8. Hx. of TIA #9. Hx. RLS: Continue with Pramipexole bid PO. #10. UTI: Culture is Klebsiella pneumoniae. Medically stable to be discharged today
--- NOTE | 2019-07-16 20:52 | PCM.DCSUM1 ---
Discharge Summary - Hospital Course HPI Initial Comments: Admitted after having fallen To Have a Fractured Right Hip. Diagnosis: Stroke: No - Discharge Data Discharge Date: 07/15/19 Discharge Disposition: Admitted As Inpatient 65 Condition: Stable - Referral to Home Health Primary Care Physician: Marv Molina Sr, MD - Patient Summary/Data Consults: Consultations 07/10/19 12:45 Consult to Physical Therapy [PT Evaluation and Treatment] [CONS] Routine Please Evaluate and Treat. PT Reason for Consult: Post op Ortho Surgery Pending Discharge: Yes Discharge Disposition: Half-Way Facility Special Instructions: Partial weight bearing right leg, approx 50% This query below is only for informational purposes and is not editable. Admission Diagnosis/Problem: Hip fracture due to osteoporosis 07/10/19 12:46 Consult to Occupational Therapy [OT Evaluation and Treatment] [CONS] Routine Please Evaluate and Treat. OT Reason for Consult: ADL's Pending Discharge: Yes Discharge Disposition: Half-Way Facility Special Instructions: ADLs and Adpative devices This query below is only for informational purposes and is not editable. Admission Diagnosis/Problem: Hip fracture due to osteoporosis Planned Operative Procedure(s) after DC: right hip pinning Hospital Course: she came into the emergency room and was admitted after falling and x-rays showed a fracture of the right hip. She was seen by Dr. Eric who performed a the repair of the right hip. While in the hospital she was found to have a urinary tract infection which was treated. She had significant pain and was controlled by narcotic medication. - Patient Instructions Diet: Heart Healthy Diet Activity: As Tolerated Activity, Other: she will start physical therapy again while at the senior living - Discharge Plan *PRESCRIPTION DRUG MONITORING PROGRAM REVIEWED*: No *COPY OF PRESCRIPTION DRUG MONITORING REPORT IN PATIENT MARIA DEL CARMEN: No Home Medications: Home Meds Verapamil HCl [Calan Sr] 180 mg PO DAILY 08/29/16 [History] Potassium Chloride 10 meq PO DAILY 10/03/18 [History] Losartan/Hydrochlorothiazide [Losartan-HCTZ 50-12.5 MG] 1 tab PO DAILY 10/11/18 [History] Acetaminophen [Tylenol] 650 mg PO Q4H PRN tablet 10/15/18 [Rx] Docusate Sodium [Colace] 100 mg PO DAILY cap 10/15/18 [Rx] Cyanocobalamin (Vitamin B12) [Vitamin B12] 1 tab PO DAILY 07/09/19 [History] Ondansetron HCl [Ondansetron] 1 tab PO Q4HR PRN 07/09/19 [History] Pramipexole [Mirapex] 1 tab PO BID 07/09/19 [History] Acetaminophen/HYDROcodone [[place] 325-5 MG] 1 tab PO Q6H PRN tablet 07/15/19 [Rx ] Ciprofloxacin [Ciprofloxacin HCl] 500 mg PO BIDAC #6 tablet 07/15/19 [Rx] Patient Handouts: Venous Thromboembolism Prevention Referrals: Marv Molina Sr, MD [Primary Care Provider] - Marv Donovan MD [Physician] - 07/25/19 1:45 pm - Discharge Summary/Plan Comment DC Time >30 min.: Yes Discharge Summary/Plan Comment: Assessment/Plan: #1. Right Hip intratrochanteric fracture. Hip replacement stable. #2. HTN: Will continue with Losartan/HCTZ 50/12.5 daily. and Verapamil BP now 149/76 #3. Hx. RA #4. HLD: Diet controlled #5. ARF in the past. presently eGFR>60 @#6. Osteoarthritis#7. Hx of Leukemia: Hb 10.2 with retic count of 0.8, 9.8 wbc. 1 unit blood given. Will check CBC in the morning. #8. Hx. of TIA #9. Hx. RLS: Continue with Pramipexole bid PO. #10. UTI: Culture is Klebsiella pneumoniae. Medically stable to be discharged today - General Info Date of Service: 07/15/19 Admission Dx/Problem (Free Text: She was complaining of significant pain when she came into the emergency room at the time of leaving she is controlled by narcotic medication Functional Status: Reports: Pain Controlled - Review of Systems General: Reports: Weakness HEENT: Reports: No Symptoms Pulmonary: Reports: No Symptoms Cardiovascular: Reports: No Symptoms Gastrointestinal: Reports: No Symptoms Genitourinary: Reports: No Symptoms Musculoskeletal: Reports: No Symptoms Skin: Reports: No Symptoms Neurological: Reports: No Symptoms Psychiatric: Reports: No Symptoms - Patient Data Vitals - Most Recent: Last Vital Signs Temp 96.8 F 07/15/19 07:00 Pulse 96 07/15/19 07:00 Resp 18 07/15/19 07:00 BP 149/76 H 07/15/19 08:35 Pulse Ox 95 07/15/19 07:00 Weight - Most Recent: 149 lb 9.585 oz Med Orders - Current: Current Medications Discontinued Medications Acetaminophen (Tylenol) 650 mg PO Q4H PRN PRN Reason: Pain Hydrocodone Bitart/Acetaminophen ([place] 325-5 Mg) 1 tab PO Q4H PRN PRN Reason: Pain (moderate 4-6) Last Admin: 07/15/19 10:14 Dose: 1 tab Amoxicillin (Amoxil) 500 mg PO Q8H COUNT INCLUDES THE [facility] Last Admin: 07/13/19 12:41 Dose: 500 mg Bupivacaine HCl/Epinephrine Bitart (Marcaine 0.5%/Epinephrine 1:200,000) Confirm Administered Dose 50 ml .ROUTE .STK-MED ONE Stop: 07/10/19 09:52 Bupivacaine HCl/Epinephrine Bitart (Marcaine 0.5%/Epinephrine 1:200,000) 20 ml INJECT .STK-MED ONE Stop: 07/10/19 11:01 Last Admin: 07/10/19 11:00 Dose: 20 ml Ciprofloxacin (Ciprofloxacin Hcl) 500 mg PO BID COUNT INCLUDES THE [facility] Last Admin: 07/13/19 21:08 Dose: 500 mg Ciprofloxacin (Ciprofloxacin Hcl) 500 mg PO BIDAC COUNT INCLUDES THE [facility] Last Admin: 07/15/19 07:44 Dose: 500 mg Cyanocobalamin (Vitamin B12) 1,000 mcg PO DAILY COUNT INCLUDES THE [facility] Last Admin: 07/15/19 08:35 Dose: 1,000 mcg Docusate Sodium (Colace) 100 mg PO DAILY COUNT INCLUDES THE [facility] Last Admin: 07/15/19 08:35 Dose: 100 mg Enoxaparin Sodium (Lovenox) 30 mg SUBCUT Q24H COUNT INCLUDES THE [facility] Last Admin: 07/14/19 13:59 Dose: 30 mg Fentanyl (Sublimaze) Confirm Administered Dose 100 mcg .ROUTE .STK-MED ONE Stop: 07/10/19 08:33 Hydrochlorothiazide (Hydrochlorothiazide) 12.5 mg PO DAILY COUNT INCLUDES THE [facility] Last Admin: 07/15/19 08:35 Dose: 12.5 mg Potassium Chloride 40 meq/ (Premix) 100 mls @ 25 mls/hr IV ONETIME ONE Stop: 07/10/19 00:29 Last Admin: 07/09/19 22:25 Dose: Not Given Potassium Chloride 20 meq/ (Premix) 100 mls @ 50 mls/hr IV Q2H COUNT INCLUDES THE [facility] Stop: 07/10/19 01:59 Last Admin: 07/10/19 00:54 Dose: 50 mls/hr Sodium Chloride (Normal Saline) 1,000 mls @ 100 mls/hr IV ASDIRECTED COUNT INCLUDES THE [facility] Last Admin: 07/11/19 05:34 Dose: 100 mls/hr Cefazolin Sodium/Dextrose 2 gm (/ Premix) 50 mls @ 100 mls/hr IV ONETIME ONE Stop: 07/10/19 11:29 Last Admin: 07/10/19 11:20 Dose: 100 mls/hr Ampicillin Sodium 1 gm/ Sodium (Chloride) 50 mls @ 100 mls/hr IV ONETIME ONE Stop: 07/10/19 09:59 Last Admin: 07/10/19 09:41 Dose: 100 mls/hr Sodium Chloride (Normal Saline) 1,000 mls @ 0 mls/hr IV ASDIRECTED COUNT INCLUDES THE [facility] Last Admin: 07/11/19 17:58 Dose: 25 mls/hr Influenza Virus Vaccine (Fluzone High-Dose 2019-20 Syringe) 180 mcg IM ONETIME ONE Stop: 07/12/19 09:01 Last Admin: 07/12/19 08:08 Dose: 180 mcg Lidocaine HCl (Xylocaine-Mpf 1%) 2 ml IV ONETIME HENRIQUE Stop: 07/10/19 21:31 Last Admin: 07/09/19 21:36 Dose: 2 ml Lidocaine HCl (Xylocaine 1%) 2 ml INJECT ONETIME ONE Stop: 07/10/19 00:12 Last Admin: 07/10/19 00:43 Dose: Not Given Lidocaine HCl (Xylocaine-Mpf 1%) 2 ml INJECT ONETIME STA Stop: 07/10/19 00:41 Last Admin: 07/10/19 00:54 Dose: 2 ml Losartan Potassium (Cozaar) 50 mg PO DAILY COUNT INCLUDES THE [facility] Losartan Potassium (Cozaar) 50 mg PO DAILY COUNT INCLUDES THE [facility] Last Admin: 07/15/19 08:35 Dose: 50 mg Magnesium Hydroxide (Milk Of Magnesia) 30 ml PO Q6H PRN PRN Reason: Constipation Last Admin: 07/12/19 13:31 Dose: 30 ml Midazolam HCl (Versed 1 Mg/Ml) Confirm Administered Dose 2 mg .ROUTE .STK-MED ONE Stop: 07/10/19 09:17 Morphine Sulfate (Morphine) 2 mg IVPUSH Q2H PRN PRN Reason: Pain (moderate 4-6) Last Admin: 07/10/19 12:48 Dose: 2 mg Ondansetron HCl (Zofran Odt) 4 mg PO Q4H PRN PRN Reason: NAUSEA Oxycodone/Acetaminophen (Percocet 325-5 Mg) 1 - 2 tab PO Q4H PRN PRN Reason: Pain (severe 7-10) Last Admin: 07/13/19 16:28 Dose: 2 tab Potassium Chloride (Potassium Chloride) 10 meq PO DAILY COUNT INCLUDES THE [facility] Last Admin: 07/11/19 09:24 Dose: 10 meq Potassium Chloride (Potassium Chloride) 10 meq PO TID COUNT INCLUDES THE [facility] Stop: 07/12/19 23:00 Last Admin: 07/12/19 21:08 Dose: 10 meq Potassium Chloride (Potassium Chloride) 10 meq PO BIDMEALS COUNT INCLUDES THE [facility] Last Admin: 07/15/19 07:44 Dose: 10 meq Pramipexole Dihydrochloride (Mirapex) 0.125 mg PO BID COUNT INCLUDES THE [facility] Last Admin: 07/15/19 08:34 Dose: 0.125 mg Propofol (Diprivan 20 Ml) Confirm Administered Dose 200 mg .ROUTE .STK-MED ONE Stop: 07/10/19 09:17 Sodium Chloride (Saline Flush) 10 ml FLUSH ASDIRECTED PRN PRN Reason: Keep Vein Open Trimethoprim/Sulfamethoxazole (Septra Ds) 1 tab PO BID COUNT INCLUDES THE [facility] Verapamil HCl (Calan Sr) 180 mg PO DAILY COUNT INCLUDES THE [facility] Last Admin: 07/15/19 08:34 Dose: 180 mg - Exam General: Reports: Alert, Oriented HEENT: Reports: Pupils Equal, Pupils Reactive, EOMI, Mucous Membr. Moist/[place] Neck: Reports: Supple Lungs: Reports: Clear to Auscultation, Normal Respiratory Effort Cardiovascular: Reports: Regular Rate, Regular Rhythm Back Exam: Reports: Normal Inspection, Full Range of Motion Extremities: Leg Pain Skin: Reports: Warm, Dry, Intact Wound/Incisions: Reports: Healing Well Psy/Mental Status: Reports: Alert, Normal Affect, Normal Mood
== END 2019-07-15 10:55 | disposition critical access hospital (66) | DRG 481 ==
LOC: JP.ED 17:10 → JP.ICU 20:00 → JP.MS 07-10 13:40
PROVIDERS: ADMIT Internal Medicine; ATTEND Internal Medicine
PROC: 0QS636Z Reposition Right Upper Femur with Intramedullary Internal Fixation Device, Percutaneous Approach (ICD-10-PCS; principal; 2019-07-10)
PROC: 3E02340 Introduction of Influenza Vaccine into Muscle, Percutaneous Approach (ICD-10-PCS; 2019-07-10)
PROC: 30233N1 Transfusion of Nonautologous Red Blood Cells into Peripheral Vein, Percutaneous Approach (ICD-10-PCS; 2019-07-10)
DX: S72.144A Nondisplaced intertrochanteric fracture of right femur, initial encounter for closed fracture (principal); S72.141A Displaced intertrochanteric fracture of right femur, initial encounter for closed fracture; N39.0 Urinary tract infection, site not specified; D62 Acute posthemorrhagic anemia; I10 Essential (primary) hypertension; E78.5 Hyperlipidemia, unspecified; M19.90 Unspecified osteoarthritis, unspecified site; G25.81 Restless legs syndrome; B96.1 Klebsiella pneumoniae [K. pneumoniae] as the cause of diseases classified elsewhere; H54.7 Unspecified visual loss; K59.09 Other constipation; M81.0 Age-related osteoporosis without current pathological fracture; F03.90 Unspecified dementia, unspecified severity, without behavioral disturbance, psychotic disturbance, mood disturbance, and anxiety; M06.9 Rheumatoid arthritis, unspecified; Z96.642 Presence of left artificial hip joint; Z85.6 Personal history of leukemia; Z79.899 Other long term (current) drug therapy; Z87.891 Personal history of nicotine dependence; Z86.73 Personal history of transient ischemic attack (TIA), and cerebral infarction without residual deficits; Z88.2 Allergy status to sulfonamides; Z90.89 Acquired absence of other organs; Z23 Encounter for immunization; W19.XXXA Unspecified fall, initial encounter
CPT/HCPCS: 36415; 36430; 51702; 71045; 73502-RT; 80048; 80053; 81001; 85025; 85027; 85045; 86850; 86900; 86901; 86920; 86922; 87086; 87186; 90662; 93005; 97110-GP; 97162-GP; 97165-GO; 97530-GP; 97535-GP; 99284; 99284-25; A9270-GY; C1713; C1776; G0008; J0290; J0690; J1650; J2001; J2250; J2270; J2704; J3010; J3480; J3490; J7030; J7050; P9016

== ENCOUNTER 2019-07-22 19:36 | Observation (INO) | payer BC, MEDICARE, OTHER ==
--- NOTE | 2019-07-22 20:09 | CRLCT ---
INDICATION: Left-sided weakness. COMPARISON: 03/07/2019. TECHNIQUE: Noncontrast CT of the head. FINDINGS: Mild generalized volume loss. Stable patchy and confluent low-attenuation change within the white matter of both cerebral hemispheres consistent with chronic deep white matter small vessel ischemic changes. Stable old lacunar infarcts of the bilateral basal ganglia. No intracranial hemorrhage, acute infarct, mass effect, or fracture. No midline shift. No abnormal ventricular dilatation. Normal calvarium and skull base. Visualized paranasal sinuses and mastoid air cells are clear. There is pneumatization of the right sphenoid wing which is a normal variant. Visualized orbits are unremarkable. IMPRESSION: 1. No acute intracranial abnormality. 2. Mild generalized cerebral volume loss. Chronic deep white matter small vessel ischemic changes. Stable chronic lacunar infarcts of the bilateral basal ganglia 3. No interval change Dictated by Asael Sibley MD @ 07/22/2019 8:08:47 PM Please note that all CT scans at this facility use dose modulation, iterative reconstruction, and/or weight-based dosing when appropriate to reduce radiation dose to as low as reasonably achievable. Dictated by: Asael Sibley MD @ 07/22/2019 20:08:56 (Electronically Signed)
--- NOTE | 2019-07-22 20:34 | PCM.HP.2 ---
H&P History of Present Illness - General Date of Service: 07/22/19 Source of Information: Family, Penitentiary Records History Limitations: Reports: Altered Mental Status - History of Present Illness Initial Comments - Free Text/Narative: I was called to see [facility] at the jail because of a mental change observed today. Mentally she was not coherent all day. Her also agreed with her mental change. She recently had a fx hip and was repaired. She has been on Lovenox. Onset of Symptoms: Reports: Today Associated Symptoms: Reports: Confusion - Related Data Allergies/Adverse Reactions: Allergies Allergy/AdvReac Type Severity Reaction Status Date / Time Sulfa (Sulfonamide Allergy Swelling Verified 07/22/19 19:57 Antibiotics) Home Medications: Home Meds Verapamil HCl [Calan Sr] 180 mg PO DAILY 08/29/16 [History] Acetaminophen [Tylenol] 650 mg PO Q4H PRN tablet 10/15/18 [Rx] Ondansetron HCl [Ondansetron] 1 tab PO Q4HR PRN 07/09/19 [History] Pramipexole [Mirapex] 1 tab PO BID 07/09/19 [History] Acetaminophen/HYDROcodone [[place] 325-5 MG] 1 tab PO Q6H PRN tablet 07/15/19 [Rx ] Enoxaparin [Lovenox] 30 mg SUBCUT DAILY 07/22/19 [History] Potassium Chloride 1 tab PO DAILY 07/22/19 [History] Past Medical History HEENT History: Reports: Impaired Vision Cardiovascular History: Reports: Hypertension Other Cardiovascular History: congenital septal defect-repaired Gastrointestinal History: Reports: Chronic Constipation, Chronic Diarrhea, Other (See Below) Other Gastrointestinal History: hx of diarrhea [employer] History: Reports: Musculoskeletal History: Reports: Osteoporosis, RA, Other (See Below) Other Musculoskeletal History: bursitis Neurological History: Reports: TIA Psychiatric History: Reports: Dementia Other Psychiatric History: not diagnosed Endocrine/Metabolic History: Reports: Osteoporosis Oncologic (Cancer) History: Reports: Leukemia Other Oncologic History: acute myoblastic leukemia - Infectious Disease History Infectious Disease History: Reports: Chicken Pox - Past Surgical History HEENT Surgical History: Reports: Tonsillectomy Cardiovascular Surgical History: Reports: Percutaneous Transluminal Angioplasty GI Surgical History: Reports: Appendectomy, Colon, Colonoscopy Musculoskeletal Surgical History: Reports: Hip Replacement Other Musculoskeletal Surgeries/Procedures:: left hip replacement, broke right hip or femur 2018 Social & Family History - Family History Family Medical History: Noncontributory - Tobacco Use Smoking Status *Q: Unknown Ever Smoked - Caffeine Use Caffeine Use: Reports: Coffee H&P Review of Systems - Review of Systems: Review Of Systems: See Below General: Reports: Weakness HEENT: Reports: Visual Changes Pulmonary: Reports: No Symptoms Cardiovascular: Reports: No Symptoms Gastrointestinal: Reports: No Symptoms Genitourinary: Reports: No Symptoms Musculoskeletal: Reports: Leg Pain Skin: Reports: No Symptoms Psychiatric: Reports: Confusion Exam - Exam Exam: See Below - Vital Signs Vital Signs: Last Vital Signs Temp 98.1 F 07/22/19 20:06 Pulse 73 07/22/19 20:12 Resp 19 07/22/19 20:12 BP 102/64 07/22/19 20:12 Pulse Ox 97 07/22/19 20:12 Weight: 140 lb 0.002 oz - Exam General: Lethargic HEENT: Other (left eye fixed to the left) Lungs: Clear to Auscultation, Normal Respiratory Effort Cardiovascular: Regular Rate, Regular Rhythm GI/Abdominal Exam: Normal Bowel Sounds, Soft, Non-Tender, No Organomegaly, No Distention, No Abnormal Bruit, No Mass, Pelvis Stable Peripheral Pulses: 1+: Radial (L), Radial (R) Neuro Extensive - Mental Status: Nl Response to Commands Neuro Extensive - Motor, Sensory, Reflexes: Other (left eye fixed to the left lateral side.) DTR: 0: Bicep (L), 2+: Bicep (R) Psychiatric: Other (confused) Problem List Initiated/Reviewed/Updated: Yes Assessment/Plan Comment:: Assessment/Plan: #1. CVA: CT of the head was done and also spoke with Dr. Sibley who read the CT/ The report says No acute intracranial abnormality. Mild tgeneralized cerebral volume loss. Chronic deep white matter small vessel ischemic changes. Stable chronic lacunar infarcts of the bilateral basal ganglia. No interval change when compared to a CT of 03/07/2019. I will send back to the [place] and do a MRI tomorrow. Blood work is also pending. #2. S/P hip fx with repair. #3. HTN: #4. Leukemia
[2019-07-22] MEDS ORDERED: Ondansetron 4 MG Tab.DIS PO PRN (21:44)
[2019-07-22] MEDS ORDERED: Acetaminophen 325 MG Tab PO PRN (21:44)
[2019-07-22] MEDS ORDERED: Acetaminophen/HYDROcodone 325-5 MG Tab PO PRN (21:44)
[2019-07-22] MEDS: Morphine 2 MG/ML Syringe IVPUSH PRN (22:57)
[2019-07-22] MEDS: Potassium Chloride 20 MEQ in Premix Bag 1 BAG IV SCH (22:58)
[2019-07-22] MEDS: Dextrose 5%-0.9% NaCl 1,000 ML IV SCH (22:58)
[2019-07-22] MEDS: Lidocaine 1% PF 2 ML SDV IV SCH (23:00)
[2019-07-23] MEDS ORDERED: Lidocaine 1% 2 ML ONE (00:53)
[2019-07-23] MEDS: Potassium Chloride 20 MEQ in Premix Bag 1 BAG IV SCH ×3 (01:01→05:19)
[2019-07-23] MEDS: Lidocaine 1% PF 2 ML SDV IV SCH ×3 (01:04→05:19)
[2019-07-23] MEDS: Verapamil 180 MG Tab.ER PO SCH (08:34)
[2019-07-23] MEDS: Pramipexole 0.25 MG Tab PO SCH ×2 (08:34→20:14)
[2019-07-23] MEDS: Enoxaparin 30 MG/0.3 ML Syringe SUBCUT SCH (08:34)
[2019-07-23] MEDS: Potassium Chloride 10 MEQ Cap.ER PO SCH ×3 (08:35→20:14)
[2019-07-23] MEDS: Morphine 2 MG/ML Syringe IVPUSH PRN (09:17)
[2019-07-23] MEDS: Dextrose 5%-0.9% NaCl 1,000 ML IV SCH (11:56)
[2019-07-23] MEDS ORDERED: Diazepam 5 MG Tab PO ONE (13:45)
--- NOTE | 2019-07-23 19:45 | PCM.PN ---
- General Info Date of Service: 07/23/19 Functional Status: Reports: Pain Controlled - Review of Systems General: Reports: Weakness HEENT: Reports: Visual Changes Pulmonary: Reports: No Symptoms Cardiovascular: Reports: No Symptoms Gastrointestinal: Reports: No Symptoms Genitourinary: Reports: No Symptoms Musculoskeletal: Reports: No Symptoms Skin: Reports: No Symptoms Neurological: Reports: Confusion, Difficulty Walking Psychiatric: Reports: Confusion - Patient Data Vitals - Most Recent: Last Vital Signs Temp 96.5 F 07/23/19 15:12 Pulse 71 07/23/19 15:12 Resp 16 07/23/19 15:12 BP 124/52 L 07/23/19 15:12 Pulse Ox 94 L 07/23/19 15:12 Weight - Most Recent: 136 lb 14.4 oz I&O - Last 24 Hours: Intake & Output 07/23/19 07/23/19 07/23/19 06:59 14:59 22:59 Intake Total 888 Output Total 300 Balance 888 -300 Lab Results Last 24 Hours: Laboratory Results - last 24 hr 07/22/19 07/22/19 07/22/19 Range/Units 20:57 20:57 21:08 WBC 9.0 (4.5-11.0) K/uL RBC 3.21 L (3.30-5.50) M/uL Hgb 10.1 L (12.0-15.0) g/dL Hct 31.2 L (36.0-48.0) % MCV 97 (80-98) fL MCH 32 H (27-31) pg MCHC 32 (32-36) % Plt Count 361 (150-400) K/uL Neut % (Auto) 72 H (36-66) % Lymph % (Auto) 14 L (24-44) % Sharkey % (Auto) 13 H (2-6) % Eos % (Auto) 2 (2-4) % Baso % (Auto) 0 (0-1) % Sodium 139 L (140-148) mmol/L Potassium 2.8 L* (3.6-5.2) mmol/L Chloride 103 (100-108) mmol/L Carbon Dioxide 28 (21-32) mmol/L Anion Gap 10.8 (5.0-14.0) mmol/L BUN 14 (7-18) mg/dL Creatinine 0.8 (0.6-1.0) mg/dL Est Cr Clr Drug Dosing 46.26 mL/min Estimated GFR (MDRD) > 60 (>60) Glucose 92 (74-106) mg/dL Calcium 8.8 (8.5-10.1) mg/dL Total Bilirubin 0.7 D (0.2-1.0) mg/dL AST 24 (15-37) U/L ALT 17 (12-78) U/L Alkaline Phosphatase 133 H (46-116) U/L Total Protein 5.7 L (6.4-8.2) g/dL Albumin 2.5 L (3.4-5.0) g/dL Globulin 3.2 (2.3-3.5) g/dL Albumin/Globulin Ratio 0.8 L (1.2-2.2) Urine Color Yellow (YELLOW) Urine Appearance Slightly cloudy A (CLEAR) Urine pH 7.0 (5.0-8.0) Ur Specific [place] 1.020 (1.008-1.030) Urine Protein Negative (NEGATIVE) mg/dL Urine Glucose (UA) Negative (NEGATIVE) mg/dL Urine Ketones Negative (NEGATIVE) mg/dL Urine Occult Blood Negative (NEGATIVE) Urine Nitrite Negative (NEGATIVE) Urine Bilirubin Negative (NEGATIVE) Urine Urobilinogen 1.0 (0.2-1.0) EU/dL Ur Leukocyte Esterase Negative (NEGATIVE) Urine RBC Not seen (0-5) Urine WBC 0-5 (0-5) Ur Epithelial Cells Not seen Amorphous Sediment Moderate Urine Bacteria Few Urine Mucus Rare Urine Other See note 07/23/19 Range/Units 04:50 WBC (4.5-11.0) K/uL RBC (3.30-5.50) M/uL Hgb (12.0-15.0) g/dL Hct (36.0-48.0) % MCV (80-98) fL MCH (27-31) pg MCHC (32-36) % Plt Count (150-400) K/uL Neut % (Auto) (36-66) % Lymph % (Auto) (24-44) % Sharkey % (Auto) (2-6) % Eos % (Auto) (2-4) % Baso % (Auto) (0-1) % Sodium 139 L (140-148) mmol/L Potassium 4.1 (3.6-5.2) mmol/L Chloride 106 (100-108) mmol/L Carbon Dioxide 28 (21-32) mmol/L Anion Gap 9.1 (5.0-14.0) mmol/L BUN 12 (7-18) mg/dL Creatinine 0.7 (0.6-1.0) mg/dL Est Cr Clr Drug Dosing 52.87 mL/min Estimated GFR (MDRD) > 60 (>60) Glucose 98 (74-106) mg/dL Calcium 8.7 (8.5-10.1) mg/dL Total Bilirubin (0.2-1.0) mg/dL AST (15-37) U/L ALT (12-78) U/L Alkaline Phosphatase (46-116) U/L Total Protein (6.4-8.2) g/dL Albumin (3.4-5.0) g/dL Globulin (2.3-3.5) g/dL Albumin/Globulin Ratio (1.2-2.2) Urine Color (YELLOW) Urine Appearance (CLEAR) Urine pH (5.0-8.0) Ur Specific [place] (1.008-1.030) Urine Protein (NEGATIVE) mg/dL Urine Glucose (UA) (NEGATIVE) mg/dL Urine Ketones (NEGATIVE) mg/dL Urine Occult Blood (NEGATIVE) Urine Nitrite (NEGATIVE) Urine Bilirubin (NEGATIVE) Urine Urobilinogen (0.2-1.0) EU/dL Ur Leukocyte Esterase (NEGATIVE) Urine RBC (0-5) Urine WBC (0-5) Ur Epithelial Cells Amorphous Sediment Urine Bacteria Urine Mucus Urine Other Med Orders - Current: Current Medications Acetaminophen (Tylenol) 650 mg PO Q4H PRN PRN Reason: Pain Last Admin: 07/23/19 17:54 Dose: 650 mg Hydrocodone Bitart/Acetaminophen ([place] 325-5 Mg) 1 tab PO Q6H PRN PRN Reason: Pain (moderate 4-6) Enoxaparin Sodium (Lovenox) 30 mg SUBCUT DAILY [facility] Last Admin: 07/23/19 08:34 Dose: 30 mg Dextrose/Sodium Chloride (Dextrose 5%-Normal Saline) 1,000 mls @ 75 mls/hr IV ASDIRECTED [facility] [place] Last Admin: 07/23/19 11:56 Dose: 75 mls/hr Lidocaine HCl (Xylocaine-Mpf 1%) 2 ml IV ONETIME [facility] [place] Stop: 07/25/19 22:16 Last Admin: 07/23/19 05:19 Dose: 2 ml Morphine Sulfate (Morphine) 2 mg IVPUSH Q2H PRN PRN Reason: Pain Last Admin: 07/23/19 09:17 Dose: 2 mg Ondansetron HCl (Zofran Odt) 4 mg PO Q4H PRN PRN Reason: Nausea Potassium Chloride (Potassium Chloride) 10 meq PO TID [facility] [place] Last Admin: 07/23/19 17:52 Dose: 10 meq Pramipexole Dihydrochloride (Mirapex) 0.125 mg PO BID [facility] [place] Last Admin: 07/23/19 08:34 Dose: 0.125 mg Verapamil HCl (Calan Sr) 180 mg PO DAILY [facility] [place] Last Admin: 07/23/19 08:34 Dose: 180 mg Discontinued Medications Diazepam (Valium.) 10 mg PO ONETIME ONE Stop: 07/23/19 13:46 Last Admin: 07/23/19 14:01 Dose: 10 mg Potassium Chloride 20 meq/ (Premix) 100 mls @ 50 mls/hr IV Q2H [facility] [place] Stop: 07/23/19 05:59 Last Admin: 07/23/19 05:19 Dose: 50 mls/hr Lidocaine HCl (Xylocaine-Mpf 1%) Confirm Administered Dose 2 mls @ as directed .ROUTE .STK-MED ONE Stop: 07/23/19 00:54 Last Admin: 07/23/19 01:04 Dose: Not Given Lidocaine HCl (Xylocaine-Mpf 1%) Confirm Administered Dose 5 ml .ROUTE .STK-MED ONE Stop: 07/23/19 03:04 Last Admin: 07/23/19 03:11 Dose: Not Given - Exam General: Alert, Oriented HEENT: Pupils Equal, Pupils Reactive, EOMI, Mucous Membr. Moist/[place] Neck: Supple Lungs: Clear to Auscultation, Normal Respiratory Effort Cardiovascular: Regular Rate, Regular Rhythm GI/Abdominal Exam: Normal Bowel Sounds, Soft, Non-Tender, No Organomegaly, No Distention, No Abnormal Bruit, No Mass, Pelvis Stable Extremities: Leg Pain Peripheral Pulses: 1+: Brachial (L), Brachial (R) Skin: Warm, Dry, Intact Wound/Incisions: Healing Well Neurological: Other (Left eye fixed to the left lat. aspect.) - Problem List Review Problem List Initiated/Reviewed/Updated: Yes - My Orders Last 24 Hours: My Active Orders 07/22/19 21:09 CULTURE URINE [RM] Routine 07/22/19 21:17 Ready for Discharge [RC] PER UNIT ROUTINE 07/22/19 21:38 Patient Status [ADT] Routine Oxygen Therapy [RC] PRN VTE/DVT Education [RC] Per Unit Routine Vital Signs [RC] Q4H Resuscitation Status Routine 07/22/19 21:44 Acetaminophen [Tylenol] 650 mg PO Q4H PRN Acetaminophen/HYDROcodone [[place] 325-5 MG] 1 tab PO Q6H PRN Ondansetron [Zofran ODT] 4 mg PO Q4H PRN 07/22/19 22:15 Lidocaine 1% [Xylocaine-MPF 1%] 2 ml IV ONETIME 07/22/19 22:31 Morphine 2 mg IVPUSH Q2H PRN 07/22/19 22:45 Dextrose 5%-0.9% NaCl [Dextrose 5%-Normal Saline] 1,000 ml IV ASDIRECTED 07/23/19 09:00 Enoxaparin [Lovenox] 30 mg SUBCUT DAILY Potassium Chloride 10 meq PO TID Pramipexole [Mirapex] 0.125 mg PO BID Verapamil [Calan SR] 180 mg PO DAILY 07/23/19 Breakfast Regular Diet [DIET] - Plan Plan:: Assessment/Plan: #1. CVA: CT of the head was done and also spoke with Dr. Sibley who read the CT/ The report says No acute intracranial abnormality. Mild tgeneralized cerebral volume loss. Chronic deep white matter small vessel ischemic changes. Stable chronic lacunar infarcts of the bilateral basal ganglia. No interval change when compared to a CT of 03/07/2019. I will send back to the [place] and do a MRI tomorrow. K 4.1 this morning. Tried to get a MRI twice today and she wouldn't hold still enough to compete the exam. #2. S/P hip fx with repair. #3. HTN: 124/52 #4. Leukemia: stable at the present time. Plan to send to the [place] tomorrow.
[2019-07-24] MEDS: Dextrose 5%-0.9% NaCl 1,000 ML IV SCH (04:49)
[2019-07-24] MEDS: Potassium Chloride 10 MEQ Cap.ER PO SCH (09:25)
[2019-07-24] MEDS: Pramipexole 0.25 MG Tab PO SCH (09:25)
[2019-07-24] MEDS: Verapamil 180 MG Tab.ER PO SCH (09:26)
[2019-07-24] MEDS: Enoxaparin 30 MG/0.3 ML Syringe SUBCUT SCH (09:26)
[2019-07-24 10:41] VITALS: BP 142/53; PULSE 83
--- NOTE | 2019-07-24 18:58 | PCM.PN ---
- General Info Date of Service: 07/24/19 Subjective Update: Kasey is confused her ability now she can even get out of bed by herself. She requires total left in order to get up out of bed. She is confused she doesn't see well. - Review of Systems General: Reports: Weakness HEENT: Reports: Visual Changes Pulmonary: Reports: Shortness of Breath Cardiovascular: Reports: No Symptoms Gastrointestinal: Reports: No Symptoms Genitourinary: Reports: No Symptoms Musculoskeletal: Reports: No Symptoms Skin: Reports: No Symptoms Neurological: Reports: Confusion, Weakness Psychiatric: Reports: Confusion - Patient Data Vitals - Most Recent: Last Vital Signs Temp 96.1 F 07/24/19 10:39 Pulse 83 07/24/19 10:39 Resp 18 07/24/19 10:39 BP 142/53 H 07/24/19 10:39 Pulse Ox 97 07/24/19 10:39 Weight - Most Recent: 136 lb 14.4 oz I&O - Last 24 Hours: Intake & Output 07/24/19 07/24/19 07/24/19 06:59 14:59 22:59 Intake Total 1184 70 Balance 1184 70 Lab Results Last 24 Hours: Laboratory Results - last 24 hr 07/24/19 07/24/19 Range/Units 05:45 05:45 WBC 7.3 (4.5-11.0) K/uL RBC 3.02 L (3.30-5.50) M/uL Hgb 9.5 L (12.0-15.0) g/dL Hct 30.1 L (36.0-48.0) % MCV 100 H (80-98) fL MCH 32 H (27-31) pg MCHC 32 (32-36) % Plt Count 335 (150-400) K/uL Neut % (Auto) 70 H (36-66) % Lymph % (Auto) 13 L (24-44) % [place] % (Auto) 13 H (2-6) % Eos % (Auto) 4 (2-4) % Baso % (Auto) 0 (0-1) % Sodium 141 (140-148) mmol/L Potassium 4.1 (3.6-5.2) mmol/L Chloride 108 (100-108) mmol/L Carbon Dioxide 25 (21-32) mmol/L Anion Gap 7.6 (5.0-14.0) mmol/L BUN 9 (7-18) mg/dL Creatinine 0.6 (0.6-1.0) mg/dL Est Cr Clr Drug Dosing 61.68 mL/min Estimated GFR (MDRD) > 60 (>60) Glucose 101 (74-106) mg/dL Calcium 8.3 L (8.5-10.1) mg/dL Benito Results Last 24 Hours: Microbiology 07/22/19 21:09 Urine Culture - Preliminary Urine, Clean Catch NO GROWTH AFTER 1 DAY Med Orders - Current: Current Medications Discontinued Medications Acetaminophen (Tylenol) 650 mg PO Q4H PRN PRN Reason: Pain Last Admin: 07/23/19 17:54 Dose: 650 mg Hydrocodone Bitart/Acetaminophen (Ferdinand 325-5 Mg) 1 tab PO Q6H PRN PRN Reason: Pain (moderate 4-6) Last Admin: 07/24/19 09:25 Dose: 1 tab Diazepam (Valium.) 10 mg PO ONETIME ONE Stop: 07/23/19 13:46 Last Admin: 07/23/19 14:01 Dose: 10 mg Enoxaparin Sodium (Lovenox) 30 mg SUBCUT DAILY [facility] Last Admin: 07/24/19 09:26 Dose: Not Given Potassium Chloride 20 meq/ (Premix) 100 mls @ 50 mls/hr IV Q2H [facility] Stop: 07/23/19 05:59 Last Admin: 07/23/19 05:19 Dose: 50 mls/hr Dextrose/Sodium Chloride (Dextrose 5%-Normal Saline) 1,000 mls @ 75 mls/hr IV ASDIRECTED [facility] Last Admin: 07/24/19 04:49 Dose: 75 mls/hr Lidocaine HCl (Xylocaine-Mpf 1%) Confirm Administered Dose 2 mls @ as directed .ROUTE .STK-MED ONE Stop: 07/23/19 00:54 Last Admin: 07/23/19 01:04 Dose: Not Given Lidocaine HCl (Xylocaine-Mpf 1%) 2 ml IV ONETIME [facility] Stop: 07/25/19 22:16 Last Admin: 07/23/19 05:19 Dose: 2 ml Lidocaine HCl (Xylocaine-Mpf 1%) Confirm Administered Dose 5 ml .ROUTE .STK-MED ONE Stop: 07/23/19 03:04 Last Admin: 07/23/19 03:11 Dose: Not Given Morphine Sulfate (Morphine) 2 mg IVPUSH Q2H PRN PRN Reason: Pain Last Admin: 07/23/19 09:17 Dose: 2 mg Ondansetron HCl (Zofran Odt) 4 mg PO Q4H PRN PRN Reason: Nausea Potassium Chloride (Potassium Chloride) 10 meq PO TID [facility] Last Admin: 07/24/19 09:25 Dose: 10 meq Pramipexole Dihydrochloride (Mirapex) 0.125 mg PO BID [facility] Last Admin: 07/24/19 09:25 Dose: 0.125 mg Verapamil HCl (Calan Sr) 180 mg PO DAILY [facility] Last Admin: 07/24/19 09:26 Dose: 180 mg - Exam General: Mild Distress, Lethargic HEENT: Other (the left is fixed to the lateral aspect.) Lungs: Clear to Auscultation, Normal Respiratory Effort Cardiovascular: Regular Rate, Regular Rhythm GI/Abdominal Exam: Normal Bowel Sounds, Soft, Non-Tender, No Organomegaly, No Distention, No Abnormal Bruit, No Mass, Pelvis Stable Extremities: Joint Swelling, Leg Pain - Problem List Review Problem List Initiated/Reviewed/Updated: Yes - Plan Plan:: Assessment/Plan: #1. CVA: CT of the head was done and also spoke with Dr. Sibley who read the CT/ The report says No acute intracranial abnormality. Mild tgeneralized cerebral volume loss. Chronic deep white matter small vessel ischemic changes. Stable chronic lacunar infarcts of the bilateral basal ganglia. No interval change when compared to a CT of 03/07/2019. I will send back to the [facility] and do a MRI today. K 4.1 this morning. She will be joining hospice. Her white blood count is 7.3 with hemoglobin 9.5 daily, 335,000. Sodium 141 potassium 4.1. The creatinine 0.6 with BUN 9.0. #2. S/P hip fx with repair. #3. HTN: 124/52 #4. Leukemia: stable at the present time. Plan to send to the [facility] today.
--- NOTE | 2019-07-24 19:04 | PCM.DCSUM1 ---
Discharge Summary - Hospital Course Brief History: Ruby was admitted from the intermediate with a sudden change in her mental condition with fixed left eye to the lateral aspect. Diagnosis: Stroke: Yes Modified [place] Scale: Sev.Disablility Bedridden,Incont.&Require Constant Nrsg.Care/Attention Modified [place] Scale Score: 5 - Discharge Data Discharge Date: 07/24/19 Discharge Disposition: DC/Tfer to Intermediate Care 63 Condition: Good - Referral to Home Health Primary Care Physician: Marv Molina Sr, MD - Patient Summary/Data Hospital Course: Ruby was brought to the emergency room and had a CT scan initially which was unremarkable showing no structural changes or evidence of a bleed and when compared to a previous CAT scan showed no significant change. She was over the 3-4 hours change since this happened neurologically. her potassium initially was 2.8 and she couldn't swallow at that time. She was admitted to Hospital given IV potassium and potassium came up to 4.1 by the morning and remained at 4.1 the day of discharge. 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 She is being transferred back to the intermediate the family does not want anything else done at the present time we tried to get an MRI but she wouldn't hold still for this within gave her Valium again was unsuccessful. The family requested no more testing done. She is being discharged back to the intermediate and hospice care - Discharge Plan *PRESCRIPTION DRUG MONITORING PROGRAM REVIEWED*: No *COPY OF PRESCRIPTION DRUG MONITORING REPORT IN PATIENT MARIA DEL CARMEN: No Home Medications: Home Meds Verapamil HCl [Calan Sr] 180 mg PO DAILY 08/29/16 [History] Acetaminophen [Tylenol] 650 mg PO Q4H PRN tablet 10/15/18 [Rx] Ondansetron HCl [Ondansetron] 1 tab PO Q4HR PRN 07/09/19 [History] Pramipexole [Mirapex] 1 tab PO BID 07/09/19 [History] Acetaminophen/HYDROcodone [Cleveland 325-5 MG] 1 tab PO Q6H PRN tablet 07/15/19 [Rx ] Potassium Chloride 1 tab PO DAILY 07/22/19 [History] Forms: ED Department Discharge Referrals: Marv Molina Sr, MD [Primary Care Provider] - - Discharge Summary/Plan Comment DC Time >30 min.: No Discharge Summary/Plan Comment: Assessment/Plan: #1. CVA: CT of the head was done and also spoke with Dr. Sibley who read the CT/ The report says No acute intracranial abnormality. Mild tgeneralized cerebral volume loss. Chronic deep white matter small vessel ischemic changes. Stable chronic lacunar infarcts of the bilateral basal ganglia. No interval change when compared to a CT of 03/07/2019. I will send back to the [facility] and do a MRI today. K 4.1 this morning. She will be joining hospice. Her white blood count is 7.3 with hemoglobin 9.5 daily, 335,000. Sodium 141 potassium 4.1. The creatinine 0.6 with BUN 9.0. #2. S/P hip fx with repair. #3. HTN: 124/52 #4. Leukemia: stable at the present time. Plan to send to the [facility] today. - General Info Date of Service: 07/24/19 Functional Status: Reports: Pain Controlled - Review of Systems General: Reports: Weakness HEENT: Reports: Visual Changes Pulmonary: Reports: No Symptoms Cardiovascular: Reports: No Symptoms Gastrointestinal: Reports: No Symptoms Genitourinary: Reports: No Symptoms Musculoskeletal: Reports: No Symptoms Skin: Reports: No Symptoms Neurological: Reports: Confusion Psychiatric: Reports: Confusion - Patient Data Vitals - Most Recent: Last Vital Signs Temp 96.1 F 07/24/19 10:39 Pulse 83 07/24/19 10:39 Resp 18 07/24/19 10:39 BP 142/53 H 07/24/19 10:39 Pulse Ox 97 07/24/19 10:39 Weight - Most Recent: 136 lb 14.4 oz I&O - Last 24 hours: Intake & Output 07/24/19 07/24/19 07/24/19 06:59 14:59 22:59 Intake Total 1184 70 Balance 1184 70 Lab Results - Last 24 hrs: Laboratory Results - last 24 hr 07/24/19 07/24/19 Range/Units 05:45 05:45 WBC 7.3 (4.5-11.0) K/uL RBC 3.02 L (3.30-5.50) M/uL Hgb 9.5 L (12.0-15.0) g/dL Hct 30.1 L (36.0-48.0) % MCV 100 H (80-98) fL MCH 32 H (27-31) pg MCHC 32 (32-36) % Plt Count 335 (150-400) K/uL Neut % (Auto) 70 H (36-66) % Lymph % (Auto) 13 L (24-44) % Haines % (Auto) 13 H (2-6) % Eos % (Auto) 4 (2-4) % Baso % (Auto) 0 (0-1) % Sodium 141 (140-148) mmol/L Potassium 4.1 (3.6-5.2) mmol/L Chloride 108 (100-108) mmol/L Carbon Dioxide 25 (21-32) mmol/L Anion Gap 7.6 (5.0-14.0) mmol/L BUN 9 (7-18) mg/dL Creatinine 0.6 (0.6-1.0) mg/dL Est Cr Clr Drug Dosing 61.68 mL/min Estimated GFR (MDRD) > 60 (>60) Glucose 101 (74-106) mg/dL Calcium 8.3 L (8.5-10.1) mg/dL [id number] Results - Last 24 hrs: Microbiology 07/22/19 21:09 Urine Culture - Preliminary Urine, Clean Catch NO GROWTH AFTER 1 DAY Med Orders - Current: Current Medications Discontinued Medications Acetaminophen (Tylenol) 650 mg PO Q4H PRN PRN Reason: Pain Last Admin: 07/23/19 17:54 Dose: 650 mg Hydrocodone Bitart/Acetaminophen (C[place] 325-5 Mg) 1 tab PO Q6H PRN PRN Reason: Pain (moderate 4-6) Last Admin: 07/24/19 09:25 Dose: 1 tab Diazepam (Valium.) 10 mg PO ONETIME ONE Stop: 07/23/19 13:46 Last Admin: 07/23/19 14:01 Dose: 10 mg Enoxaparin Sodium (Lovenox) 30 mg SUBCUT DAILY [facility] Last Admin: 07/24/19 09:26 Dose: Not Given Potassium Chloride 20 meq/ (Premix) 100 mls @ 50 mls/hr IV Q2H [facility] Stop: 07/23/19 05:59 Last Admin: 07/23/19 05:19 Dose: 50 mls/hr Dextrose/Sodium Chloride (Dextrose 5%-Normal Saline) 1,000 mls @ 75 mls/hr IV ASDIRECTED [facility] Last Admin: 07/24/19 04:49 Dose: 75 mls/hr Lidocaine HCl (Xylocaine-Mpf 1%) Confirm Administered Dose 2 mls @ as directed .ROUTE .STK-MED ONE Stop: 07/23/19 00:54 Last Admin: 07/23/19 01:04 Dose: Not Given Lidocaine HCl (Xylocaine-Mpf 1%) 2 ml IV ONETIME [facility] Stop: 07/25/19 22:16 Last Admin: 07/23/19 05:19 Dose: 2 ml Lidocaine HCl (Xylocaine-Mpf 1%) Confirm Administered Dose 5 ml .ROUTE .STK-MED ONE Stop: 07/23/19 03:04 Last Admin: 07/23/19 03:11 Dose: Not Given Morphine Sulfate (Morphine) 2 mg IVPUSH Q2H PRN PRN Reason: Pain Last Admin: 07/23/19 09:17 Dose: 2 mg Ondansetron HCl (Zofran Odt) 4 mg PO Q4H PRN PRN Reason: Nausea Potassium Chloride (Potassium Chloride) 10 meq PO TID [facility] Last Admin: 07/24/19 09:25 Dose: 10 meq Pramipexole Dihydrochloride (Mirapex) 0.125 mg PO BID [facility] Last Admin: 07/24/19 09:25 Dose: 0.125 mg Verapamil HCl (Calan Sr) 180 mg PO DAILY [facility] Last Admin: 07/24/19 09:26 Dose: 180 mg - Exam General: Reports: Moderate Distress HEENT: Reports: Pupils Equal, Other (left eye is fixed to lateral aspect.) Neck: Reports: Supple Lungs: Reports: Clear to Auscultation, Normal Respiratory Effort Cardiovascular: Reports: Regular Rate, Regular Rhythm GI/Abdominal Exam: Normal Bowel Sounds, Soft, Non-Tender, No Organomegaly, No Distention, No Abnormal Bruit, No Mass, Pelvis Stable Extremities: Normal Inspection, Normal Range of Motion, Non-Tender, No Pedal Edema, Normal Capillary Refill Skin: Reports: Warm, Dry, Intact Wound/Incisions: Reports: Healing Well Psy/Mental Status: Reports: Hallucinations
== END 2019-07-24 13:54 ==
LOC: JP.ED 19:36 → JP.ICU 21:38 → JP.MS 07-23 09:23
PROVIDERS: ADMIT Internal Medicine; ATTEND Internal Medicine
DX: I63.9 Cerebral infarction, unspecified (principal); R41.0 Disorientation, unspecified; E87.6 Hypokalemia; I10 Essential (primary) hypertension; C95.90 Leukemia, unspecified not having achieved remission; Z88.2 Allergy status to sulfonamides; Z86.73 Personal history of transient ischemic attack (TIA), and cerebral infarction without residual deficits; Z79.899 Other long term (current) drug therapy
CPT/HCPCS: 36415; 70450; 80048; 80053; 81001; 85025; 87086; 96361; 96365; 96366; 96372; 96375; 96376; 99285-25; A9270-GY; G0378; J1650; J2001; J2270; J3480